=== PATIENT | female | born 1965 | race Caucasian/White ===

== ENCOUNTER 2019-01-29 18:19 | Inpatient (IN) | payer MEDICARE, MEDICAID ==
[~2019-01-29] VITALS: Ht 149.8 cm; Wt 82.6 kg
--- NOTE | ~2019-01-29 | PN ---
[place], [place] PROGRESS NOTE NAME: MARYLU RIVAS UNIT #: [id number] ROOM: 316 DOCTOR: HAYLEY CABRAL MD BIRTHDATE: [birth year] DATE: 02/04/19 ADDENDUM: Resident note reviewed. Agree with observations, recommendations, and overall treatment plan. HAYLEY CABRAL MD CM:PNTRANS [id number] HAYLEY CABRAL MD 02/24/19 1423 HOMER ALMARAZ MIS.LLR
--- NOTE | ~2019-01-29 | WRIGHTHP ---
[place], [place] PATIENT HISTORY AND PHYSICAL EXAM NAME: MARYLU RIVAS UNIT #: [id number] ROOM: 316 DOCTOR: HAYLEY CABRAL MD BIRTHDATE: [birth year] DOS: 01/30/2019 INITIAL PSYCHIATRIC EVALUATION CHIEF COMPLAINT: "I know people are coming to get me, I don't know what to do about it." HISTORY OF PRESENT ILLNESS: This is a 53-year-old white female who presented to the Emergency Room at [facility] acutely paranoid and delusional. The patient had reported that she fears that people have been following her and have been doing so for the last 20+ years. People come up to her house, look into her window. There are people plotting to hurt her. She has been followed at [facility], but has not responded to the medication and it was felt that an inpatient hospitalization was warranted at this time. Most recently, psychiatrically, the patient has been on Prozac, Lexapro, Geodon, Ativan, Depakote, clonidine and benztropine without benefit. PAST MEDICAL HISTORY: Remarkable for hypertension. SOCIAL HISTORY: The patient denies cigarette smoking, drinking alcohol, using illicit drugs. STRENGTHS: Ambulatory, good verbal skills. WEAKNESSES: Chronic severe mental health issues and poor coping skills. MENTAL STATUS: The patient is alert and oriented. Mood is depressed with anxious overtones and she is very paranoid and delusional. She does believe that people have attempted to come on to the unit in an effort to follow her and these people have been doing so for many, many years. She is fearful, but redirectable. Memory for the most part is intact. DIAGNOSIS: Schizoaffective disorder versus major depression, recurrent, with psychotic features. PLAN: Given the fact that she is so grossly psychotic, the current medication regimen is ineffective, I have gone ahead and discontinued Prozac, Lexapro, Geodon, Ativan, Depakote and Cogentin. Instead, I have replaced it with Invega 6 mg in the morning and Remeron 15 mg at night. We will monitor and support, engage in individual and stallworth milieu activity, returning to the least restrictive environment when psychiatrically stable. [place], [place] PATIENT HISTORY AND PHYSICAL EXAM NAME: MARYLU RIVAS UNIT #: [id number] ROOM: [facility] DOCTOR: HAYLEY CABRAL MD BIRTHDATE: [birth year] HAYLEY CABRAL MD CM:HISPHYS:PATIENT HISTORY AND PHYSICAL EXAMINATION 6 HAYLEY CABRAL MD 01/30/19 0926 interface
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
--- NOTE | ~2019-01-29 | PN ---
[place], [place] PROGRESS NOTE NAME: MARYLU RIVAS UNIT #: [id number] ROOM: 316 DOCTOR: HAYLEY CABRAL MD BIRTHDATE: [birth year] DATE: 02/02/19 ADDENDUM: Resident note reviewed. Agree with observations, recommendations, and overall treatment plan. HAYLEY CABRAL MD CM:PNTRANS [id number] HAYLEY CABRAL MD 02/24/19 1424 HOMER ALMARAZ MIS.LLR
--- NOTE | ~2019-01-29 | PR ---
[place], [place] PROGRESS NOTE NAME: MARYLU RIVAS UNIT #: [id number] ROOM: 316 DOCTOR: STACI MANN DO BIRTHDATE: [birth year] DOS: 02/02/2019 PSYCHIATRIC PROGRESS NOTE CHIEF COMPLAINT: "Hi, yesterday went well." SUMMARY OF PRESENT ILLNESS: The patient is interviewed with sitting on her bed. The patient states she is starting to feel better; however, she still thinks police is after her. She voiced that she knows that "police is coming for me, I'm wanted for shoplifting." We informed the patient that the police has not contacted us and we are not aware of any law enforcement coming for me. Per nursing staff, the patient slept throughout the night. The patient is still paranoid and mildly anxious. Yesterday, initially during the day, she kept stating that there are warrant out for her arrest for shoplifting and social security. She voiced "part of me feel like I'm have not allowed to live, got in trouble 25 years ago, they overlooked it somehow. She did state that prior to admission she thought her house, TV and phone were bugged and the TV was speaking to her. She also states she was afraid that she will get agitated every time she heard them; she thought they were talking about her. Throughout the day, though she started to become calmer. She did have an opportunity to speak with her on the phone and the conversation went well. Her even stated that she appears calmer. Later on the patient also informed nursing staff that she is no longer hearing the voices through the wall. MENTAL STATUS EXAMINATION: She is alert and oriented x 3. Mood is depressed with some anxious overtones. Mood is tending more to euthymia. There is no benjie or hypomania present. The patient is paranoid about the police. Memory for the most part is intact. PLAN: Continue current medication regimen. We will engage in individual and stallworth milieu activity, returning to the least restrictive environment when psychiatrically stable. Staci Mann DO [place], [place] PROGRESS NOTE NAME: MARYLU RIVAS UNIT #: [id number] ROOM: [facility] DOCTOR: STACI MANN DO BIRTHDATE: [birth year] HAYLEY CABRAL MD CM:CITLALY [id number] STACI MANN DO 02/02/19 1233 interface
--- NOTE | ~2019-01-29 | PN ---
[place], [place] PROGRESS NOTE NAME: MARYLU RIVAS UNIT #: [id number] ROOM: 316 DOCTOR: HAYLEY CABRAL MD BIRTHDATE: [birth year] DATE: 02/03/19 ADDENDUM: Resident note reviewed. Agree with observations, recommendations, and overall treatment plan. HAYLEY CABRAL MD CM:PNTRANS [id number] 1423 HAYLEY CABRAL MD 02/24/19 1423 HOMER ALMARAZ MIS.LLR
--- NOTE | ~2019-01-29 | PR ---
[place], [place] PROGRESS NOTE NAME: MARYLU RIVAS UNIT #: [id number] ROOM: 316 DOCTOR: HAYLEY CABRAL MD BIRTHDATE: [birth year] DOS: 02/05/2019 CHIEF COMPLAINT: "How could I do the things that people say I do when I have been housebound for the last 3 years." SUMMARY OF THE VISIT: The patient was interviewed once again in her room. She continues to be very paranoid and very obsessed over people laughing at her. Nurses do report that as the day progresses, she does seem to be less depressed and the meds do seem to be taking hold. She is able to question some of her thoughts at times. Outwardly, she is tolerating the medication regimen well without any sedation, somnolence, extrapyramidal symptoms or tardive dyskinesia. MENTAL STATUS: She is alert and oriented with minor time gaps, but overall intact. Mood does seem to be somewhat depressed and anxious, but redirectable. PLAN: At this point in time, I will maintain her current psychotropic regimen that includes Invega oral, Invega Sustenna. She is due for a secondary loading dose on Friday as well as the Geodon 80 mg twice daily. The patient is pushing for discharge and at this point in time, I did tell her that my plan would be to receive a secondary loading dose of Invega Sustenna on Friday and monitor then over the next 24 hours for both risks and benefits. If she is stable and exhibiting no significant issues, would look to discharge then. HAYLEY CABRAL MD CM:PNTRANS [phone] HAYLEY CABRAL MD 02/05/19 0933 interface
--- NOTE | ~2019-01-29 | PR ---
[place], [place] PROGRESS NOTE NAME: MARYLU RIVAS UNIT #: [id number] ROOM: 316 DOCTOR: HAYLEY CABRAL MD BIRTHDATE: [birth year] DOS: 02/01/2019 INTERVAL NOTE CHIEF COMPLAINT: "I know, they think I am a snitch. I know, everyone is talking about me. Nothing is going to get better. I have been this way for 25 years." SUMMARY OF THE VISIT: The patient was interviewed with one of the nurses present. She was very negative and paranoid, very nihilistic in her beliefs. I attempted to support and redirect and ultimately stated that we would agree to disagree that her illness is making it such that all she can think of is negative. Outwardly, she is tolerating the medicine well. She did require much p.r.n. intervention yesterday with minimal results, but tolerated everything well. MENTAL STATUS: She is alert and oriented. Mood does seem to be very depressed and she remains very delusional and nihilistic and paranoid. PLAN: I am going to go ahead and discontinue her straight Vistaril and utilize Ativan 1 mg t.i.d. and Geodon 80 mg b.i.d. augmented by the Invega 6 mg in the a.m. My hope is that through the use of 2 antipsychotics, we will breakthrough this horrible psychosis that has yet to budge with the current medication regimen. We will engage in individual and stallworth milieu activity, returning to the least restrictive environment when psychiatrically stable. HAYLEY CABRAL MD CM:PNTRANS [id number] HAYLEY CABRAL MD 02/01/19 2251 interface
--- NOTE | ~2019-01-29 | PR ---
[place], [place] PROGRESS NOTE NAME: MARYLU RIVAS UNIT #: [id number] ROOM: 316 DOCTOR: STACI MANN DO BIRTHDATE: [birth year] DOS: 02/03/2019 PSYCHIATRIC PROGRESS NOTE CHIEF COMPLAINT: "I know you are here to make fun of me and take me to shelter." SUMMARY OF VISIT: The patient is interviewed while sitting on her bed. She is constantly fidgeting and having her eyes dark everywhere while talking to us. The patient repeatedly states that everyone is laughing at her and we are liars. She voiced stop laughing at me, I can hear you in the hallway, you think I am an actress wearing wires. We attempted to redirect the patient that we are not laughing at her and the police are not here for her, but the patient remains fixated on these delusions. The patient mentioned that she wanted to speak to her grain thresher in [place] who she is known for 15 years and states that that grain thresher does not laugh at her. We mentioned Staci Soler to her who is a grain thresher who she saw in the ED and the patient is familiar with her name and states she is willing to speak to her. Per nursing staff, the patient continues to be anxious and paranoid. She refused breakfast and vitals, stating that all the staff are liars. She required redirection and continues to be unreceptive to presentation of reality. She thought that the maintenance men on the floor that were working were undercover police liaison officer spying on her. She also continues to pace the hallways and tell staff members that people are talking about her. The patient did sleep throughout most of the night; however, she woke up for about 1 hour approaching nurse's desk and stating that the police are coming to take her to shelter because the voices told her. When asked if she is having any auditory hallucinations, she denied hearing any voices. MENTAL STATUS EXAMINATION: She is alert and oriented. Mood is depressed and anxious. She was very paranoid and delusional. There is no benjie or hypomania. Memory for the most part is intact. PLAN: Invega Sustenna 234 mg IM today. We will engage in individual and stallworth milieu activity, returning to the least restrictive environment when psychiatrically stable. Staci Mann DO [place], [place] PROGRESS NOTE NAME: MARYLU RIVAS UNIT #: [id number] ROOM: [facility] DOCTOR: STACI MANN DO BIRTHDATE: [birth year] HAYLEY CABRAL MD CM:PNTRANS [phone] STACI MANN DO 03/10/19 0943 interface
--- NOTE | ~2019-01-29 | PR ---
[place], [place] PROGRESS NOTE NAME: MARYLU RIVAS UNIT #: [id number] ROOM: 316 DOCTOR: HAYLEY CABRAL MD BIRTHDATE: [birth year] DOS: 01/31/2019 INTERVAL NOTE CHIEF COMPLAINT: "I just know they are out to get me, I am not going to do anything bad, I hear them telling me I should do bad things." SUMMARY OF THE VISIT: The patient was interviewed as she was sitting on her bed once again rocking. She was sitting with one of the nurses who was redirecting her and supporting her. We discussed how she is doing and she reports she is still feeling paranoid and realizes at some level that these are irrational thoughts. She did report that she slept a little better. Her major other complaint was overriding anxiety throughout the day. She has used Ativan p.r.n. with good results without oversedation or somnolence. MENTAL STATUS: She is alert and oriented. Mood does seem to be depressed with anxious overtones and significant paranoia remains. Memory for the most part is intact. PLAN: Her blood pressure has been running low. I will discontinue her Catapres and have nursing monitor closely. I will add Vistaril 50 mg 3 times daily straight to decrease her anxiety. We will engage her in individual and stallworth milieu activity, returning to the least restrictive environment when psychiatrically stable. HAYLEY CABRAL MD CM:PNTRANS 15 HAYLEY CABRAL MD 01/31/192114 interface
--- NOTE | ~2019-01-29 | EKG ---
[place], [place] ELECTROCARDIOGRAM REPORT NAME: MARYLU RIVAS UNIT #: [id number] ROOM: 316 DOCTOR: ANNE-MARIE DRAFT REPORT BIRTHDATE: [birth year] [facility] Test Date: 2019-01-29 Test Time: 21:24:08 Pat Name: MARYLU RIVAS Department: Room: 316 Gender: F Instrumentation Designer: : 1965 Requested By: JS JUAREZ Order Number: [id number] Reading MD: Italia Rosario MD Measurements Intervals [place] Rate: 78 P: 53 SD: 127 QRS: 26 QRSD: 78 T: -13 QT: 412 QTc: 470 Interpretive Statements Sinus rhythm Electronically Signed On 02-01-2019 10:03:12 PDT by Italia Rosario MD CM:EKGRPT:ELECTROCARDIOGRAM REPORT 23 1003 JS JUAREZ EPIPHANY DRAFT REPORT JS JUAREZ
--- NOTE | 2019-01-29 19:05 | NUR ---
REPORT RECEIVED FROM RAJWINDER Taylor RN AT THIS TIME
[2019-01-29 20:10] LABS: BASO % 0.5 % (0.0-1.0); EOS % 0.7 % (1.0-4.0); HEMATOCRIT 40.5 % (37.0-47.0); HEMOGLOBIN 13.9 g/dl (12.0-16.0); LYMPH # 1.4 10*3/uL (1.3-4.4); MEAN CELL VOLUME 91.6 fl (81.0-99.0); MEAN CORPUSCULAR HGB 31.4 pg (27.0-31.0); MEAN CORPUSCULAR HGB CONC 34.3 g/dl (33.0-37.0); MONO # 0.7 10*3/uL (0.1-1.0); MONO % 11.6 % (3.0-9.0); NEUT # 3.7 10*3/uL (2.3-7.9); NEUT % 63.9 % (47.0-73.0); PLATELET COUNT AUTOMATED 194 10*3/uL (130-400); RED BLOOD COUNT 4.42 10*6/uL (4.10-5.10); RED CELL DISTRI WIDTH 14.7 % (0-14.5); WHITE BLOOD COUNT 5.9 10*3/uL (4.8-10.8)
[2019-01-29 20:25] LABS: ALBUMIN 3.5 gm/dl (3.1-4.5); ALKALINE PHOSPHATASE 63 U/L (45-117); BUN 20 mg/dl (7-24); CHLORIDE 106 mmol/L (98-107); CREATININE 1.09 mg/dL (0.55-1.02); POTASSIUM 3.3 mmol/L (3.5-5.1); SGOT/AST 16 IU/L (3-35); SGPT/ALT 26 U/L (12-78); SODIUM 139 mmol/L (136-145); TOTAL PROTEIN 7.4 gm/dL (6.4-8.2)
[2019-01-29 20:27] LABS: ACETAMINOPHEN (TYLENOL) < 5.0 ug/ml (10-30); ETHYL ALCOHOL < 3.0 mg/dl (<3)
--- NOTE | 2019-01-29 21:09 | NUR ---
PT TO DESK ASKING IF SHE HAS WARRANTS FOR HER ARREST STATES SHE KNOWS SHE HAS WARRANTS FOR SHOP LIFTING 25 YEARS AGO I EXPLAINED TO PT I DONT KNOW ANYTHING ABOUT THAT PT WANTS TO KNOW IF SHE IS BEING DISCHARGED BUT WE ARE WAITING ON MATTHEW MA TO COME AND SEE THE PT I EXPLAINED IT WAS NOT MY DECISION TO DISCHARGE HER AND SHE HAS TO WAIT AND TALK TO MATTHEW PT BACK TO ROOM FAMILY IN ROOM
--- NOTE | 2019-01-29 21:40 | NUR ---
Nurse to nurse report received from Masha GAMINO.
--- NOTE | 2019-01-29 22:00 | NUR ---
Patient reports that she is feeling paranoid, she believes the police are here to press charges against her. Patient continuing to get agitated.
--- NOTE | 2019-01-29 22:21 | NUR ---
Family member leaving at this time. Patient's remains at bedside.
[2019-01-29 22:24] LABS: BILIRUBIN NEGATIVE (NEGATIVE); BLOOD NEGATIVE (NEGATIVE); CLARITY CLEAR (CLEAR); COLOR YELLOW (YELLOW); GLUCOSE NEGATIVE (NEGATIVE); KETONE 1+ (NEGATIVE); LEUKO ESTERASE NEGATIVE (NEGATIVE); NITRITE NEGATIVE (NEGATIVE); PH >= 9.0 (5.0-9.0)
[2019-01-29 22:33] LABS: URINE AMPHETAMINES < 1000 (1000ng/ml); URINE BARBITURATES < 200 (200ng/ml); URINE BENZODIAZEPINES < 200 (200ng/ml); URINE CANNABINOIDS (THC) < 50 (50ng/ml); URINE COCAINE < 300 (300ng/ml); URINE METHADONE < 300 (300ng/ml); URINE OPIATES < 300 (300ng/ml)
[2019-01-29 22:34] LABS: URINE PHENCYCLIDINE < 25 (25ng/ml)
[2019-01-29] MEDS ORDERED: FLUOXETINE HCL40 MG PO (23:21)
[2019-01-29] MEDS ORDERED: GEODON80 MG PO (23:22)
[2019-01-29] MEDS ORDERED: LEXAPRO10 MG PO (23:22)
[2019-01-29] MEDS ORDERED: ATIVAN1 MG PO (23:23)
[2019-01-29] MEDS ORDERED: 'CLONIDINE0.1 MG PO (23:23)
[2019-01-29] MEDS ORDERED: DEPAKOTE ER500 MG PO (23:23)
[2019-01-29] MEDS ORDERED: BENZTROPINE MESY1 MG PO (23:24)
--- NOTE | 2019-01-29 23:40 | NUR ---
MATTHEW MA NOTIFIED WE ARE ADMITTING CLIENT
--- NOTE | 2019-01-30 00:45 | NUR ---
ROBMARYLU a 53 year old F admitted via wheel chair from the EMERGENCY ROOM as a emergency 72 hr. hold admission. Arrived on unit at 0045. ALLERGIES: NKA. Vital signs are: 98.2-72-18 120/78. The client REFUSED TO SIGN ANY ADMISSION PAPERS AT THIS TIME. Admitted under the services of Dr. MISHA BRYAN,[facility]. A search was conducted and hazardous articles were removed. Client was oriented to the unit. PT VERY FEARFUL. VOICES NUMEROUS PARANOID & PERSECUTORY DELUSIONS & IS UNRECEPTIVE TO PRESENTATION OF REALITY. VOICED IDEAS OF REFERENCE FROM THE TV & STATED THE PRESIDENT IS GIVING HER SIGNALS, ESPECIALLY WHEN THE MESSAGES COME ACROSS THE SCREEN. AFTER TAKING PTS VITAL SIGNS, SHE ASKED IF THAT MACHINE WAS "BRINGING UP HER FELONY CHARGES". PER AUTOMATIC SCREWMAKER, PT TOOK ALL OF HER HS MEDICATIONS WHILE IN ER FROM HOME & FAMILY TOOK MEDICATIONS WITH THEM. PT ALSO RECEIVED ATIVAN 1 MG IM AT 0021 IN ER. FINA QUEZADA
--- NOTE | 2019-01-30 01:09 | NUR ---
DR CHING NOTIFIED OF ADMISSION
[2019-01-30 01:19] VITALS: BP 120/78
--- NOTE | 2019-01-30 01:23 | NUR ---
CLIENT DENIES ANY ALLERGIES
--- NOTE | 2019-01-30 01:44 | NUR ---
DR HARRINGTON ON UNIT TO SEE PT FOR MEDICAL CONSULT.
[2019-01-30 01:52] VITALS: BP 120/78
--- NOTE | 2019-01-30 05:18 | NUR ---
PT WAS NOTED TO BE SLEEPING @ 0145 & SLEPT UNTIL 0515 WITH A BRIEF AWAKENING & CAME TO STAFF STATING THAT HER NEIGHBOR IS HERE & SHE IS FOLLOWING HER. REASSURANCE PROVIDED. PT HESITANT BUT RETURNED TO HER ROOM & WENT BACK TO SLEEP.
[2019-01-30 07:29] LABS: THYROID STIM HORMONE (HS) 2.98 uIU/ml (0.358-4.75)
[2019-01-30 08:00] VITALS: BP 112/80
[2019-01-30 08:17] LABS: VITAMIN D, 25-HYDROXY 15.6 ng/mL (30-100)
--- NOTE | 2019-01-30 08:30 | NUR ---
DR. DEL REAL NOTIFIED OF K DUR NOT AVAILABLE FROM [facility]; ONE TIME K DUR 40MEQ DUE.
--- NOTE | 2019-01-30 11:04 | NUR ---
DR. ABBASI ON UNIT TO ASSESS PATIENT.
--- NOTE | 2019-01-30 11:38 | NUR ---
AM GROUP/CRAFTS/MUSIC PT ATTENDED FIRST 10 MINUTES OF GROUP AND PARTICIPATED IN A SHORT CHAIR EXERCISE. PT THEN LEFT TO NOT RETURN TO GROUP. PT'S NURSE INFORMED THIS STAFF THAT PT IS HEARING VOICES AND REQUESTS MUSIC IN QUIET ROOM. PT REMAINED IN QUIET ROOM WITH MUSIC REMIANDER OF GROUP TIME. PT WILL CONTINUE TO BE ECNOURAGED TO ATTEND AND PARTICIPATE IN FUTURE GROUP SESSIONS.
--- NOTE | 2019-01-30 11:59 | NUR ---
P: INCREASED PARANOIA, EYE SCANNING, AUDITORY/VISUAL HALLUCINATION, FIXED DELUSION VOICING THOUGHTS THAT POLICE ARE AFTER HER. BUGS PLACED IN PLANTS. MOVIE ON IN THE DINING ROOM; PATIENT STATES SHE IS ON THE TV A WANTED PERSON. VOICES ARE TELLING THE POLICE WILL GET HER WHEN SHE GOES HOME. EDGAR HEARS THE SECURTIY WALKIE TALKIE ANG THINKING THE POLICE ARE LOOKING FOR HER. I: ONE ON ONE PROVIDED TO VOICE FEELING, VALIDATING PATIENT CONCERNS WITH HER VOICES AND PROVIDING ALOT OF REASSURANCE. R: ONE ON ONE EFFECTIVE BUT PATIENT STILL BELIEVES THE VOICES. PATIENT VOICING SHE IS NOT ABLE TO REST. REQUESTING SOMETHING TO HELP. P: PRN ATIVAN 1MG GIVEN PO FOR INCREASED ANXIETY. CONTINUE TO PROVIDE ONE ONE ONE SUPPORT AND REORIENT NEEDED.
--- NOTE | 2019-01-30 12:39 | NUR ---
psychosocial hx completed this date.
--- NOTE | 2019-01-30 13:00 | NUR ---
ASKED PATIENT IF MEDICATION WAS HELPING. PATIENT STATED YES. PRN ATIVAN EFFECTIVE. PATIENT RESTING IN BED AT THIS TIME.
--- NOTE | 2019-01-30 15:49 | NUR ---
PM GROUP/LEISURE SKILLS PT ATTENDED AND PARTICIPATED IN THE FIRST HALF OF GROUP ALTHOUGH PT STATED "I THINK IM JUST GOING TO STAY IN MY ROOM" WHEN THIS STAFF ENCOURAGED PT TO ATTEND GROUP, WITH NURSES ASSITED ENCOURAGEMENT PT ATTENDED. PT ISOLATIVE TO SELF. PT WILL CONTINUE TO BE ENCOURAGED TO ATTEND AND PARTICIPATE IN FUTURE GROUP SESSIONS.
[2019-01-30 20:25] VITALS: BP 134/76
--- NOTE | 2019-01-30 23:37 | NUR ---
P-PARANOID THOUGHTS, PATIENT APPROACHED STAFF STATING "THAT RADIO THAT IS GOING OFF, IS THAT FOR ME? ARE THE COMMERCIAL REAL ESTATE ASSOCIATE COMING FOR ME?". I- ASSESS ORIENTATION, MOOD, AND BEHAVIOR. PROVIDE 1:1 FOR PATIENT TO VOICE THOUGHTS AND FEARS. PROVIDE EMOTIONAL SUPPORT WITH ASSURENCE OF SAFETY. ENCOURAGE MEDICATION COMPLIANCE AND EDUCATE. R-PATIENT ALERT AND ORIENTED X4. MOOD ANXIOUS, DEPRESSED. PT CALM, COOPERATIVE, AND INTERACTIVE. DURING 1:1 PATIENT STATED "IM TRYING TO GET OUT OF THE ROOM MORE AND INTERACT WITH PEOPLE, I ALSO COLORED SOME TOO". PATIENT ALSO STATED "I HAVE BEEN DEALING WITH THIS PARANOIA FOR YEARS, BUT NOW IM STARTING TO LOSE REALITY ALSO AND HAVING TROUBLE REMEMBERING NUMBERS". PT PROVIDED WITH EMOTIONAL SUPPORT AND REASSURANCE OF SAFETY, PT RECEPTIVE TO INTERVENTIONS WITH POSITIVE EFFECT. DENIES SI/HI AND HALLUCINATIONS, NO NOTED RESPONDING TO INTERNAL STIMULI. MEDICATION COMPLIANT WITHOUT DIFFICULTY AFTER REVIEW. NO PHYSICAL COMPLAINTS VOICED. PATIENT CURRENTLY LAYING DOWN WITH EYES CLOSED. RESPIRATIONS EASY AND REGULAR, NO SIGNS OR SYMPTOMS OF DISTRESS NOTED. P-CONTINUE TO PROVIDE 1:1 FOR PATIENT TO VOICE THOUGHTS AND FEARS. PROVIDE REALITY ORIENTATION, REASSURANCE OF SAFETY AND EMOTIONAL SUPPORT NEEDED. ENCOURAGE MEDICATION COMPLIANCE. MAINTAIN Q 15 MIN CHECKS.
--- NOTE | 2019-01-31 00:27 | NUR ---
24 HOUR CHART CHECK COMPLETED.
--- NOTE | 2019-01-31 05:47 | NUR ---
PATIENT OBSERVED ON Q 15 MIN SAFETY CHECKS TO HAVE SLEPT APPROX 5 HOURS INTERRUPTED WITH MULTIPLE AWAKENINGS NOTED OF PATIENT VERBALIZING PARANOID THOUGHTS, "WHEN ARE THE SECTION HOUSEKEEPER COMING TO GET ME FOR WARRENTS I HAVE". 1:1, REALITY ORIENTATION, AND EMOTIONAL SUPPORT PROVIDED WITH SUCCESS. NO SIGNS OR SYMPTOMS OF DISTRESS NOTED.
[2019-01-31 06:55] LABS: BASO # 0.1 10*3/uL (0.0-0.1); BASO % 0.9 % (0.0-1.0); EOS # 0.1 10*3/uL (0.0-0.4); EOS % 2.2 % (1.0-4.0); HEMATOCRIT 44.7 % (37.0-47.0); HEMOGLOBIN 14.8 g/dl (12.0-16.0); LYMPH # 1.4 10*3/uL (1.3-4.4); LYMPH % 24.8 % (27.0-41.0); MEAN CELL VOLUME 94.5 fl (81.0-99.0); MEAN CORPUSCULAR HGB 31.3 pg (27.0-31.0); MEAN CORPUSCULAR HGB CONC 33.1 g/dl (33.0-37.0); MEAN PLATELET VOLUME 10.1 fl (9.6-12.3); MONO # 0.7 10*3/uL (0.1-1.0); MONO % 11.2 % (3.0-9.0); NEUT # 3.5 10*3/uL (2.3-7.9); NEUT % 60.7 % (47.0-73.0); PLATELET COUNT AUTOMATED 204 10*3/uL (130-400); RED BLOOD COUNT 4.73 10*6/uL (4.10-5.10); RED CELL DISTRI WIDTH 14.8 % (0-14.5); WHITE BLOOD COUNT 5.8 10*3/uL (4.8-10.8)
[2019-01-31 07:08] LABS: ALBUMIN 3.3 gm/dl (3.1-4.5); CREATININE 1.14 mg/dL (0.55-1.02); POTASSIUM 3.8 mmol/L (3.5-5.1); TOTAL PROTEIN 7.5 gm/dL (6.4-8.2)
[2019-01-31 07:51] VITALS: BP 115/59
--- NOTE | 2019-01-31 10:26 | NUR ---
ON UNIT TO ASSESS PT, UPDATE PROVIDED.
--- NOTE | 2019-01-31 10:51 | NUR ---
P: PARANOID/PERSECTORY DELUSION, AUDITORY HALLUCINATIONS. ACCUSSING STAFF OF SETTING HER UP, OTHERS ARE TALKING ABOUT HER, THINKS SHE IS ON TV WITH WARRART WHILE OTHER PATIENTS ARE WATCHING A Saranas MOVIE. ASKED THIS NURSE IF I WAS A MARKETING AND PROMOTIONS MANAGER AND HAD ANY WARRARTS ON HER TO CHECK AND SEE. PATIENT PREOCCUPIED ABOUT WANTING TO GO HOME. PACING UP AND DOWN HALLWAY FROM NURSES STATION AND HER ROOM. I: ONE ON ONE, ENCOURAGED TO SIT IN QUIET ROOM FOR LOW STIMULI AREA WITH MUSIC THERAPY. REDIRECTION/REORIENTATION, PRESENTING REALITY NEEDED. R: INEFFECTIVE P: PRN ATIVAN 1MG PO GIVEN AT THIS TIME PATIENT IS ALERT AND ORIENT TO PERSON, PLACE AND SITUATION. MOOD IS ANXIOUS/IRRITABLE. DENIES ANY HI/SI OR PAIN. INDEPENDENT WITH ACTIVITIES OF DAILY LIVING, CONTINENT OF BOWEL AND BLADDER. SET UP FOR MEALS, INTAKES VARY WITH ENCOURAGEMENT TO DRINK MORE LIQUIDS. Q 15 MINUTE SAFETY CHECKS. MEDICATION COMPLAINT WITH EDUCATION PROVIDED. AMBULATORY WITH STEADY GAIT. CONTINUE TO MONITOR FOR HALLUCINATIONS AND DELUSIONS; PROVIDE ONE ON ONE, REDIRECTION/ORIENTATION AND REALITY NEEDED.
--- NOTE | 2019-01-31 11:59 | NUR ---
PRN ATIVAN EFFECTIVE PER PATIENT.
--- NOTE | 2019-01-31 13:36 | NUR ---
PATIENT PACING, INCREASING COMING UP TO THE NURSES STATION WITH FIXED DELUSIONS OF THE POLICE COMING TO GET HER WITH A WARRANT. ONE ON ONE, REDIRECTION, ENCOURAGED PATIENT TO GO IN QUIET ROOM WITH LOW STIMULI, REALITY PRESENTED. PATIENT WILL NOT LISTEN TO NURSES AT THE NURSE STATION. INEFFECTIVE. PATIENT UP AT NURSES STATION EVERY 30 SECONDS, THEN WOULD CALL THE NURSES LIARS. DR. CABRAL NOTIIFED. OKAY TO GIVE PRN GEODON NOW. PATIENT RECEIVED GEODON 20MG IM TO RIGHT DELTOID AND TOLATED WELL. PATIENT ENCOURAGED TO LAY DOWN IN BED TO REST.
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
--- NOTE | 2019-01-31 16:11 | NUR ---
PATIENT UP AT NURSES STATION MULTIPLE TIMES WITH REDIRECTION/ORIENTATION TO PERSON, PLACE AND TIME. REASSURANCE THAT PATIENT IS SAFE IN HOSPITAL AND NO ONE IS SETTING HER UP. LIMIT SETTING PROVIDED. CONTINUING TO MONITOR EFFECTIVENESS OF ATIVAN.
--- NOTE | 2019-01-31 16:21 | NUR ---
PM GROUP/BINGO/LEISURE SKILLS PT NOT APPROPRIATE FOR GROUP DUE TO PT PARANOIA. PT TOOK THIS STAFF ASIDE BEFORE GROUP ASKING WHY SHE HAS A WARRANT FOR MURDER. THIS STAFF ATTEMPTED TO COMFORT PT BY EXPLAINING THAT PT IS SAFE HERE AND GROUP THERAPY MAY HELP IN DISTRACTING PT. PT DID NOT ATTEND AND KEPT ASKING THE NURSES THE SAME QUESTIONS OVER. PT THEN CAME INTO ACTIVITIES YELLING AT THIS STAFF "WHY WOULD YOU ACCUSE ME OF HURTING ANYONE, I WOULD NEVER DO THAT" THIS STAFF THEN EXPLAINS THAT NOBODY IS ACCUSING HER OF ANYTHING. PT THEN EXITED AND DID NOT RETURN BACK TO ACTIVITIES. PT WILL CONTINUE TO BE ENCOURAGED TO ATTEND AND PARTICIPATE IN FUTURE GROUP ACTIVITIES.
--- NOTE | 2019-01-31 16:30 | NUR ---
PATIENT UP AT NURSES STATION, DINNER READY. ENCOURAGED PATIENT TO SIT AT TIME TO EAT DINNER. PATIENT REFUSED DINNER. PATIENT RETURNED TO ROOM.
--- NOTE | 2019-01-31 16:50 | NUR ---
PATIENT RESTING IN BED, RESTING QUIETLY. PRN ATIVAN EFFECTIVE.
[2019-01-31 20:28] VITALS: BP 124/85
--- NOTE | 2019-02-01 01:32 | NUR ---
P-PARANOID/PERSECTORY, PT CONTINUES TO ACCUSE STAFF OF SETTING HER UP, TALKING ABOUT HER, AND FILING COURT PAPERS ON HER TO PRESS CHARGES. PT ALSO REMAINS PREOCCUPIED THAT FRONT OFFICE JAVA DEVELOPER ARE COMING FOR HER TO TAKE HER TO LONG-TERM. I- PROVIDE REALITY ORIENTATION WITH REDIRECTION. PROVIDE 1:1 FOR PATIENT TO VOICE THOUGHTS AND FEARS. PROVIDE EMOTIONAL SUPPORT WITH ASSURENCE OF SAFETY. ENCOURAGE MEDICATION COMPLIANCE AND EDUCATE. R-PT PRESENTED WITH REALITY ON MULTIPLE OCCASIONS WITH NO SUCCESS, PT CONTINUES TO BE FIXATED THAT POLICE ARE COMING FOR HER WITH WARRENTS, PT ALSO STATED TO THIS NURSE DURING 1:1 "I DONT KNOW WHAT YOU ALL ARE DOING AROUND HERE BUT I KNOW ITS SOMETHING, I DONT KNOW WHY EVERYONE IS LYING". PT ALSO NOTED TO BECOME INTRUSIVE AND DISRUPTIVE AT TIMES, APPROACHING STAFF AND THE NURSES STATION WITH VARIOUS ACCUSATIONS, REDIRECTED WITH MINIMAL AGITATION AND DIFFICULTY EACH TIME. PT PROVIDED WITH EMOTIONAL SUPPORT AND REASSURANCE OF SAFETY, PT RECEPTIVE TO INTERVENTIONS WITH POSITIVE EFFECT FOR SHORT PERIODS. ALERT AND ORIENTED X4. DENIES SI/HI AND HALLUCINATIONS, NO NOTED RESPONDING TO INTERNAL STIMULI. MEDICATION COMPLIANT WITHOUT DIFFICULTY AFTER REVIEW. RECEIVED PRN TYLENOL 650MG REQUESTED FOR C/O OF A HEADACHE WITH A RATING OF 8/10 AT 0124, NO OTHER PHYSICAL COMPLAINTS NOTED. PATIENT CURRENTLY LAYING DOWN WITH EYES CLOSED. RESPIRATIONS EASY AND REGULAR, NO SIGNS OR SYMPTOMS OF DISTRESS NOTED. P-CONTINUE TO PROVIDE 1:1 FOR PATIENT TO VOICE THOUGHTS AND FEARS. PROVIDE REALITY ORIENTATION, REASSURANCE OF SAFETY AND EMOTIONAL SUPPORT NEEDED. ENCOURAGE MEDICATION COMPLIANCE. MAINTAIN Q 15 MIN CHECKS.
--- NOTE | 2019-02-01 02:28 | NUR ---
24 HOUR CHART CHECK COMPLETED.
--- NOTE | 2019-02-01 05:22 | NUR ---
PATIENT OBSERVED ON Q 15 MIN CHECKS TO HAVE SLEPT APPROX 4 HOURS INTERRUPTED WITH MULTIPLE AWAKENINGS NOTED OF PATIENT APPROACHING STAFF DURING Q 15 MIN CHECKS STATING "WHAT ARE YOU SAYING ABOUT ME, I KNOW YOU SAID SOMETHING ABOUT ME", PT REORIENTED TO REALITY AND REDIRECTED BACK TO BED. NO SIGNS OR SYMPTOMS OF DISTRESS NOTED.
[2019-02-01 07:15] VITALS: BP 130/70
--- NOTE | 2019-02-01 08:15 | NUR ---
Treatment Plan meeting with Dr. Marti RN, AT and Care Clinician. Plan for discharge at the end of the week. Pt. to return home with Spouse.
--- NOTE | 2019-02-01 08:20 | NUR ---
DR. ABBASI ON UNIT TO ASSESS PATIENT.
--- NOTE | 2019-02-01 11:35 | NUR ---
AM GROUP/LEISURE PT ATTENDED AND PARTICIPATED SOME. PT HAD TROUBLE FOCUSING DUE TO THOUGHTS RACING, THIS STAFF ATTEMPTED TO GET PT TO FOCUS ON MUSIC. PT KEPT ASSOCIATING STAFF CONVERSATIONS TO BE ABOUT HER WHEN THEY WERE NOT. THIS STAFF KEPT REDIRECTING PT. PT TEARFUL AT TIMES STATING "I JUST CANT TRUST ANYBODY, HOW AM I SUPPOSED TO BELIEVE YOU?" THIS STAFF ATTEMPTED TO COMFORT PT. PT MORE RELAXED AT TIMES LISTENING TO PEER ALTHOUGH WOULD BECOME PARANOID WITHIN A FEW MINUTES AND IN NEED OF REDIRECTION AND REORIENTATION. PT WILL CONTINUE TO BE ENCOURAGED TO ATTEND AND PARTICIPATE IN FUTURE GROUP SESSIONS.
--- NOTE | 2019-02-01 15:51 | NUR ---
PM GROUP/ART/MUSIC PT ATTENDED AND PARTICIPATED. PT DID NOT SAY MUCH AND WORKED ON PAINTING BIRDHOUSE AND LISTENING TO MUSIC. A PEER INTERACTING WITH PT AND PT POLITE AND SMILING. PT DID QUESTION IF NURSES TALKING ABOUT HER BUT PT EASIER TO REDIRECT THIS GROUP. PT DID NOT EXPRESS ANY HALLUCINATIONS AT THIS TIME. PT WILL CONTINUE TO BE ENCOURAGED TO ATTEND AND PARTICIPATE IN FUTURE GROUP SESSIONS.
--- NOTE | 2019-02-01 17:02 | NUR ---
PATIENT IS ALERT AND ORIENTED TO PERSON, PLACE, SITUATION;ABLE TO VOICE NEEDS. MOOD IS IRRITABLE, ANXIOUS AND LABILE. PATIENT IS PREOCCUPIED AND PARANOID, HAVING AUDITORY HALLUCINATIONS AND FIXED DELUSIONS OF GOING TO GROUP HOME AFTER HOSPTIAL STAY. TALKS ABOUT DR. ROBLEDO BEING ANGRY AT HER FOR THE BOX OF MEDICATIONS SHE HAS. STATING THEY ARE IN THE OTHER ROOM. PATIENT PROVIDED WITH REORIENTATION, REDIRECTION, ONE ON ONE WITH GUIDED IMAGERY NEEDED TO HELP WITH ANXIOUS. MEDICATION COMPLAINT WITH EDUCATION PROVIDED. Q 1`5 MINUTE SAFETY CHECKS MAINTAINED. INDEPENDENT WITH ACTIVITIES OF DAILY LIVING, CONTINENT OF BOWEL AND BLADDER. SET UP FOR MEALS WITH ENCOURAGEMENT. AMBULATORY WITH STEADY GAIT. PATIENT INTERACTIVE WITH STAFF AND PARTICIPATED IN GROUP SESSION. CONTINUE TO MONITOR PARANOIA, PROIVIDE ONE ONE ONE TO EXPRESS FEELING, REDIRECTION/ORIENTATION WITH REALITY. MONITORING MEDICATION CHANGES.
[2019-02-01 20:00] VITALS: BP 125/65
--- NOTE | 2019-02-01 20:20 | NUR ---
24 HR chart check completed.
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
--- NOTE | 2019-02-02 05:02 | NUR ---
PT HAS SLEPT PAST 2200 WITH 2 BRIEF AWAKENINGS TO GO TO THE BATHROOM.
[2019-02-02 07:58] VITALS: BP 120/72
--- NOTE | 2019-02-02 08:15 | NUR ---
Treatment Plan meeting with Dr. Figueroa RN and Meat Blender. Plan for discharge at the end of the week.
--- NOTE | 2019-02-02 10:05 | NUR ---
DR. ABBASI ON FLOOR TO ASSESS PATIENT.
--- NOTE | 2019-02-02 10:34 | NUR ---
P: DELUSIONAL THOUGHT PROCESS, PARANOID AND ISOLATES SELF IN BEDROOM OR QUIET ROOM I: PRESENT REALITY OFTEN. 1:1 INTERACTION WITH EMOTIONAL SUPPORT PROVIDED. ENCOURAGE TO ATTEND GROUP ACTIVITIES FOR SOCIALIZATION AND EMOTIONAL SUPPORT. OFFER RELAXATION TECHNIQUES AND DIVERSIONAL ACTIVITIES. PROVIDE MEDICATIONS ON TIME WITH EDUCATION. INTRODUCE EACH STAFF AND THEIR ROLE ON THE UNIT. REASSURE THAT THERE IS NO ONE TALKING ABOUT HER. R: PT STATES THAT SHE BELIEVES THAT THERE ARE CHARGES AGAINST HER AND THAT SHE WILL BE GOING TO LONG TERM AFTER SHE GETS OUT OF HERE. PT CONTINUES TO ASK STAFF ABOUT HER CHARGES AND WHAT WILL BE DONE WHILE SHE IS STAYING HERE. PT STATES THAT HER FRIEND 'ERICK' HAD HELPED HER GET SUPPORT FROM THE GOVERNMENT THROUGH SOME KIND OF MEDICARE AND BECAUSE SHE ALREADY HAS SO MUCH MONEY THAT SHE IS NOW IN A LOT OF TROUBLE. PRESENTING REALITY TO PT IS INEFFECTIVE AND DOES NOT BELIEVE THAT SHE DOES NOT HAVE ANY CHARGES AGAINST HER. PT IS MEDICATION COMPLIANT WITH NO DIFFICULTIES. PT ISOLATING SELF INTO QUIET ROOM OR BEDROOM, PT WILL KEEP COMING OUT AND STATING THAT THERE WAS CHARGES AGAINST HER OR THERE WAS AN WORKSHOP MANAGER ON THE FLOOR. REASSURANCE INEFFECTIVE. PT ATTENDING GROUP WITH MUCH ENCOURAGMENT. PT DENIES HALLUCINATIONS, PT IS SHOWING S&S OF AUDITORY HALLUCINATIONS OF EYE DARTING AND TURNING HER HEAD REAL FAST TO LISTEN. P: CONTINUE TO REORIENT PATIENT TO REALITY AND REINTRODUCE STAFF ROLE ON THE UNIT. REASSURE THAT NO ONE IS TALKING ABOUT HER AND THERE ARE NO ONE TALKING ABOUT HER. PRESENT TO REALTIY ABOUT DELUSIONAL THOUGHT PROCESS OF CHARGES AGAINST HER. 1:1 INTERACTION WITH EMOTIONAL SUPPORT WHEN NECESSARY. PROVIDE MEDICATIONS ON TIME PRESCRIBED BY MARIVELYISICIAN. ENCOURAGE TO ATTEND GROUP ACTIVITIES AND INTERACTION WITH PEERS AND STAFF. Q15 MINUTE CHECKS MAINTAINED FOR SAFETY.
--- NOTE | 2019-02-02 13:16 | NUR ---
Shift chart check completed.
--- NOTE | 2019-02-02 15:56 | NUR ---
Call placed to community Payroll Representative at [employer] [facility] to inquire about services in the home.
--- NOTE | 2019-02-02 17:04 | NUR ---
PT CONTINUED ALL SHIFT GOING FROM THE QUIET ROOM, STANDING NEAR THE JAVA TECH LEAD, AND SITTING IN THE DINING ROOM; SHE WOULD COME OUT AND FIND A STAFF MEMBER AND SAY THAT SOMEONE WAS TALKING ABOUT HER IN A GROUP OF PEOPLE THAT WOULD BE CONVERSING. REDIRECTION AND PRESENT TO REALITY REMAINS INEFFECTIVE. PT THOUGHT THAT THE MAINTENCE MEN WORKING LOG SCALER LIGHTS WERE UNDERCOVER PORTAL ADMINISTRATOR SPYING ON HER. REINTRODUCED PATIENT TO STAFF MEMBERS AND THEIR ROLE, REMAINS INEFFECTIVE. PATIENT HAS BEEN NONREDIRECTABLE MOST OF THE DAY. WHEN PATIENT WAS REDIRECTABLE SHE STILL WAS NOT REDIRECTED BACK TO REALITY. PT REMAINS DELUSIONAL.
[2019-02-02 20:00] VITALS: BP 135/77
--- NOTE | 2019-02-02 22:01 | NUR ---
24 HR chart check completed.
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
--- NOTE | 2019-02-03 04:23 | NUR ---
PT SLEPT PAST 2200 WITH A 1 HOUR AWAKENING & RETURNED TO SLEEP.
--- NOTE | 2019-02-03 08:00 | NUR ---
PT REFUSED VITAL SIGNS ASSESSMENT AND BREAKFAST DESPITE MULTIPLE ATTEMPTS THIS AM, PT PARANOID AND SUSPICIOUS OF STAFF AT THIS TIME, STATES "I'M NOT TALKING TO YOU GUYS BECAUSE YOU ARE ACCUSING ME OF THINGS". UNABLE TO REDIRECT OR REORIENT AT THIS TIME, WILL REAPPROACH.
--- NOTE | 2019-02-03 08:15 | NUR ---
Treatment Plan meeting with Dr. Marti, RN, AT and Proj Engineer. Plan for discharge next week. Pt. is to return home with her .
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
[2019-02-03 08:55] VITALS: BP 126/74
--- NOTE | 2019-02-03 09:00 | NUR ---
RECIEVED CALL FROM PT'S , UPDATE PROVIDED.
--- NOTE | 2019-02-03 10:56 | NUR ---
SPOKE TO AT THIS TIME, UPDATED ON PT STATUS, STATES TO GIVE GEODON 20MG IM AND ATIVAN 2MG IM NOW.
--- NOTE | 2019-02-03 11:09 | NUR ---
VERIFIED WITH PRN MEDICATIONS TO BE GIVEN AT THIS TIME D/T INCREASED PARANOIA AND AGITATION. UNABLE TO REDIRECT OR CALM DESPITE MULTIPLE AND FREQUENT INTERVENTIONS BY STAFF. MADE AWARE PT HAD GEODON 80MG PO AND ATIVAN 1MG PO THIS AM WITH MORNING MEDS AT 0954. STATES OK TO PROCEED WITH PRN GEODON 2OMG IM AT THIS TIME, DECREASE PRN ATIVAN TO BE GIVEN AT THIS TIME TO 1MG IM. WITNESSED BY 2ND RN JOSE ANGEL
--- NOTE | 2019-02-03 11:43 | NUR ---
AM GROUP/REMINISCING AND PAINTING PT CHOSE NOT TO ATTEND MORNING GROUP THERAPY DESPITE MUCH ENCOURAGEMENT. PT WILL BE ENCOURAGED TO ATTEND THIS AFTERNOON.
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
--- NOTE | 2019-02-03 13:48 | NUR ---
PT VISIBLY UPSET AT THIS TIME. INCREASING AGITATION NOTED RELATED TO CAR RENTAL DELIVERER NOT CALLING BACK AFTER MULTIPLE MESSAGES LEFT BY STAFF FOR HER TO CALL UNIT. PT ESCORTED BACK TO ROOM TO DE-ESCALATE AND CALM. LIGHTS DIMMED. PT SITTING ON BED WITH RN IN CHAIR, LISTENING TO MEDITATION MUSIC. PT MOOD APPEARS LABILE, RANGING FROM PARANOID THAT THE PEOPLE ARE OUT TO GET HER AND THE POLICE ARE COMING TO TAKE HER AWAY, TO CRYING BECAUSE SHE MISSES HER . EMOTIONAL SUPPORT PROVIDED AND REALITY PRESENTED WITHOUT EFFECT. PT VOICING THAT SHE CAN HEAR PEOPLE AND HER CALLING FOR HER. WILL CONTINUE TO PROVIDE SUPPORT AND REDIRECT.
--- NOTE | 2019-02-03 15:08 | NUR ---
Second Voice Message left for Dental Hygienist Mobile Coordinator Keke at [facility] [phone] to discuss discharge Plans.
--- NOTE | 2019-02-03 15:20 | NUR ---
TELEPHONE CONFERENCE COMPLETED WITH FRAN (PTS FINANCIAL ADVOCATE) AND PT WITH PTS CONSENT. FRAN PROVIDED PT REASSURANCE AND REALITY PRESENTATION, DID THIS RN RELATED TO PARANOID AND PERSECUTORY DELUSIONS. PT FINALLY BEGAN TO ACCEPT THAT SHE IS SUFFERING FROM PARANOIA AND MENTAL HEALTH ISSUES END THE END OF THE CONVERSATION. PT AGREED TO WORK WITH STAFF IN HER RECOVERY WHILE ADMITTED. PT NOW LAYING IN BED WITH EYES CLOSED AFTER MUCH ENCOURAGEMENT FROM STAFF TO REST AND RELAX THIS AFTERNOON. RESPS EASY AND EVEN ON ROOM AIR.
--- NOTE | 2019-02-03 15:41 | NUR ---
PM GROUP/ART AND MUSIC PT WAS PACING CARBAJAL AND INVITED TO ATTEND AFTERNOON GROUP. PT BEGAN ASKING IF I KNEW CERTAIN PEOPLE AND QUESTIONS REGARDING THE LAW. PT WAS REDIRECTED AND AGAIN ENCOURAGED TO ATTEND BUT REFUSED.
--- NOTE | 2019-02-03 17:23 | NUR ---
SHIFT CHART CHECK COMPLETED.
--- NOTE | 2019-02-03 18:28 | NUR ---
PT SLEPT THROUGH DINNER, PT AWAKE AND ALERT SITTING ON BED AT THIS TIME. PT ALLOWED THIS NURSE TO ENTER ROOM AND SIT DOWN WITH HER. PT CONTINUES TO APPEAR PARANOID BUT IS MUCH MORE CALM AND IN CONTROL OF BEHAVIOR. OFFERED PT DINNER TRAY, PT DECLINED, STATES "I'M OKAY, I WOULD LIKE SOME WATER THOUGH". GLASS OF ICE WATER PROVIDED. DISCUSSED INVEGA SUSTENNA INJECTION WITH PT, PT STATES "YEAH, I'M OKAY WITH THAT. I'VE TAKEN IT BEFORE AND IT HAS HELPED". INVEGA SUSTENNA 234MG IM GIVEN TO LEFT DELTOID AT THIS TIME WITHOUT DIFFICULTY, ADMINISTRATION OF MEDICATION VERIFIED WITH PRIOR TO BEING GIVEN MED GIVEN LATE D/T ADMINISTRATION OF PRN MEDICATIONS THIS AFTERNOON. STATES TO PROCEED WITH GIVING INVEGA SUSTENNA AT THIS TIME, WITNESSED BY 2ND RN SADE. PT TOLERATED INJECTION WELL. PT TALKING WITH ON PHONE AT THIS TIME. Q15 MIN MONITORING CONTINUES.
[2019-02-03 20:00] VITALS: BP 122/66
--- NOTE | 2019-02-03 21:56 | NUR ---
Patient is alert and oriented x 4. Anxious at times. Anxious and paranoid at times. Patient is calm at this time and laying in bed. Provided 1:1 with patient for emotional support. Patient states " I don't need anything right now. I feel sleepy and tired. I am good for right now." Patient is compliant with medications without any difficulty. Plan to redirect/reorient when appropriate and needed. Plan to provide 1:1 for emotional support. Continue to encourage medication compliance. Q 15 minute safety checks continued and maintained. See [facility] flowsheet for further documentation.
--- NOTE | 2019-02-04 00:30 | NUR ---
24 HR chart check completed.
--- NOTE | 2019-02-04 05:39 | NUR ---
Patient slept approx. 9 hours throughout shift. Q 15 minute safety checks continued and maintained.
--- NOTE | 2019-02-04 07:34 | NUR ---
PT AWAKE, ALERT, AMBULATED TO QUIET ROOM FOR BREAKFAST. EATING BREAKFAST IN QUIET ROOM AT THIS TIME PER PT'S PREFERENCE.
[2019-02-04 08:05] VITALS: BP 119/62
--- NOTE | 2019-02-04 08:15 | NUR ---
Treatment Plan meeting with Dr. Marti, RN, AT and Color Checker. Plan for discharge next week with Pt. to return home with her . Follow ups to be arranged.
--- NOTE | 2019-02-04 08:30 | NUR ---
IN TO SEE PT THIS AM, UPDATE GIVEN.
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
--- NOTE | 2019-02-04 11:40 | NUR ---
AM GROUP/ART THERAPY PT CHOSE NOT TO ATTEND MORNING GROUP THERAPY BUT WAS ENCOURAGED BY NURSING STUDENTS AND DECIDED TO ATTEND. PT CAME INTO DAY ROOM AND SAID THAT SHE WOULD PAINT. PT SAT AT TABLE WITH PEERS AND PAPER AND PAINT WAS GIVEN TO PT TO BEGIN. PT ABRUPTLY GOT UP AND STATED TO A RN CLINICAL DOCUMENTATION, "THAT LADY THINKS THAT SHE KNOWS ME! I'M NOT STAYING FOR THIS!" PT EXITED THE ROOM AND DID NOT RETURN.
--- NOTE | 2019-02-04 12:15 | NUR ---
Spoke with Pt. and Her during visiting session to discuss discharge Plans. Pt. would like for her to be discharged Early next week so that he can have her Go with him to the [facility] appointments that he has Scheduled Next week. Advised that Nozzle Worker would inform nursing staff and speak with Dr. Marti in the A.M. to discuss discharge Planning.
--- NOTE | 2019-02-04 15:42 | NUR ---
PM GROUP/LEISURE INTERESTS PT WAS IN HER ROOM SITTING ON THE BED AND WAS ENCOURAGED TO ATTEND GROUP. PT STATED, "I CAN'T BECAUSE I GO IN THERE AND EVERY TIME I MAKE THOSE OLD LADIES CRY. I DON'T WANT TO DO THAT."
--- NOTE | 2019-02-04 17:22 | NUR ---
SHIFT CHART CHECK COMPLETED.
[2019-02-04 19:45] VITALS: BP 111/63
[2019-02-04 20:00] VITALS: BP 111/63
--- NOTE | 2019-02-04 22:07 | NUR ---
Patient is alert and oriented x 4. Anxious and paranoid at times. Paranoia seems to increase when announcements over PA system or other patients are talking. Patient states "they are talking about me. That announcement says the police are coming to arrest me." Patient also states " I know it is me being paranoid again." Provided 1:1 with patient for emotional support. Redirected and reoriented when appropriate. Patient is calm and cooperative at this time laying in her bed. Patient is compliant with medication without any difficulty. Plan to continue to provide 1:1 for emotional support and to redirect/reorient when appropriate/needed. Plan to encourage medication compliance. Q 15 minute safety checks contnued and maintained. See [facility] flowsheet for further documentation.
--- NOTE | 2019-02-05 00:05 | NUR ---
24 HR chart check completed.
--- NOTE | 2019-02-05 05:26 | NUR ---
Patient slept approx. 9 hours throughout shift. Q 15 minute safety checks continued and maintained.
[2019-02-05 07:30] VITALS: BP 156/82
--- NOTE | 2019-02-05 07:43 | NUR ---
PT AWAKE, ALERT AND VERBAL. EATING BREAKFAST IN DINING ROOM WITH PEERS AT THIS TIME.
--- NOTE | 2019-02-05 08:00 | NUR ---
Treatment Plan meeting with Dr. Marti, RN, AT and English Instructor. Plan for discharge Friday. Pt. to return home with .
--- NOTE | 2019-02-05 08:54 | NUR ---
ON UNIT TO SEE PT AT THIS TIME, UPDATE PROVIDED.
--- NOTE | 2019-02-05 10:03 | NUR ---
P- PARANOID DELUSIONS, DEPRESSED MOOD, ANXIETY, PERIODS OF TEARFULNESS. PREOCCUPIED WITH THE BELIEF THIS MORNING THAT HER NAME IS IN THE PAPER AND SHE IS ON THE NEWS AND IN TROUBLE WITH THE AUTHORITIES. I- ORIENTATION, MOOD AND BEHAVIOR ASSESSED. ASSESSED PT FOR SI/HI, INTENT OR PLAN. ASSESSED PT FOR S/S HALLUCINATIONS, PARANOIA AND/OR DELUSIONS. MEDICATIONS ADMINISTERED PER PHYSICIAN'S ORDERS. ENCOURAGED PT TO COMPLETE ADL CARE WITH MUCH INDEPENDENCE POSSIBLE. ENCOURAGED PT TO ATTEND AND PARTICIPATE IN [facility]PE [facility] GROUPS AND ACTIVITIES. R- PT IS ALERT AND ORIENTED X4. MEMORY APPEARS TO BE INTACT. RESPS EASY AND EVEN ON ROOM AIR. MOOD APPEARS DEPRESSED AND ANXIOUS, PT WITH EPISODES OF TEARFULNESS THIS MORNING, PT VISIBLY ANXIOUS, EXPRESSING VARIOUS PARANOID DELUSIONS REGARDING BEING ARRESTED BY THE AUTHORITIES AND HAVING 18 WARRANTS OUT FOR HER ARREST. PT PREOCCUPIED THIS MORNING WITH HER BELIEF THAT HER NAME IS IN THE NEWSPAPER TODAY AND THAT SHE WAS ON THE NEWS FOR THESE WARRANTS. PT ALSO STATES SHE IS HEARING A MAN OVER THE INTERCOM SYSTEM IN HER ROOM TELLING HER THAT SHE IS "TALKING TRASH" AND THAT THEY ARE "COMING TO GET HER SOON". THIS NURSE AND 2ND RN HAVE SPENT EXTENDED 1:1 SESSIONS WITH PT ATTEMPTING TO PRESENT REALITY AND HELP PT DISTINGUISH REALITY FROM PARANOIA. PT ABLE TO DO SO IN SOME INSTANCES BUT REMAINS UPSET AND ANXIOUS, EMOTIONAL SUPPORT PROVIDED. ENCOURAGED PT TO ENGAGE IN DEEP BREATHING TO PROMOTE RELAXATION. PT ENCOURAGED TO ATTEND MORNING RELAXATION GROUP. PT CURRENTLY ENGAGED IN WORD SEARCH PUZZLE IN GROUP WITH PEERS. SOFT MUSIC PROVIDED BY ACTIVITIES THERAPIST TO SECONDARY HISTORY TEACHER IN RELAXATION. P- PLAN TO CONTINUE CURRENT TREATMENT, CONTINUE TO MONITOR MOOD AND BEHAVIORS, PROVIDE APPROPRIATE REORIENTATION, REDIRECTION, 1:1 AND EMOTIONAL SUPPORT NEEDED. CONTINUE ASSISTING PT IN DEVELOPING APPROPRIATE COPING SKILLS. ENCOURAGE MEDICATION COMPLIANCE WELL GROUP ATTENDANCE AND PARTICIPATION. P- PLAN TO CONTINUE CURRENT TREATMENT, CONTINUE TO MONITOR MOOD AND BEHAVIORS, PROVIDE APPROPRIATE REORIENTATION, REDIRECTION AND 1:1 NEEDED. CONTINUE TO ENCOURAGE MEDICATION COMPLIANCE WELL GROUP ATTENDANCE AND PARTICIPATION.
--- NOTE | 2019-02-05 11:36 | NUR ---
AM GROUP/ART AND MUSIC PT ATTENDED AND PARTICIPATED IN GROUP BY WORKING A WORD SEARCH AND A PUZZLE WITH NURSE. PT WILL BE ENCOURAGED TO ATTEND FURTHER GROUPS AND TO PARTICIPATE.
--- NOTE | 2019-02-05 12:41 | NUR ---
AND OTHER MALE FRIEND IN FOR PLEASANT VISIT AT THIS TIME.
--- NOTE | 2019-02-05 13:47 | NUR ---
THROUGHOUT THE MORNING AND AFTERNOON PT CONTINUES TO AN INCREASE IN PARANOID SYMPTOMS, IN THE MIDDLE OF VISITATION TIME WITH PT'S AND MALE FRIEND PT BECAME INCREASINGLY ANXIOUS AND RESTLESS, GETTING UP AND LEAVING VISITATION SEVERAL TIMES, COMING TO STAFF ASKING WHETHER PEOPLE WERE WHISPERING ABOUT HER. PT STATES "I HEAR YOU GUYS WHISPERING. I KNOW YOU SAID YOU KNOW THE TRUE STORY NOW, DON'T LIE TO ME, TELL ME THE TRUTH ABOUT WHATEVER I DID WRONG AND TELL ME WHEN THEY'RE COMING TO GET ME". VERY DIFFICULT TO REDIRECT AT THIS TIME. PT CONTINUES WITH INCREASED PARANOIA AND ANXIETY, PT VISIBLY UPSET, SHAKING AND TEARFUL. PT BECOMING IRRITABLE UPON REDIRECTION. ATTEMPTED SEVERAL NONPHARMALOGICAL COPING TECHNIQUES WITHOUT ANY POSITIVE EFFECT. PARANOIA AND ANXIETY CONTINUES TO ESCALATE. PRN GEODON 20MG IM GIVEN AT THIS TIME TO LEFT DELTOID WITHOUT DIFFICULTY. PT TOLERATED WELL AND EXPRESSED UNDERSTANDING OF MEDICATION. PT THANKED NURSE FOR INTERVENTIONS PROVIDED, WILL MONITOR FOR EFFECTIVENESS OF MEDICATION.
--- NOTE | 2019-02-05 14:45 | NUR ---
AND ON UNIT TO SEE PT AT THIS TIME.
--- NOTE | 2019-02-05 14:53 | NUR ---
FREDDYDON APPEARS TO HAVE BEEN EFFECTIVE IN CALMING PT, PT SITTING QUIETLY IN QUIET ROOM AT THIS TIME LOOKING OUT THE WINDOW AT THE RIVER. Q15 MIN MONITORING CONTINUES. PT STATES SHE IS WAITING FOR HER L D RN TO CALL.
--- NOTE | 2019-02-05 15:38 | NUR ---
PM GROUP/ART AND SOCIALIZATION PT CHOSE NOT TO ATTEND AFTERNOON GROUP THERAPY. PT WILL BE ENCOURAGED TO ATTEND FUTURE GROUP THERAPY SESSIONS
--- NOTE | 2019-02-05 18:18 | NUR ---
SHIFT CHART CHECK COMPLETED.
[2019-02-05 19:55] VITALS: BP 107/81
--- NOTE | 2019-02-05 23:05 | NUR ---
P-PARANOIA, RESTLESSNESS. PATIENT ALERT WITH CONFUSION. PATIENT WITH SHORT TERM AND MCC MEMORY DEFICITS. PATIENT WITH NO SUICIDAL OR HOMICIDAL IDEATIONS. PATIENT WITH NO HALLUCINATIONS. PATIENT WITH PARANOID DELUSIONS INTERMITTENTLY THROUGHOUT SHIFT. PATIENT ASKING NURSING STAFF "ARE PEOPLE TALKING ABOUT ME" AND PATIENT COMING UP TO THIS NURSE STATING "ARE YOU THE POLICE. I THOUGHT YOU WERE HERE TO COME AND GET ME" I-REDIRECTION WITH 1:1 THERAPEUTIC INTERVENTIONS AND PRESENT REALITY. EDUCATE AND ENCOURAGE MEDICATION COMPLIANCE. DISCUSS EPISODES OF PARANOIA AND ASSIST PATIENT WITH IDENTIFYING TRIGGERS FOR PARANOIA R-PATIENT MEDICATION COMPLIANT. PATIENT REFUSED NOURISHMENT AT HS. PATIENT REQUESTING MAAOLOX FOR COMPLIANT OF GI DISTRESS. MAALOX WITH EFFECTIVE RESULTS AT THIS TIME. REDIRECTION INEFFECTIVE FROM PARANOID EPISODES DUE TO PATIENT COGNITION AND PARANOIA INCREASING AFTER EACH ATTEMPT TO REDIRECT FROM PARANOIA EPISODES. PATIENT PROVIDED FLUIDS AND TOILETING SELF THROUGHOUT SHIFT. P-CONTINUE TO ENCOURAGE MEDICATION COMPLIANCE, CONTINUE TO ENCOURAGE REALITY PRESENTATION, CONTINUE TO ENCOUAGE GROUP THERAPY WHILE AWAKE
--- NOTE | 2019-02-06 05:14 | NUR ---
PT SLEPT GREATER THAN 8 HOURS THIS SHIFT. Q15 MINUTE SAFETY CHECKS MAINTAINED.
--- NOTE | 2019-02-06 05:18 | NUR ---
24 HR chart check completed.
[2019-02-06 07:23] VITALS: BP 115/76
--- NOTE | 2019-02-06 11:35 | NUR ---
AM GROUP/ART/GAMES PT ATTENDED AND PARTICIPATED DURING GROUP BY FOCUSING ON AN EASTER WORDSEARCH. PT EVENTUALLY QUIT WORDSEARCH AND SAT AND LISTENED TO MUSIC. PT DID NOT ATTEMPT TO LEAVE GROUP ONCE AND APPEARED RELAXED. PT DID NOT EXPRESS ANY PARANOID DELUSIONS AT THIS TIME AND WILL CONTINUE TO ATTEND AND PARTICIPATE IN FUTURE GROUP SESSIONS.
--- NOTE | 2019-02-06 13:33 | NUR ---
P: INCREASED PARANOIA, ISOLATIVE TO ROOM, PACING IN ROOM INTO BATHROOM WITH LIGHTS OFF. PATIENT STATED THAT SHE IS LISTENING TO THE AIR VENTS TO DROWN OUT THE VOICES. VOICED STATEMENT OF THOUGTHS OF THINKING SHE IS GOING TO [facility] AFTER DISCHARGE, THINKING OTHERS ARE TALKING ABOUT HER, FABULATING OTHERS CONVERSATIONS, TAKES BITS OF INFO AND TURNS IT INTO PERCUTORY DELUSIONS AGAINST HER, THAT SHE IS IN TROUBLE ABOUT SOMETHING THAT DID NOT HAPPEN. ANXIOUS AT TIMES THROUGHOUT THE DAY. PATIENT PREOCCUPIED AND NERVOUS ABOUT GOING HOME. I: ONE ON ONE ON REALITY AND REDIRECTION; ENCOURAGEMENT PATIENT TO ATTEND GROUP SESSIONS. EMOTIONAL SUPPORT PROVIDED NEEDED R: PATIENT IS ALERT AND ORIENT TO PERSON, PLACE AND SITUATION; ABLE TO VOICE NEEDS. MEDICATION COMPLIANT WITH EDUCATION PROVIDED. Q 15 MINUTE SAFETY CHECKS MAINTAINED. MOOD IS ANXIOUS AND PARANOID. PATIENT DENIES ANY HI/SI OR PAIN. HAVING AUDITORY HALLUCINATIONS AND PERCUTORY DELUSIONS. INDEPENDENT WITH ACTIVITIES OF DAILY LIVING, CONTINENT OF BOWEL AND BLADDER. SET UP FOR MEALS, INTAKES VARY WITH MUCH ENCOURAGEMENT TO EAT AND DRINK. PATIENT INTERACTIVE WITH NURSING STAFF ONLY AND ATTENDS/PARTICIPATES IN GROUP SESSION. PATIENT VISITED WITH SPOUSE AND FRIEND TODAY; IMPROVED MOOD NOTED. P: CONTINUE TO MONITOR MOOOD, HALLUCINATIONS/DELUSIONS, MEDICATION COMPLIANCE. PROIVDE ONE ON ONE, REALITY REORIENTATAION/REDIRECTION, ENCOURAGE GROUP PARTICIPATION. ENCOURAGE PATIENT TO COME OUT OF ROOM AND SOCAILIZE WITH STAFF AND OTHER PATIENTS.
--- NOTE | 2019-02-06 15:24 | NUR ---
PM GROUP/GAMES PT ATTENDED FIRST PART OF GROUP AND PARTICIPATED, UNTIL PT ABRUPTLY GOT UP AND LEFT ACTIVITY'S TO NOT RETURN. PT DID NOT EXPRESS ANY PARANOID DELUSIONS PRIOR TO LEAVING GROUP. PT WILL CONTINUE TO BE ENCOURAGED TO ATTEND AND PARTICIPATE IN FUTURE GROUP SESSIONS.
--- NOTE | 2019-02-06 16:06 | NUR ---
Shift chart check completed.
--- NOTE | 2019-02-06 19:42 | NUR ---
P--PARANOIA DUE TO OVERHEARING SECURITY TELL US WHO WOULD BE ON DUTY TONIGHT AND WHO WAS LEAVING. CLIENT THOUGHT THEY COMING TO TAKE HER TO PRISON TONIGHT I--EMOTIONAL SUPPORT PROVIDED. DISCUSSED REALITY OF CONVERSATION SHE HEARD. ENCOURAGED HER TO STOP INTERNALIZING THINGS SHE HEARS WITHOUT COMING TO STAFF FOR CLARIFICATION. REINFORCED HER SAFETY HERE AND WHEN SHE GOES HOME. AGAIN REMINDED HER WE HAVE NO KNOWLEDGE OF ANY POLICE OR FBI WAITING FOR HER R--I JUST HEARD HIM SAY THT THEY WILL BE GONE TONIGHT AND I WAS SURE HE MEANT ME AND THE POLICE WERE COMING P--CONTINUE TO PRESENT REALITY, PROVIDE EMOTIONAL SUPPORT AND MONITOR Q 15 MINUTES FOR SAFETY
[2019-02-06 19:59] VITALS: BP 104/63
--- NOTE | 2019-02-06 20:20 | NUR ---
24 HR chart check completed.
--- NOTE | 2019-02-07 05:21 | NUR ---
PT HAS SLEPT PAST 2200 WITH 1 BRIEF AWAKENING TO GO TO THE BATHROOM.
[2019-02-07 06:52] LABS: CREATININE 1.25 mg/dL (0.55-1.02); POTASSIUM 3.9 mmol/L (3.5-5.1)
[2019-02-07 07:21] VITALS: BP 117/59
--- NOTE | 2019-02-07 08:53 | NUR ---
PATIENT RECEIVED INVEGA SUSTENNA 156MG IM IN RIGHT DELTOID AND TOLERATED WELL.
--- NOTE | 2019-02-07 10:16 | NUR ---
P: INCREASED PARANIOA, AUDITORY HALLUCINATIONS, PERSECUTORY DELUSIONS. FEARFUL THAT ON DISCHARGE SHE WILL BE TAKEN TO CARE HOME. PATIENT OVER HEARS CONVSERSATIONS, SOUNDS AND TV, FABULATES THAT OTHERS DON'T LIKE HER AND ARE TALKING ABOUT HER. MOOD IS ANXIOUS, TEARFUL, LABILE AND IRRITABLE. ISOLATIVE TO ROOM, UNLESS TALKING WITH NURSE TO PRESENT REALITY. PREOCCUPIED OF DISCHARGE COMING SOON AND FEELS SHE WILL NOT TO DISCHARGED. I: ONE ON ONE, REDIRECTION/REORIENTATION TO REALITY, IN QUIET ROOM, ASSISTING PATIENT IN IDENTIFYING TRIGGER AND ATTEMPTING HELP DEVELOPE COPING SKILLS WITH FEELING ANXIOUS OR HAVING NEGATIVE THOUGHTS. R: PATIENT IS ALERT AND ORIENT TO PERSON, PLACE, TIME AND SITUATION; ABLE TO VOICE NEEDS. DENIES ANY HI/SI OR PAIN. CONTINUES TO HAVE HALLUCINATIONS AND FIXED DELUSIONS. MEDICATION COMPLIANT WITH EDUCATION PROVIDED. Q 15 MINUTE SAFETY CHECKS MAINTAINED. INDEPENDENT WITH ACTIVITIES OF DAILY LIVING, CONTINENT OF BOWEL AND BLADDER. SET UP FOR MEALS, ENCOURAGED FLUID INTAKES. AMBULATORY WITH STEADY GAIT. P: CONTINUE TO PROVIDE ONE ON ONE SUPPORT, PRESENTING REALITY AND REDIRECTION NEEDED. ASSIST PATIENT WITH COPING SKILLS.
--- NOTE | 2019-02-07 11:05 | NUR ---
JUAN SANTOS ON UNIT TO ASSESS PT, UPDATE PROVIDED.
--- NOTE | 2019-02-07 13:41 | NUR ---
RECEIVED REPORT ON PT AT THIS TIME, IVANE INTRODUCTION SPOKE WITH HER IN REFERENCE TO HER THOUGHT PROCESS. REENFORCING THAT THE SECURITY IS NOT HERE TO INVESTIGATER HER, THAT THE "LADY WITH THE WHITE COAT LAST NIGHT" (NURSING NON DESTRUCTIVE TESTER) WAS NOT AN RESIDENTIAL COORDINATOR TO SPY ON HER. PT TRIES TO KEEP THE DOOR SHUT BECAUSE SHE FEELS THAT IT HELP BLOCKS THE VOICES SHE HEARS. DURING THIS INTERACTION A NOISE HAPPENED OUT SIDE THE DOOR, AND SHE DISPLAYED PARANOIA ABOUT WHAT CAUSED IT AND WHAT THE NOISE MAY HAVE BEEN. I THEN TOLD HER THAT IS WHY THE DOOR MUST STAY OPEN SO THAT SHE CAN LOOK OUT. TO REENFORCE THIS I ASKED HER WHAT SHE BELIEVED THE NOISE WAS "SOMEONE IS LISTENING TO OUR CONVERSATION, THEY WANT TO GET ME FOR SHOPLIFTING" I OPENED DOOR AND REQUESTED HOUSE KEEPER COME BACK UP THE HALLWAY TO PROVE THAT IT WAS NOT WHAT SHE BELIEVED. ENCOURAGED PT TO VOICE TO HER SELF OUT LOUD " NOONE IS LISTENING TO ME, I AM NOT IN TROUBLE WITH THE LAW" TO HELP HER BREAK THROUGH THE VOICES, PT DID PARTICIPATE. REFUSED TO COME TO QUIET ROOM AT THIS TIME WHEN OFFERED ACTIVITIES FOR HER TO DO TO DISTRACT HER. WILL CONTINUE WITH 15 MIN CHECKS AND THERAPEUTIC 1:1
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
[2019-02-07 20:00] VITALS: BP 110/72
--- NOTE | 2019-02-07 20:35 | NUR ---
24 HR chart check completed.
--- NOTE | 2019-02-07 21:02 | NUR ---
P-PARANOID/PERSECUTORY DELUSIONS, AUDITORY HALLUCINATIONS, ISOLATIVE TO ROOM I-PROVIDE 1:1 FOR VENTILATION OF FEELINGS & EMOTIONAL SUPPORT. ASSESS ORIENTATION. PRESENT REALITY. ADMINISTER MEDICATIONS. MONITOR SLEEP R-PT IS ALERT & ORIENTED X 4. MILDLY ANXIOUS & REQUIRES EDIRECTION & REASSURANCE. CONTINUES TO VOICE PARANOID & PERSECUTORY DELUSIONS & IS UNRECEPTIVE TO PRESENTATION OF REALITY. REMAINS ISOLATIVE TO HER ROOM. ADMITS TO AUDITORY HALLUCINATIONS & STATED SHE IS STAYING IN HER ROOM "BECAUSE PEOPLE ARE AFRAID OF ME & TALKING ABOUT ME". COMPLIANT TAKING HS MEDICATIONS. ATE HS SNACK. P-CONTINUE TO MONITOR & PROVIDE ASSISTANCE & EMOTIONAL SUPPORT NEEDED.
--- NOTE | 2019-02-08 05:39 | NUR ---
PT HAS SLEPT QUIETLY PAST 2029 WITH A BRIEF AWAKENING TO GO TO THE BATHROOM
[2019-02-08 07:41] VITALS: BP 108/65
--- NOTE | 2019-02-08 08:33 | NUR ---
SUJATA SANTOS ON UNIT TO ASSESS PT, UPDATE PROVIDED. VERBAL ORDERS RECEIVED TO HAVE SUPERVISED PHONE CALLS AND VISITS.
--- NOTE | 2019-02-08 10:51 | NUR ---
PT PRESENTED WRITTEN REQUEST FOR DISCHARGE, UPDATED TIM DANIELLE ESQUEDA ON PT. NO FURTHER ORDERS AT THIS TIME.
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
--- NOTE | 2019-02-08 11:37 | NUR ---
AM GROUP PT WAS ENCOURAGED TO ATTEND MORNING GROUP THERAPY AND LISTENED TO MUSIC WITH EARBUDS FOR A FEW MINUTES BUT ABRUPTLY GOT UP AND LEFT THE ROOM. PT DID NOT RETURN
--- NOTE | 2019-02-08 12:06 | NUR ---
PRN ATIVAN EFFECTIVE. PATEINT RESTING IN BED WITH EYES CLOSED, NO DISTRESS OBSERVED. PATIENT STATING "FEELING BETTER".
--- NOTE | 2019-02-08 15:25 | NUR ---
Met with patient in her room. Patient voiced concern about her legal history and if she has any active warrants for her arrest. Reassured patient that there are no pending warrants for her and that there are no pending legal issues. Discussed DPOA-HC and guardianship. Educated patient about each. Explored with patient possible options for a power of real estate attorney. Patient is going to discuss this with her close friend. Advised patient that a DPOA-HC can be completed prior to her discharge.
--- NOTE | 2019-02-08 15:59 | NUR ---
Shift chart check completed.
--- NOTE | 2019-02-08 16:05 | NUR ---
Treatment Plan meeting with Melinda PANEL INSTRUMENT REPAIRER, RN, AT, SW and Federal Appellate Clerk. Plan for discharge . Pt. to return home with Spouse.
[2019-02-08 20:00] VITALS: BP 107/70
--- NOTE | 2019-02-08 20:44 | NUR ---
24 HR chart check completed.
--- NOTE | 2019-02-08 23:05 | NUR ---
P-PARANOID/PERSECUTORY DELUSIONS, ISOLATIVE TO ROOM I-PROVIDE 1:1 FOR VENTILATION OF FEELINGS & EMOTIONAL SUPPORT. ASSESS ORIENTATION. PRESENT REALITY. ADMINISTER MEDICATIONS. MONITOR SLEEP R-PT IS ALERT & ORIENTED X 4. MILDLY ANXIOUS & REQUIRESR EDIRECTION & REASSURANCE. CONTINUES TO VOICE PARANOID & PERSECUTORY DELUSIONS & IS UNRECEPTIVE TO PRESENTATION OF REALITY. REMAINS ISOLATIVE TO HER ROOM. DENIES AUDITORY HALLUCINATIONS & STATED THAT SHE IS JUST REALLY TIRED THIS EVENING. COMPLIANT TAKING HS MEDICATIONS. ATE HS SNACK. P-CONTINUE TO MONITOR & PROVIDE ASSISTANCE & EMOTIONAL SUPPORT NEEDED.
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
--- NOTE | 2019-02-09 05:31 | NUR ---
PT HAS SLEPT SINCE 2044 WITH 2 BRIEF AWAKENINGS. MAALOX EFFECTIVE PT HAS HAD NO FURTHER COMPLAINTS.
[2019-02-09 07:16] VITALS: BP 112/61
--- NOTE | 2019-02-09 08:52 | NUR ---
SPOKE WITH PT REGARDING DISACHARGE PLAN FOR THURS. PT STATED "YOU WILL DISCHARGE ME HOME ON THURS THEN AND NOT TO THE POLICE?" ADVISED PT THAT SHE WILL BE DISCHARGED TO HOME ON THURS.
--- NOTE | 2019-02-09 08:56 | NUR ---
Treatment Plan meeting with Rosa TRINIDAD, RN, SW and Nozzle Worker. Plan for discharge . Pt. to return home with her with Follow Up Appointments arranged.
--- NOTE | 2019-02-09 10:57 | NUR ---
ON UNIT TO ASSESS PT, UPDATE PROVIDED.
--- NOTE | 2019-02-09 13:59 | NUR ---
P: AUDITORY HALLUCINATIONS- PATIENT BELIEVES OTHERS ARE TALKING ABOUT HER AND STAFF ARE MAKING PHONE CALLS TO THE POLICE AND FUGITIVE DETECTIVE FOR WHEN SHE GETS DISCHARGED. ISOLATIVE TO ROOM. I: ONE ON ONE, REORIENTATION TO REALITY, MUSIC THERAPY. R: PATIENT IS ALERT TO PERSON, PLACE, TIME AND SIUTAITON WITH DELUSIONS. MOOD IS ANXIOUS AT TIMES, MUCH IMPROVEMENT NOTED TODAY. PATIENT CONTINUES TO BE PARANIOD WITH PERCUTORY DELUSIONS. MEDICATION COMPLAINT WITH EDUCATION PROVIDED. Q 15 MINUTE SAFETY CHECKS MAINTAINED. INDEPENDENT WITH ACTIVITIES OF DAILY LIVING, CONTINENT OF BOWEL AND BLADDEER. SET UP FOR MEALS, INTAKES ARE GOOD WITH ADEQUATE FLUIDS. P: CONTINUE TO MONITOR HALLUCINATIONS, DELUSIONS, MEDICATION COMPLIANCE; PROVIDE ONE ON ONE, REDIRECTION/ORIENTATION TO REALITY NEEDED.
--- NOTE | 2019-02-09 14:50 | NUR ---
Spoke with patient concerning discharge Plans. Pt. will discharge . [facility] has been set up by family with cherry picker operator time 10:40 a.m. Will arrange with staff and Physicians for discharge.
--- NOTE | 2019-02-09 15:27 | NUR ---
Met with patient individually today. Patient stated that she believes she is ready to return home. However, she admitted to feeling fearful that she will believe the police are coming for her once she is in her own home. Discussed this further. Explored ideas that could possibly reassure patient that she was not in any trouble with the police/legal system. After discussion, provided patient with a printout from the [facility] Courts, which shows that there are no pending charges or court hearings under patient's name. Patient shared further about her fears. Discussed how debilitating fear can be in one's life. Continued to explore ideas with patient that could possibly lessen patient's fears. Patient voiced appreciation. Patient kept the printout so that she could refer to it when/if the fear of being wanted by the police returned.
--- NOTE | 2019-02-09 19:50 | NUR ---
24 HR chart check completed.
[2019-02-09 20:00] VITALS: BP 111/54
--- NOTE | 2019-02-09 22:10 | NUR ---
P-PARANOID/PERSECUTORY DELUSIONS, ISOLATIVE TO ROOM I-PROVIDE 1:1 FOR VENTILATION OF FEELINGS & EMOTIONAL SUPPORT. ASSESS ORIENTATION. PRESENT REALITY. ADMINISTER MEDICATIONS. MONITOR SLEEP R-PT IS ALERT & ORIENTED X 4. MILDLY ANXIOUS & REQUIRES REDIRECTION & REASSURANCE. CONTINUES TO VOICE PARANOID & PERSECUTORY DELUSIONS WITH A NOTED DECREASE. DID COME TO THE DINING ROOM & ATE HER SNACK, OTHERWISE REMAINED ISOLATIVE TO HER ROOM. CONTINUES TO C/O AUDITORY HALLUCINATIONS STATING PEOPLE ARE TALKING ABOUT HER. COMPLIANT TAKING HS MEDICATIONS. P-CONTINUE TO MONITOR & PROVIDE ASSISTANCE & EMOTIONAL SUPPORT NEEDED.
--- NOTE | 2019-02-10 05:39 | NUR ---
PT HAS SLEPT PAST 2129 WITH A BRIEF AWAKENING TO GO TO THE BATHROOM INDEPENDENTLY .
[2019-02-10 07:16] VITALS: BP 118/86
--- NOTE | 2019-02-10 08:15 | NUR ---
Treatment Plan meeting with Rosa TRINIDAD, RN, SW and Cutting Machine Tender Decorative. Plan for discharge . Pt. to return home with her . Follow Ups have been arranged.
--- NOTE | 2019-02-10 10:40 | NUR ---
DR. HARRIS ON FLOOR TO ASSESS PT. MADE AWARE OF PT BEING DISCHARGED HOME TOMORROW MORNING.
--- NOTE | 2019-02-10 12:16 | NUR ---
P: PARANOID THOUGHT PROCESS. BELIEVES THAT THE POLICE AND REFUGE MANAGER WERE OUT TO GET HER. ISOLATES SELF TO ROOM. I: 1:1 INTERACTION WITH EMOTIONAL SUPPORT PROVIDE. THOUGHT STOPPING TEACHING COMPLETED, PT TAUGHT TO TELL HERSELF THAT THESE THOUGHTS ARE NOT TRUE AND THE POLICE ARE NOT AFTER HER. RETURN DEMONSTRATION DONE. ENCOURAGE TO PARTICIPATE IN GROUP ACTIVITIES FOR SOCIALIZATION AND EMOTIONAL SUPPORT. R: PATIENT WAS EASILY REDIRECTED AND USED THE THOUGHT STOPPING TECHNIQUES GIVEN TO HER. PT COMES OUT WHEN ENCOURAGED TO INTERACT AND PARTICIPATE IN GROUP ACTIVITIES. IS INTERACTING AND PARTICIPATING. PT STATES THAT SHE KNOWS THAT THAT THEY ARE JUST PARANOID THINKING. REDIRECTED TO REALITY EASILY. MEDICATION COMPLIANT WITH EDUCATION PROVIDED. EATING AND DRINKING ADEQUATELY. P: CONTINUE TO REDIRECT AND PRESENT WITH REALITY. ENCOURAGE TO USE THOUGHT STOPPING TEACHING WHEN PARANOID THOUGHTS ARE PRESENT. ENCOURAGE TO ATTEND GROUP ACTIVITIES. ENCOURAGE TO COME OUT OF ROOM OFTEN AND INTERACT WITH STAFF AND PEERS. PROVIDE MEDICATIONS ON TIME WITH EDUCATION PRESCRIBED BY PHYSCIAN. Q15 MINUTE CHECKS MAINTAINED FOR SAFETY.
--- NOTE | 2019-02-10 12:45 | NUR ---
Shift chart check completed.
--- NOTE | 2019-02-10 13:21 | NUR ---
Met with patient this AM. Patiet was smiling and stated that she is getting discharged tomorrow. Patient voiced optimism about returning home. She did not voice any paranoia about being in trouble with the law or police.
[2019-02-10 20:00] VITALS: BP 123/63
--- NOTE | 2019-02-10 22:01 | NUR ---
BRENNA STATES SHE IS READY FOR DISCHARGE TOMORROW. STATES SHE IS EXCITED AND NERVOUS BUT NOT SURE WHAT SHE IS NERVOUS ABOUT. REMAINS PARANOID THAT PEOPLE ARE TALKING ABOUT HER. REASSURANCE PROVIDED. OFFERED 1:1 ANYTIME SHE FEELS SHE NEEDS TO TALK. VERBALIZED UNDERSTANDING.
--- NOTE | 2019-02-11 01:35 | NUR ---
CAME TO NURSING STATION TO SEE IF SHE WAS IN TROUBLE. HEARD STAFF MOVING A PATIENT TO ANOTHER ROOM AND SHE THOUGHT SHE WAS IN TROUBLE. EMOTIONAL SUPPORT AND REASSURANCE PROVIDED.
--- NOTE | 2019-02-11 02:30 | NUR ---
24 HR chart check completed.
--- NOTE | 2019-02-11 04:52 | NUR ---
CLIENT CAME TO DESK FOR THE 3RD TIME THINKING SOMEONE HERE TO GET HER. THIS TIME SHE THOUGHT SHE HEARD THEM SAY SHE IS BEING CHARGED WITH RAPE. TOOK CLIENT INTO QUIET ROOM AND HAD LONG DISCUSSION ABOUT HER THOUGHT. TOLD HER I DIDN'T THINK SHE WAS READY TO BE DISCHARGED, THAT SHE IS STILL TOO PARANOID. CLIENT DEFINED PARANOIA BEING AFRAID AND HAVING OTHERS BE MAD AT YOU FOR IT. GAVE CLIENT THE DEFININTION OF PARANOIA. REINFORCED THAT THE POLICE, FBI NO ONE WAS OUT TO ARREST HER. STATES SHE IS A LITTLE AFRAID TO GO HOME BUT HER IS ILL AND HE NEEDS HER. STATES SHE WILL TAKE THE CART BUS TO HER APPOINTMENTS. ASKED HER PRO OF GOING HOME AND SHE REPLIED QUIETER THAN HER, AND CON MAY HAVE TO COME BACK. INFORMED HER THAT SHE DOESN'T HAVE TO MAKE UP THINGS IF SHE IS SCARED. JUST TO TELL US THAT SHE IS SCARED AND DON'TKNOW WHY. WILL CONTINUE TO BE AVAILABLE TO TALK AND SUPPORT
--- NOTE | 2019-02-11 05:31 | NUR ---
BROKEN SLEEP PAST 2200PM
--- NOTE | 2019-02-11 06:30 | NUR ---
IN SHOWER AT THIS TIME.
[2019-02-11] MEDS ORDERED: PALIPERIDONE ER6 MG PO (07:02)
[2019-02-11] MEDS ORDERED: LORAZEPAM1 MG PO (07:02)
[2019-02-11] MEDS ORDERED: INVEGA SUSTENN156 MG IM (07:02)
[2019-02-11] MEDS ORDERED: ZIPRASIDONE HCL80 M1 PO (07:02)
[2019-02-11] MEDS ORDERED: VITAMIN D5000 UNI1 PO (07:02)
[2019-02-11] MEDS ORDERED: FLUVOXAMINE50 MG PO ×3 (07:02→07:27)
[2019-02-11 08:00] VITALS: BP 122/74
[2019-02-11 08:01] VITALS: BP 122/74
--- NOTE | 2019-02-11 08:15 | NUR ---
Treatment Plan meeting with Rosa TRINIDAD, RN, SW and Certified Tower Climber. Plan for discharge today. Pt. to return home with her . Follow Up appointments have been scheduled. [facility] transportation to transport with picker box operator time 10:40 a.m.
--- NOTE | 2019-02-11 08:49 | NUR ---
CALL PLACED TO HOSPITALIST CELL NUMBER 2 FOR , SPOKE TO , MADE AWARE OF DISHCARGE FOR TODAY AT 10:30.
--- NOTE | 2019-02-11 09:08 | NUR ---
Call Placed to Keke Patel Colorer with [facility] to notify of discharge today. Left Voice Message and return number.
--- NOTE | 2019-02-11 10:35 | NUR ---
DR HARRIS ON UNIT TO SEE PATIENT
--- NOTE | 2019-02-11 10:41 | NUR ---
PATIENT DISCHARGED FROM UNIT. PATIENT VITAL SIGNS STABLE AT TIME OF DISCHARGE. DISCHARGE INSTRUCTIONS PROVIDED. PATIENT BELONGING RETURNED. PATIENT TRANSFERRED OFF UNIT IN WHEELCHAIR AND WITH ASSISTANCE OF ONE NURSING STAFF AND ONE REFINERY OPERATOR COKING PRESENT. ADDITIONAL MEDICATIONS RETURNED TO PHARMACY
--- NOTE | 2019-02-11 12:12 | NUR ---
PATIENT DISCHARGED FROM UNIT. PATIENT LEFT UNIT WITH BELONGINGS. PATIENT STABLE AT TIME OF DISCHARGE. PATIENT MEDICATIONS RETURNED TO PHARMACY AT DISCHARGE
--- NOTE | 2019-02-11 13:45 | NUR ---
Prior to Pt's discharge, met with Pt individually. Pt did voice paranoia about being arrested when she was discharged. Reassured Pt that this was not the truth. Discussed in detail Pt's concerns. Pt is able to recognize and voice that she has dealt with fear and paranoia of police for over 20 years. Asked Pt if she felt she was ready to discharge. Pt confirmed that she wanted to return home and that she felt she would feel more secure there with her . [facility]. Pt's caser shoe parts, Keke, from [facility] was also notified of pt's discharge.
[2019-03-01] MEDS ORDERED: DOXYCYCLINE MO100 M1 PO (09:46)
[2019-03-01] MEDS ORDERED: LORAZEPAM1 MG PO (09:46)
== END 2019-02-11 12:12 | disposition home or self-care (01) | DRG 885 ==
LOC: ED 18:19 → 3N 01-30 00:10
PROVIDERS: Internal Medicine; Nurse Practitioner; ADMIT Psychiatry & Neurology Psychiatry
DX: F33.3 Major depressive disorder, recurrent, severe with psychotic symptoms (principal); E87.6 Hypokalemia; I10 Essential (primary) hypertension; E55.9 Vitamin D deficiency, unspecified; Z79.899 Other long term (current) drug therapy

== ENCOUNTER 2019-02-14 18:46 | Inpatient (IN) | payer MEDICARE, MEDICAID ==
[~2019-02-14] VITALS: Ht 149.8 cm; Wt 85.7 kg
--- NOTE | ~2019-02-14 | PR ---
[place], [place] PROGRESS NOTE NAME: MARYLU RIVAS UNIT #: [id number] ROOM: 314 DOCTOR: STACI MANN DO BIRTHDATE: [birth year] DOS: 02/16/2019 PSYCHIATRIC PROGRESS NOTE CHIEF COMPLAINT: "Not any better, talk to the nurses. Nurses ganged up on me." SUMMARY OF VISIT: The patient interviewed while sitting in the dining chen. Patient voiced "don't want people yelling at me, three nurses ganged up on me." "Did they say I was argumentative last night." We informed the patient that nursing did not voice any of that information. The patient then said "why don't you call people who know me." Again, we re-informed the patient that we have been in contact with them and that there is no police or FBI after her. The patient responded "not just that they want me, but because I hear things, I feel like a 1-year-old here because I didn't feel well this morning, but they won't let me lie down in my room." We informed the patient that she needs to encourage to be participating in activities and that her anxiety does appear to be getting worse during the day. The patient does agree with this; however, she said the nursing staff "won't let her have the medications to help her." The patient was informed that we will limit as much of the p.r.n. medications as possible because we need to determine whether other medications are causing her any side effects. Per nursing staff, the patient continues to be paranoid about the police and FBI after her in regards of something she stole 20 years ago. The patient was tearful and restless throughout the day. She was unable to be redirected after multiple attempts by multiple staff members. The patient also had paranoid thinking that staff and patients were talking about her. The patient was reinforced not to be allowed to isolate herself in her room and she became irritated about that. Per staff, the patient went to their desk multiple times requesting Ativan for sleep and kept going down the halls, peering into other residents' rooms. Patient was not given any doses of Ativan yesterday. Per staff, the patient this morning, went to the desk again and asked why they are so mean and do they plan to do something to her at 8:00 a.m. Stated if the nursing was nice, she could call her and could go back to bed. The patient again was reinforced about the hours in which she could make phone calls and that she cannot continue to try and isolate herself due to her paranoia increasing. Patient continued to think that staff were mean. Patient's did communicate with the nursing staff the other day that patient after she was discharged last time, she appeared to be searching for oral medications and benzos at her home. He also said that she got paranoid with regards to the police beginning in June of last [place] Nursing staff noted that when the patient was talking to her on the phone, he was somewhat encouraging the patient's paranoia in regards to the police. MENTAL STATUS EXAMINATION: She is alert and oriented. Mood does seem to be very distraught and paranoid. She does appear with some anxious overtones and is grossly delusional; however, she does exhibit some affect that is a little bit flat. Memory is for the most part intact. PLAN: Increase Clozaril to 25 mg t.i.d. and 50 mg at bedtime. We will have [place], [place] PROGRESS NOTE NAME: MARYLU RIVAS UNIT #: [id number] ROOM: [facility] DOCTOR: STACI MANN DO BIRTHDATE: [birth year] orthostatic blood pressure checks every shift. Discontinue clonidine; blood pressures have been within reasonable range. Discontinue the Ativan p.r.n. doses. We will start Vistaril 50 mg p.o. at bedtime p.r.n. We will have the patient limited for about 5 calls a day that will be monitored by the nursing staff. We will continue to engage in individual and stallworth milieu activity with plan to return to the least restrictive environment once psychiatrically stable. Staci Mann DO HAYLEY CABRAL MD CM:PNTRANS [id number] STACI MANN DO 02/17/19 0044 interface
--- NOTE | ~2019-02-14 | PR ---
[place], [place] PROGRESS NOTE NAME: MARYLU RIVAS UNIT #: [id number] ROOM: 314 DOCTOR: MALCOLM COOLEY CNP BIRTHDATE: [birth year] DOS: 02/20/2019 CHIEF COMPLAINT: "I am very shaky." SUMMARY OF VISIT: The patient was interviewed as she sat in the dining room, participating in activities. The patient engaged readily in conversation with me; however, she seems to be very anxious and distracted. She complains that she feels shaky inside and that her hands are shaking and that her feet are shaking. Staff reports that the patient seems to be very antsy at times and it seems to start to increase in the afternoon. The patient with increased paranoia perseverating on the fact that she thinks other people are talking about her. MENTAL STATUS EXAMINATION: The patient was alert and oriented to person, place and time. She was pleasant, but unable to focus on our conversation. No overt benjie or hypomania. No auditory or visual hallucinations noted. No delusions noted. Paranoia is exhibited. Her mood appears to be somewhat anxious and her affect is congruent with mood. PLAN: I will start benztropine 0.5 mg twice a day for EPS symptoms. Clozaril was just increased to 100 mg twice a day and 200 at bedtime, so we will continue to monitor for effectiveness of this. We will continue to administer p.r.n. Vistaril as needed for anxiety, agitation. Continue to encourage the patient to engage in stallworth and milieu activity. Continue to encourage the patient to work on coping skills. Continue fall and safety precautions. Plan is to return the patient to the least restrictive environment when she is considered psychiatrically stable. Malcolm Cooley CNP CM:PNTRANS [phone] [id number] MALCOLM COOLEY CNP 02/20/191807 interface
--- NOTE | ~2019-02-14 | PN ---
[place], [place] PROGRESS NOTE NAME: MARYLU RIVAS UNIT #: [id number] ROOM: 314 DOCTOR: HAYLEY CABRAL MD BIRTHDATE: [birth year] DATE: 02/17/19 ADDENDUM: Resident note reviewed. Agree with observations, recommendations, and overall treatment plan. HAYLEY CABRAL MD CM:PNTRANS [id number] HAYLEY CABRAL MD 03/22/19 1045 HOMER ALMARAZ MIS.LLR
--- NOTE | ~2019-02-14 | PR ---
[place], [place] PROGRESS NOTE NAME: MARYLU RIVAS UNIT #: [id number] ROOM: 314 DOCTOR: HAYLEY CABRAL MD BIRTHDATE: [birth year] DOS: 02/18/2019 INTERVAL NOTE CHIEF COMPLAINT: "Oh, my stomach is upset. I do have GERD, though." SUMMARY OF THE VISIT: The patient was interviewed in her room. She was mainly fixated on her acid reflux and at no point in time during my conversation with her that she complained of having any paranoia, however, later this morning as I was dictating notes, she approached the nurses' station repeatedly, complaining that people are talking about her and feeling very uncomfortable. She became easily agitated with staff, but did eventually redirect. MENTAL STATUS EXAMINATION: When I evaluated her, she was bright and pleasant, somewhat anxious, but overall trending toward improvement. What I did see and witness when she interacted with staff; however, was extreme paranoia, extreme delusions and anxiety. PLAN: At this point will be to increase the Clozaril from 50 mg q.i.d., which is a total dose of 200 mg a day to 100 mg 3 times a day, increasing her to 300 mg a day. The patient did report to me that she was taking Prilosec at home. I will go ahead and start a small dose of that and defer then to the hospitalist for any further management. HAYLEY CABRAL MD CM:PNTRANS [id number] HAYLEY CABRAL MD 02/18/19 1556 interface
--- NOTE | ~2019-02-14 | WRIGHTHP ---
[place], [place] PATIENT HISTORY AND PHYSICAL EXAM NAME: MARYLU RIVAS UNIT #: [id number] ROOM: 314 DOCTOR: HAYLEY CABRAL MD BIRTHDATE: [birth year] DOS: 02/15/2019 INITIAL PSYCHIATRIC EVALUATION CHIEF COMPLAINT: "I think I rushed myself out of the hospital". HISTORY OF PRESENT ILLNESS: This is a 53-year-old white female readmitted to the [facility] after being discharged on . She represented to the Emergency Room stating that she was feeling very much paranoid and feeling that there are messages coming through the TV telling her that the police are outside of her home ready to arrest her. She is very paranoid, in general, which has been the common theme through her symptoms. The patient reports she is not sleeping or eating well nor has she been attending to her ADLs because she is so distraught that she has done something wrong and the police or FBI are out to get her. She is readmitted now to restabilize on medication to engage in individual and stallworth milieu activity and to determine the least restrictive environment to which she could return. PAST MEDICAL HISTORY: Remarkable for hypertension, vitamin D deficiency, and schizoaffective disorder. Psychiatrically, the patient has had multiple psychiatric admissions, especially worse in the last year. SOCIAL HISTORY: She does not smoke cigarettes. She does not drink alcohol nor does she use illicit drugs. STRENGTHS: Good verbal skills, ambulatory, and supportive family. WEAKNESSES: Chronic severe mental health issues and poor coping skills. MENTAL STATUS: She is alert and oriented. Mood does seem to be rather distraught and she is very perseverative over this paranoia. She is very anxious and is grossly delusional. Memory for the most part is intact. DIAGNOSIS: Schizoaffective disorder. PLAN: Given the fact that the current psychotropic regimen has been ineffective at curbing the psychosis, I will make the following changes: I will discontinue her Geodon in lieu of Clozaril 25 mg in the morning and 50 mg at bedtime to continue to be augmented by Invega Sustenna. I will increase her Luvox from 100 mg at bedtime to 50 mg in the morning and 150 mg at nighttime to see if this will also decrease her obsessional anxiety regarding being sought after by police and FBI. We will engage her in individual and stallworth milieu activity, returning then to the least restrictive environment when psychiatrically stable. [place], [place] PATIENT HISTORY AND PHYSICAL EXAM NAME: MARYLU RIVAS UNIT #: [id number] ROOM: [facility] DOCTOR: HAYLEY CABRAL MD BIRTHDATE: [birth year] HAYLEY CABRAL MD CM:HISPHYS:PATIENT HISTORY AND PHYSICAL EXAMINATION HAYLEY CABRAL MD 02/15/19 0948 interface
--- NOTE | ~2019-02-14 | PN ---
[place], [place] PROGRESS NOTE NAME: MARYLU RIVAS UNIT #: [id number] ROOM: 314 DOCTOR: HAYLEY CABRAL MD BIRTHDATE: [birth year] DATE: 02/16/19 ADDENDUM: Resident note reviewed. Agree with observations, recommendations, and overall treatment plan. HAYLEY CABRAL MD CM:PNTRANS [id number] HAYLEY CABRAL MD 03/22/19 1045 HOMER ALMARAZ MIS.LLR
--- NOTE | ~2019-02-14 | EKG ---
[place], [place] ELECTROCARDIOGRAM REPORT NAME: MARYLU RIVAS UNIT #: [id number] ROOM: 314 DOCTOR: ANNE-MARIE DRAFT REPORT BIRTHDATE: [birth year] [facility] Test Date: 2019-02-23 Test Time: 10:55:28 Pat Name: MARYLU RIVAS Department: Room: [facility] 2 Gender: F Principal Consulting Engineer: Jodie Vinson : 1965 Requested By: MARIUM ZHAO Order Number: [id number] Reading MD: Madi Brewer Measurements Intervals [place] Rate: 113 P: 54 [place]: 65 QRS: 42 QRSD: 74 T: 259 QT: 459 QTc: 630 Interpretive Statements Sinus tachycardia Anterolateral ST/T changes Prolonged QT interval Compared to ECG 02/14/2019 17:12:25 Prolonged QT interval now present Sinus rhythm no longer present Possible ischemia still present Electronically Signed On 02-23-2019 9:54:23 PDT by Madi Brewer CM:EKGRPT:ELECTROCARDIOGRAM REPORT [id number] MARIUM XIE DRAFT REPORT MARIUM ZHAO
--- NOTE | ~2019-02-14 | EKG ---
[place], [place] ELECTROCARDIOGRAM REPORT NAME: MARYLU RIVAS UNIT #: [id number] ROOM: 314 DOCTOR: ANNE-MARIE DRAFT REPORT BIRTHDATE: [birth year] [facility] Test Date: 2019-02-24 Test Time: 08:17:37 Pat Name: MARYLU RIVAS Department: Room: [facility] 2 Gender: F Life Skills Educator: : 1965 Requested By: MARIUM ZHAO Order Number: [id number] Reading MD: Measurements Intervals [place] Rate: 120 P: 41 [place]: 114 QRS: 30 QRSD: 67 T: QT: 372 QTc: 526 Interpretive Statements Sinus tachycardia Ventricular premature complex Aberrant conduction of SV complex(es) Abnormal R-wave progression, early transition Borderline T abnormalities, anterior leads Prolonged QT interval Compared to ECG 02/23/2019 10:55:28 Ventricular premature complex(es) now present Aberrant conduction of supraventricular beat(s) now present T-wave abnormality now present CM:EKGRPT:ELECTROCARDIOGRAM REPORT 6 8 MARIUM XIE DRAFT REPORT MARIUM ZHAO
--- NOTE | ~2019-02-14 | PR ---
[place], [place] PROGRESS NOTE NAME: MARYLU RIVAS UNIT #: [id number] ROOM: 314 DOCTOR: MALCOLM COOLEY CNP BIRTHDATE: [birth year] DOS: 02/21/2019 CHIEF COMPLAINT: "The police are out in the hallway." SUMMARY OF VISIT: The patient was interviewed as she sat in the quiet room. She engaged readily in conversation with me. The patient is very anxious and perseverating on going to snf, paranoid that the police are in the hallway and they are going to take her away. Staff reports that the patient has exhibited word salad at times. This morning, the patient was able to participate in group and her behaviors were appropriate and as lunchtime approached, this is when the patient's behaviors seemed to increase. Staff reports that this happened yesterday as well. MENTAL STATUS EXAMINATION: The patient is alert and oriented to person, place and time. She was pleasant with me. The patient is paranoid and delusional. No overt auditory or visual hallucinations noted. Her speech is rapid and pressured. Her mood is anxious. Affect is congruent with mood. PLAN: We will increase the patient's Clozaril to 150 mg twice a day and 200 mg at bedtime, increase her Luvox to 100 mg in the morning and continue 150 mg at bedtime. We will check a CBC on Friday. Plan to encourage the patient to continue participating in individual and stallworth milieu activity. Continue fall and safety precautions. Plan is to return the patient to the least restrictive environment when she is considered psychiatrically stable. Malcolm Cooley CNP CM:PNTRANS [id number] MALCOLM COOLEY CNP 02/22/19 0104 interface
--- NOTE | ~2019-02-14 | PR ---
[place], [place] PROGRESS NOTE NAME: MARYLU RIVAS UNIT #: [id number] ROOM: 314 DOCTOR: HAYLEY CABRAL MD BIRTHDATE: [birth year] DOS: 02/23/2019 INTERVAL NOTE CHIEF COMPLAINT: "You are not going to have them take me away Dr. Cabral, I am not going to shelter, am I." SUMMARY OF THE VISIT: The patient was interviewed with the nurse present. She was outwardly shaking. It is unclear if this was an anxiety issue where she is having extrapyramidal symptoms from her psychotropics. I did order 50 mg of Benadryl IM and this did seem to calm her and she was resting as I approached her later and she was resting on the couch. She was still tremoring in her sleep. MENTAL STATUS: She is alert and oriented this morning. Mood does seem to be very anxious and fretful and she is still preoccupied and paranoid. Memory is intact. PLAN: I will go ahead and lower some of her psychotropics, bringing the Clozaril down to 100 b.i.d. and 200 mg at bedtime and lowering the Luvox to 50 mg in the morning and 150 mg at night. I will add Klonopin 1 mg in the morning and 2 mg at night both to decrease anxiety, stabilize mood, but also it has an anti-OCD property. I will discontinue Rozerem as the Klonopin should aid her sleep and this will at least simplify her medication regimen. We will monitor for risks, benefits, engage in individual and stallworth milieu activity, returning to the least restrictive environment when psychiatrically stable. HAYLEY CABRAL MD CM:PNTRANS [id number] HAYLEY CABRAL MD 02/24/19 0449 interface
--- NOTE | ~2019-02-14 | DS ---
[place], [place] DISCHARGE SUMMARY NAME: MARYLU RIVAS UNIT #: [id number] ROOM: 314 DOCTOR: HAYLEY CABRAL MD BIRTHDATE: [birth year] DOS: 02/24/2019 CHIEF COMPLAINT: "I think I rushed myself out of the hospital." HISTORY OF PRESENT ILLNESS: This is a 53-year-old white female who was readmitted to the Behavioral Health Care Unit at [facility] after being discharged just several days prior. The patient presented to the Emergency Room stating that she was feeling very much paranoid and feeling that there are messages coming through the TV telling her that the police are outside her home ready to arrest her. She continued to be very paranoid and believing that something was going to happen to her because she has done something wrong and the police and the FBI are out to get her. Following discharge, she had not attended to her ADLs well and she had decompensated very quickly. She was readmitted to restabilize on medication and to engage in individual and stallworth milieu activity. SUMMARY OF HOSPITAL COURSE: The patient was admitted to the unit where because of her relapse despite just being discharged, her previous medications were discontinued. Her Geodon was stopped in lieu of Clozaril 25 mg in the morning and 50 mg at bedtime. She was continued to be augmented with the Invega Sustenna given the severity of her severe mental health issues. Her Luvox was increased from 100 mg at bedtime to 50 mg in the morning and 150 mg at bedtime to decrease depression and also some of the ruminative obsessive ideas that she had. Over the course of her stay, her Clozaril was gradually increased in an effort to block the psychotic symptoms. At the end of her stay, the Clozaril was lowered to 100 mg twice a day and 200 mg at bedtime due to some excessive sedation. Klonopin 1 mg in the morning and 2 mg at night was used to decrease her anxiety and stabilize her mood. Luvox was also lowered to 50 mg in the morning and 150 mg at night. She maintained on the Invega Sustenna. However, on the day of discharge, the patient became unresponsive and a code was called and the patient was subsequently discharged from the U and admitted to ICU for further monitoring. MENTAL STATUS AT DISCHARGE: The patient psychiatrically prior to that had a lessening of her psychosis. There was less of a ruminative quality about her. She was able to change topics more readily. She still had the belief that something bad was going to happen because she is done something bad, but you could at least redirect her. She was tolerating the medication regimen well with just some mild somnolence. There was no benjie or hypomania at the time of discharge. Memory was for the most part intact. FINAL DIAGNOSIS UPON DISCHARGE: Schizoaffective disorder. DISPOSITION: Due to her medical decompensation, the patient was discharged from the U and admitted to ICU for further treatment and monitoring. [place], [place] DISCHARGE SUMMARY NAME: MARYLU RIVAS UNIT #: [id number] ROOM: [facility] DOCTOR: HAYLEY CABRAL MD BIRTHDATE: [birth year] HAYLEY CABRAL MD CM:JASON [phone] HAYLEY CABRAL MD 03/27/19 1622 interface
--- NOTE | ~2019-02-14 | PR ---
[place], [place] PROGRESS NOTE [id number] UN[facility] #: [id number] ROOM: 314 DOCTOR: STACI MANN DO BIRTHDATE: [birth year] DOS: 02/17/2019 PSYCHIATRIC PROGRESS NOTE CHIEF COMPLAINT: "How come you ask the patient about me? You said to her do you know Carol. Are you afraid of Carol?" SUMMARY OF VISIT: The patient initially was found talking to a nurse in the hallway, but was able to be directed to the quiet room to be interviewed. The patient immediately asked Dr. Cabral why he was asking about her to another patient. The patient was then reassured that her name was not brought up while speaking to other patients. Again reassured her that there is no police here. The patient then asked him no one is going to be behind bars by Friday, patient again reassured that this is not the case. The patient mentioned again regarding why her name was brought up to another patient. The patient was able to be redirected regarding us providing her music to listen to. The patient stated "I like the idea about music; I listen to music at home." Again, we reassured the patient that everyone here is to help her and get her better. The patient then voiced "except for that christy in the [facility] outfit, I recognize him." We mentioned to the patient that we will also be readjusting her medications to help her and the patient then replied "okay, they said you are a good doctor." It is noted that while interviewing the patient, it appears that when we change subjects or topics to help redirect her, she is able to control some of her paranoid thinking. Per nursing staff, the patient had extreme paranoia and anxiety throughout most of the day and evening yesterday. She voiced that the [facility] staff were against her and they do not want her here and are talking to the police. The patient was reassured that this is not the case multiple times by multiple nurses. She also stated that she did not want anyone to spend time with her including Dr. Cabral. The patient was then informed that this cannot be done if she wants to get better and she must interact with Dr. Cabral and staff. The patient then at that time voiced understanding. The patient continued throughout the day to go up to different staff members demanding to know why staff is out to get her and why they are calling internet site designer to arrest her. Multiple attempts by multiple different staff and nurses to redirect her were ineffective. Several staff members have attempted to reassure that she does not have legal trouble and that she is here for mental health treatment. She seems to be unreceptive to reality. Staff has attempted to encourage the patient to utilize multiple nonpharmacological coping skills such as deep breathing, one-on-one emotional support, soft music, guided imagery; however, the patient continues to have high anxiety and paranoia, stating "I can't do it, it won't help me, I'm in trouble and none of you will help me. I know that you all think I am defraud of the government and that they are all going to testify against me, so I can go to shelter, but I haven't done anything wrong." Again, the patient is unable to comprehend with reality with labile mood from crying to angry as well as yelling out at peers and staff that they are talking and laughing at her. At this time, Dr. Cabral was contacted around 2029 and patient was given Geodon 20 mg IM. Initially, the patient was sleeping intermittently, walking up and down the halls, whenever she heard any type of noise or other residents talking to the nurses, she kept insisting the nurses are internet site designer dressed up to get her. The patient then finally went to sleep at 0100 [place], [place] PROGRESS NOTE NAME: CAROL RIVAS UNIT #: [id number] ROOM: [facility] DOCTOR: STACI MANN DO BIRTHDATE: [birth year] and slept until 0741. Upon awakening this morning, she was immediately at the desk voicing that you said I was safe here, but there were people in the middle of the night. Again, the patient is reassured and redirected by staff and the patient ended up coming back to her room. MENTAL STATUS EXAMINATION: She is alert and oriented. Mood is very distraught and paranoid. She has very anxious overtones and is grossly delusional, but is able to be redirectable. Nursing staff reports, however, the patient is difficult to redirect during the day. Memory is for the most part intact. PLAN: Increase Clozaril to 50 mg q.i.d. We will engage her in individual and stallworth milieu activity with a plan to return to the least restrictive environment when psychiatrically stable. Staci Mann, DO HAYLEY CABRAL MD CM:CITLALY [phone] STACI MANN DO 02/18/19 0122 interface
--- NOTE | ~2019-02-14 | PR ---
[place], [place] PROGRESS NOTE NAME: MARYLU RIVAS UNIT #: [id number] ROOM: 314 DOCTOR: HAYLEY CABRAL MD BIRTHDATE: [birth year] DOS: 02/22/2019 INTERVAL NOTE CHIEF COMPLAINT: "That medicine for tremor has helped. It's still there. I am feeling a little better Dr. Cabral." SUMMARY OF THE VISIT: The patient was interviewed as she was resting quietly in bed. She reported that she had a better weekend and she did not at any point in time report any delusion with me, but was rather fixated more on her tremor, which seems to be better since Mala Cooley NP started her on the Cogentin. Nurses report that she is more and more able to challenge her delusional thinking and identified as such. MENTAL STATUS: She is alert and oriented. Mood does seem to be trending towards euthymia finally and affect is more appropriate. There is no benjie or hypomania. There is no gross psychosis present at least at superficial glance. Short term, intermediate and long-term memory are intact. PLAN: I will increase her Cogentin from 0.5 mg 3 times a day to 1 mg twice daily to further try to eradicate the tremor. We will engage in individual and stallworth milieu activity, returning to the least restrictive environment when psychiatrically stable. HAYLEY CABRAL MD CM:PNTRANS [phone] HAYLEY CABRAL MD 02/23/19 0022 interface
--- NOTE | ~2019-02-14 | PR ---
[place], [place] PROGRESS NOTE NAME: MARYLU RIVAS UNIT #: [id number] ROOM: 314 DOCTOR: HAYLEY CABRAL MD BIRTHDATE: [birth year] DOS: 02/19/2019 CHIEF COMPLAINT: "Why are you plotting against me Dr. Cabral, why are you with them?" SUMMARY OF THE VISIT: The patient was interviewed as she was sitting in the dining area with many peers. She initially came across very paranoid; however, after I changed the subject and asked her if she was sleeping and eating better, she told me that she actually was feeling better and that she feels that the medicines are working. She very quickly changed subjects off of that paranoia on to a more realistic conversation. She does note that the Geodon IM is very effective for her and I told her I would like to find something similar that would work just as well. MENTAL STATUS: She is alert and oriented to self, place, very approximate to time. Mood is still very fretful and anxious and grossly delusional and paranoid. Memory is relatively intact. PLAN: I will discontinue her p.o. Invega in an attempt now to simplify her regimen. I will increase the Clozaril from 300 mg a day to 400 mg a day given in a dose of 100 b.i.d. and 200 at bedtime and add Rozerem 8 mg at bedtime. With this increased amount of meds at night, hoping to get her sleeping soundly through the night, so that she is more refreshed and able to focus during the day. HAYLEY CABRAL MD CM:PNTRANS [phone] HAYLEY CABRAL MD 02/19/192044 interface
[~2019-02-14 18:46] MED LIST: 'CLONIDINE0.1 MG PO; ATIVAN1 MG PO; BENZTROPINE MESY1 MG PO; DEPAKOTE ER500 MG PO; FLUOXETINE HCL40 MG PO; FLUVOXAMINE50 MG PO; GEODON80 MG PO; INVEGA SUSTENN156 MG IM; LEXAPRO10 MG PO; LORAZEPAM1 MG PO; PALIPERIDONE ER6 MG PO; VITAMIN D5000 UNI1 PO; ZIPRASIDONE HCL80 M1 PO
[2019-02-14 19:00] VITALS: BP 116/60
--- NOTE | 2019-02-14 19:00 | NUR ---
MARYLU RIVAS Erika a 53 year old F admitted via wheel chair from the ADMITTING as a emergency 72 hr. hold admission. Arrived on unit at 1900. ALLERGIES: NKA. Vital signs are: 97.7-70-16 116/60. The client signed the following forms with stated understanding: Authorization For The Release of Medical Information, Clothing List, Consent to Voluntary Admission and Hospitalization, Consent and Release Forms/Receipt of Rights, Acknowledgement of Advance Directive Information, Behavioral Health Consent Form, and Informed Consent of Medications. [facility] A search was conducted and hazardous articles were removed. Client was oriented to the unit. MATTHEW SORENSON
--- NOTE | 2019-02-14 19:45 | NUR ---
DR. ALONSO NOTIFIED OF NEW ADMISSION; MEDICATIONS AND DIAGNOSIS UPDATED FOR REVIEW. PATIENT WILL BE UNDER THE CARE OF DR. ABBASI.
[2019-02-14 20:00] VITALS: BP 116/60
[2019-02-14 23:02] VITALS: BP 110/62
--- NOTE | 2019-02-14 23:23 | NUR ---
VOICE MAIL LEFT FOR MATTHEW MA, COMMUNITY OUTREACH ADVOCATE REGARDING PTS ADMISSION.
--- NOTE | 2019-02-15 01:03 | NUR ---
P-PARANOID, ACCUSITORY I-ASSESS ORIENTATION, MOOD, AND BEHAVIOR. REDIRECT AND PRESENT REALITY NEEDED. PROVIDE 1:1 FOR PATIENT TO VOICE FEELINGS WITH EMOTIONAL SUPPORT AND REASSURANCE OF SAFETY. ENCOURAGE MEDICATION COMPLIANCE. MONITOR SLEEP. R-PATIENT ALERT AND ORIENTED X4. MOOD ANXIOUS, HOPELESS/HELPLESS, AFFECT SUSPICIOUS. DURING ADMISSION PROCESS PT EXPRESSED MULTIPLE PARANOID STATEMENTS REGUARDING [place] AND THE POLICE COMING TO ARREST HER. PT ALSO NOTED TO BE ACCUSITORY TOWARD STAFF STATING "I KNOW THEY TALK ABOUT ME, THEY ARE CALLING ME A DRAMA LOZANO AND THAT THEY CANT STAND ME, ALSO THEY ARE TELLING EVERYONE I HAVE A HISTORY OF SHOP LIFTING". ATTEMPTS TO PRESENT REALITY WITH THERAPEUTIC INTERVENTIONS INEFFECTIVE, PT STATED "YOU COULD TELL ME ALL YOU WANT UNTIL YOU ARE BLUE IN THE FACE, I STILL WONT BELIEVE WHAT YOU OR ANYONE SAYS". PT ALSO STATES THAT SHE DOES HAVE AUDITORY HALLUCINATIONS OF PEOPLE TALKING TO HER THROUGH THE TV AND HAS VISUAL HALLUCINATIONS OF MEN STATING "IM ALONE A LOT SO I CREATE MY OWN WORLD TO HAVE PEOPLE TO TALK TO". SKIN ASSESSMENT COMPLETED, NO WOUNDS NOTED. INDEPENDENT WITH ADL'S, AMBULATORY THROUGHOUT UNIT, GAIT STEADY. MEDICATION COMPLIANT WITHOUT DIFFICULTY AFTER REVIEW. NO PHYSICAL COMPLAINTS VOICED. PT CURRENTLY LAYING DOWN WITH EYES CLOSED, RESPIRATIONS EASY AND REGULAR, NO SIGNS OR SYMPTOMS OF DISTRESS NOTED. P-PRESENT REALITY AND REDIRECT NEEDED. ENCOURAGE MEDICATION COMPLIANCE. PROVIDE 1:1 FOR PATIENT TO VOICE FEELINGS. MAINTAIN Q 15 MIN CHECKS.
--- NOTE | 2019-02-15 06:02 | NUR ---
PATIENT OBSERVED ON Q 15 MIN SAFETY CHECKS TO HAVE SLEPT APPROX 5 HOURS WITH NO AWAKENINGS OR SIGNS AND SYMPTOMS OF DISTRESS NOTED.
[2019-02-15 06:38] LABS: THYROID STIM HORMONE (HS) 4.48 uIU/ml (0.358-4.75)
[2019-02-15 07:34] VITALS: BP 116/59
[2019-02-15 07:51] LABS: VITAMIN D, 25-HYDROXY 27.2 ng/mL (30-100)
--- NOTE | 2019-02-15 08:15 | NUR ---
Treatment Plan meeting with Dr. Marti, RN, AT, [employer] [facility] [employer]. Plan for discharge at the end of the week. Pt. to return home with .
--- NOTE | 2019-02-15 08:25 | NUR ---
PT AWAKE, ALERT AND VERBAL. REMAINS PARANOID. AMBULATORY WITH STEADY GAIT. ON UNIT TO SEE PT AT THIS TIME, UPDATE PROVIDED.
--- NOTE | 2019-02-15 09:26 | NUR ---
RECIEVED PHONE CALL FROM PT'S ,UPDATE GIVEN.
--- NOTE | 2019-02-15 10:15 | NUR ---
ON UNIT TO SEE PT AT THIS TIME. MADE AWARE BP 116/59 HR 59 THIS AM. MADE AWARE PT ORDERED CLONIDINE 0.1MG PO BID PER HOME MED LIST. MADE AWARE PT DID NOT RECIEVE THIS HOME MEDICATION LAST ADMISSION AND HS DOSE WAS HELD LAST NIGHT WELL D/T BP. STATES TO HOLD THIS MORNING'S DOSE AND HE WILL REVIEW.
--- NOTE | 2019-02-15 12:03 | NUR ---
AM GROUP/PARACHUTE/REMINISCE PT ATTEND AND PARTICIPATED DURING GROUP, ALTHOUGH PT DID EXPRESS PARANOID DELUSIONS SUCH "I AM JUST AFRAID I AM GOING TO BE SPLIT UP FROM MY , I AM SO AFRAID THEY ARE GOING TO COME AND GET HIM" THIS STAFF REDIRECTED PT MULTIPLE TIMES, AND GAVE PT A WORDSEARCH AND STRESS BALL TO FOCUS ON. PT LEFT ACTIVITYS A COUPLE TIMES TO EXPRESS CONCERNS TO NURSES. THIS STAFF REMINDING PT THAT SHE WILL JUST HAVE TO COME BACK TO ACTIVITYS PT DECIDED TO REMAIN IN ACTIVTIYS REMAINDER OF TIME, BUT IMMEDIATLEY WENT TO NURSES DESK SOON ACTIVITY COMPLETED. PT WILL CONTINUE TO BE ENCOURAGED TO ATTEND AND PARTICIPATE IN FUTURE GROUP SESSIONS.
--- NOTE | 2019-02-15 12:05 | NUR ---
Pt is a less than 30 day readmit. Refer to previous psychosocial assessment.
--- NOTE | 2019-02-15 14:45 | NUR ---
Family meeting held with pt's Ricardo via the telephone as it is difficult for Ricardo to come to [facility] due to health and transportation issues. Ricardo stated that although pt has been dealing with paranoia for a number of years, pt has been fixated on the police/law since 07/07. Ricardo also found that pt has been trying to find old prescriptions in the home, primarily benzodiazepines, to take since her previous discharge. Discharge plan is for pt to return home with and follow-up with [facility] in [place].
--- NOTE | 2019-02-15 14:51 | NUR ---
Met with pt who is expressing paranoia about the police. Pt stated that the police came to her home after her discharge from [facility] a few days ago. Pt's verified that this was not true. Informed pt of this. Pt questioned how she can discern the truth from delusion. Empathized with pt and discussed this further. Discussed pt following up with counselor upon discharge. Pt is agreeable to this.
--- NOTE | 2019-02-15 15:41 | NUR ---
PM GROUP/POPCORN AND MOVIE PT ATTENDED AND PARTICIPATED DURING GROUP. PT KEPT ASKING THIS STAFF ABOUT WARRANTS AND THIS STAFF WAS ABLE TO REDIRECT PT TO TASK AT HAND AND ENCOURAGED PT TO COME TO THIS STAFF FOR ANY CONCERNS OR QUESTIONS TO ASSIST IN CALMING PT'S PARANOIA. PT WAS PLEASANT AND RECEPTIVE. PT WILL CONTINUE TO BE ENCOURAGED TO ATTEND AND PARTICIPATE IN FUTURE GROUP SESSIONS.
--- NOTE | 2019-02-15 16:08 | NUR ---
P- PT CONTINUES TO EXHIBIT PARANOID DELUSIONS, DEPRESSED MOOD, HOPELESS/HELPLESS WITH ANXIETY NOTED. I- ORIENTATION, MOOD AND BEHAVIOR ASSESSED. ASSESSED PT FOR SI/HI, INTENT OR PLAN. ASSESSED PT FOR S/S HALLUCINATIONS, PARANOIA AND/OR DELUSIONS. REORIENTATION, REDIRECTION, 1:1 AND EMOTIONAL SUPPORT PROVIDED T/O DAY NEEDED. MEDICATIONS ADMINISTERED PER PHYSICIAN'S ORDERS. ENCOURAGED PT TO ATTEND AND PARTICIPATE IN [facility] GROUPS AND ACTIVITIES. R- PT IS ALERT AND ORIENTED X4. MEMORY APPEARS TO BE INTACT. RESPS EASY AND EVEN ON ROOM AIR. MOOD IS DEPRESSED, HOPELESS/HELPLESS AT TIMES WITH ANXIETY NOTED T/O DAY. AFFECT IS SAD, TEARFUL AT TIMES. PT CONTINUES TO VOICE VARIOUS PARANOID DELUSIONS ABOUT THE POLICE COMING TO GET HER AND PEOPLE TALKING AND/OR LAUGHING ABOUT HER REQUIRING FREQUENT EPISODES OF 1:1 WITH REALITY PRESENTATION THROUGHOUT THE DAY. PT INTRUSIVE INTO THE CARE OF OTHERS AT TIMES, PT CAME UP TO THIS NURSE WHILE ADMINISTERING MEDICATION TO ANOTHER PATIENT THIS MORNING, TAPPED THIS RN ON THE SHOULDER AND STATED "WHY WOULD YOU GUYS SEND ME HERE AND GIVE ME A SHOWER JUST TO SET ME UP FOR THE POLICE TO COME GET ME?" PT HAS COME TO NURSE'S STATION A FEW TIMES THIS SHIFT ASKING STAFF IF WE'VE SEEN HER NAME IN THE PAPER FOR COMMITTING ANY CRIMES. ON ANOTHER OCCASION PT GESTURED DOWN THE CARBAJAL TOWARD STAFF MEMBERS CARING FOR ANOTHER PT AND STATES "THEY'RE TALKING AND LAUGHING ABOUT ME. I KNOW IT. IT'S BECAUSE MY AND I ARE GOING TO BE ARRESTED AND SENT TO GROUP HOME". FREQUENT REDIRECTION, REALITY TESTING, 1:1 AND EMOTIONAL SUPPORT PROVIDED BY STAFF THROUGHOUT THE DAY. EFFECTIVE FOR SHORT PERIODS. PT IS MEDICATION COMPLIANT WITHOUT DIFFICULTY. PT REQUIRES MUCH ENCOURAGEMENT TO PARTICIPATE IN GROUPS AND ACTIVITIES. PT DENIES SI/HI, INTENT OR PLAN. P- PLAN TO CONTINUE CURRENT TREATMENT. CONTINUE TO MONITOR MOOD AND BEHAVIORS, PROVIDE APPROPRIATE REORIENTATION, REDIRECTION AND 1:1 NEEDED. CONTINUE TO ENCOURAGE MEDICATION COMPLIANCE WELL GROUP ATTENDANCE AND PARTICIPATION. CONTINUE TO ATTEMPT TO HELP PT DISTINGUISH PARANOIA FROM REALITY.
--- NOTE | 2019-02-15 17:12 | NUR ---
SHIFT CHART CHECK COMPLETED.
--- NOTE | 2019-02-15 19:55 | NUR ---
P--PARANOIA AND ISOLATIVE. APPEARS TO BE RESPONDING TO INTERNAL STIMULI. DIFFICULTY TO HAVE 1:1 WITH HER. MINIMAL RESPONSE TO ANY QUESTIONS CONCERNING HER THOUGHTS AND NEEDS. I--TRIED 1:1 WITH EMOTIONAL SUPPORT. EXPLAINED THAT POLICE/FBI NOT AFTER HER FOR SOMETHING DONE 20 YRS AGO. EXPLAINED THAT STAFF IS ONLY HERE TO HELP, SUPPORT AND TEACH NEW COPING SKILLS TO HER. REINFORCED STAYING OUT OF ROOM AND NOT ISOLATING SELF FROM OTHERS TO DECREASED DESTRUCTIVE THOUGHTS. MEDICATE PER DOCTORS ORDERS AND PRNS. MONITOR Q 15 MINUTES FOR SAFETY.ENCOURAGED HER TO PARTICIPATE IN HER CARE TO HELP US KNOW WHAT SHE NEEDS. R--TEARY WITH MINIMAL RESPONCE. THINKS STAFF AND PATIENTS ARE TALKING ABOUT HER AND THE POLICE ARE COMING. RESPONCES TO QUESTIONS ARE SLOW AND ONLY 1 OR 2 WORDS. IRRITATED THAT SHE CAN'T ISOLATE SELF TO ROOM. P--CONTINUE TO PROVIDE EMOTIONAL SUPPORT. MONITOR FOR CHANGES IN MOOD AND BEHAVIOR. BE AVAILABLE TO TALK AT ANY TIME
[2019-02-15 20:00] VITALS: BP 113/75
--- NOTE | 2019-02-15 21:53 | NUR ---
HAS BEEN TO DESK 3 TIMES SINCE BEING MEDICATED FOR SLEEP. SHE IS REQUESTING ATIVAN TO SLEEP. INFORMED HER WE DO NOT GIVE ATIVAN FOR SLEEP. SHE THEN WENT BACK TO ROOM AND RETURNED IMMEDIATLY SAYING "I HEARD YOU SAY THE TREATMENT MANAGER ARE GOING TO COME AND GET ME IN 5 MINUTES". EXTREMELY DIFFICULT TO REDIRECT. WILL CONTINUE TO MONITOR BEHAVIOR AND MOOD
--- NOTE | 2019-02-15 22:35 | NUR ---
CONTINUEING TO ASK FOR ATIVAN FOR SLEEP. REFUSES TO LISTEN TO STAFF ABOUT PEERING IN OTHERS ROOMS. ACCUSING STAFF OF CALLING THE POLICE TO ARREST HER WHEN SECURITY ON UNIT. DIFFICULTY TO REDIRECT
--- NOTE | 2019-02-16 00:07 | NUR ---
CONTINUES TO WANDER HALLS
--- NOTE | 2019-02-16 02:04 | NUR ---
24 HR chart check completed.
--- NOTE | 2019-02-16 05:53 | NUR ---
WANDERING IN HALLWAY BETWEEN DININGROOM AND BEDROOM. DRESSED FOR THE DAY
--- NOTE | 2019-02-16 06:26 | NUR ---
TEARY AND RESTLESS. THINKS WE ARE SENDING HER AWAY TODAY AND WANTS TO TELL . UNABLE TO REDIRECT THAT SHE ISN'T GOING ANYWHERE. WILL CONTINUE TO MONITOR
--- NOTE | 2019-02-16 06:48 | NUR ---
CAME TO DESK AND ASKED WHY I AM SO MEAN AND WHY DO I PLAN ON DOING SOMETHING TO HER AT 8AM. EXPLAINED NOTHING IS GOING TO HAPPEN TO HER AT 8AM AND THAT SHE NEEDS TO SIT IN DININGROOM TO BE AROUND PEERS AND WELL LIT ROOM. SHE SAYS THAT IF I WAS NICE I WOULD LET HER CALL HER AND GO BACK TO BED. REINFORCED NO PHONE CALLS TILL 9AM AND THAT SHE CAN'T ISOLATE HERSELF BECAUSE THIS INCREASES HER PARANOIA. SHE REPLIED THAT WE ARE JUST MEAN. WILL CONTINUE TO MONITOR BEHAVIOR AND MOOD
--- NOTE | 2019-02-16 07:36 | NUR ---
PT AWAKE, ALERT AND VERBAL. CONTINUES WITH FREQUENT PARANOID STATEMENTS. DIFFICULT TO REDIRECT. EATING BREAKFAST IN DINING ROOM WITH PEERS.
[2019-02-16 07:48] VITALS: BP 108/62
--- NOTE | 2019-02-16 08:15 | NUR ---
Treatment Plan meeting with Dr. Marti, RN, SW and Framing Manager. Plan for discharge next week. Pt. will return home. Dr. Marti making Medication adjustments.
--- NOTE | 2019-02-16 08:16 | NUR ---
ON UNIT TO SEE PT AT THIS TIME, UPDATE GIVEN.
--- NOTE | 2019-02-16 08:50 | NUR ---
CBC ORDERED FOR FRIDAY PER .
--- NOTE | 2019-02-16 09:03 | NUR ---
ATIVAN D/C PER . NEW ORDER ENTERED FOR VISTARIL 50MG PO Q4H PRN PER .
--- NOTE | 2019-02-16 09:08 | NUR ---
Met with pt. this AM. Pt voiced paranoia about the [facility] staff believing that the staff are against her, do not want her here, and are talking to the police about her. Reassured pt. that this is not the case. Spoke to pt. about staff wanting to help her and wanting to see her get better. Pt. stated that she wanted this advertising copywriter to talk to pt's to verify that the police are not after her. Reassured pt. that this advertising copywriter spoke with pt's. who verified that the police were not at their trailer and never were. Carol exhibited high anxiety and requested that no one spend time with her today, including Dr Marti. Informed pt. that this would not be the case and that if pt. wants to feel better, she must interact with Dr Marti and staff. Pt voiced understanding and requested that this advertising copywriter speak to Dr Marti to let him know her concerns. Reassured pt. that this advertising copywriter would do that.
--- NOTE | 2019-02-16 11:40 | NUR ---
PT HAS CONTINUED TO EXHIBIT HIGH LEVELS OF ANXIETY AND PARANOIA THROUGHOUT THE MORNING SINCE BREAKFAST. PT FREQUENTLY COMING UP TO DIFFERENT STAFF MEMBERS THROUGHOUT THE SHIFT DEMANDING TO KNOW WHY STAFF IS OUT TO GET HER AND CALLING THE FUEL HOUSE ATTENDANT TO COME AND ARREST HER. ALL ATTEMPTS BY THIS RN, 2ND RN AND OTHER STAFF TO REDIRECT AND CALM PT HAVE BEEN INEFFECTIVE. STAFF HAS ENCOURAGED PT TO PARTICIPATE IN GROUPS AND DIVERSIONAL ACTIVITIES TO ENGAGE HER MIND AND DIRECT HER THOUGHT PROCESSES ELSEWHERE. PT STATES "THAT WON'T HELP ME. WHY WON'T YOU HELP ME". THIS RN ASKED PT WHAT COULD BE DONE AT THIS TIME TO HELP HER. PT STATES "TELL ME I'M OKAY, TELL ME I'M NOT IN ANY TROUBLE". THIS NURSE AND SEVERAL OTHER STAFF INCLUDING EMERGENCY DEPARTMENT DIRECTOR AND HAVE ATTEMPTED TO REASSURE PT THAT SHE IS NOT IN ANY LEGAL TROUBLE AND TO PRESENT THE REALITY THAT SHE IS HERE FOR MENTAL HEALTH TREATMENT. PT UNRECEPTIVE TO REALITY PRESENTATION AT THIS TIME. PT CONTINUES WITH HIGH ANXIETY AND PARANOIA. STAFF HAS ATTEMPTED TO ENCOURAGE PT TO UTILIZE MULTIPLE NONPHARMALOGICAL COPING SKILLS, DEEP BREATHING, 1:1, EMOTIONAL SUPPORT, SOFT MUSIC AND GUIDED IMAGERY. PT STATES "I CAN'T DO IT. IT WON'T HELP ME. I'M IN TROUBLE AND NONE OF YOU WILL HELP ME. I KNOW THAT YOU ALL THINK I DEFRAUDED THE GOVERMENT AND THAT THEY'RE ALL GOING TO TESTIFY AGAINST ME SO I CAN GO TO [facility], BUT I HAVEN'T DONE ANYTHING WRONG". PT REPORTS HEARING VOICES TALKING ABOUT WARRANTS AND THE DEPARTMENT OF HUMAN SERVICES. ATTEMPTED TO PRESENT REALITY TO PT AND GUIDE HER THOUGHTS TO FOCUS ON REALITY RATHER THAN THE PARANOIA. THIS APPROACH HAS PROVEN INEFFECTIVE WELL. PRN VISTARIL 50MG PO GIVEN AT 1138 FOR INCREASED ANXIETY, WILL MONITOR FOR MEDICATION EFFECTIVENESS.
--- NOTE | 2019-02-16 13:00 | NUR ---
Nirmala GAMINO informed this flex o writer operator that pt's paranoia and anxiety has worsened. Nirmala GAMINO and this flex o writer operator met with pt. Pt voiced paranoia about being in trouble with Medicaid, the police, being banned from her trailer park, and that the staff at [facility] were against her and laughing at her. Pt was visibly anxious. Both Nirmala GAMINO and this flex o writer operator empathized with pt. Reassurance was provided to pt. Discussed pt's illness and the ability of the illness to cause pt to doubt and not trust others. Pt continued to share her paranoid beliefs and auditory hallucinations. Continued to reassure and educate pt. Offered to pt that when she hears voices or believes that the police/others are after her, to tell herself that she has done nothing wrong and that she is a good person. Pt calmed during this intervention. Nirmala GAMINO walked with pt to her room so that pt could rest.
--- NOTE | 2019-02-16 13:56 | NUR ---
Occupational Therapy referral received and screen completed. Patient is independent in ADLs and functional mobility per nursing. Patient is extremely paranoid at this time. Discharge OT referral. Thank you. Elba Cox OTR/Kaya
--- NOTE | 2019-02-16 13:58 | NUR ---
PHYSICAL THERAPY Nursing staff reports patient is (I) with all mobility and has no PT needs. Will d/c PT orders at this time. Thank you for this referral. Allye Alvarado,PT
--- NOTE | 2019-02-16 17:04 | NUR ---
P- PARANOID DELUSIONAL THOUGHT PROCESSES, ANXIETY, DEPRESSED MOOD, HOPELESS/HELPLESS FEELINGS, PERIODS OF TEARFULNESS, PRESSURED SPEECH WITH FLIGHT OF IDEAS NOTED. I- ORIENTATION, MOOD AND BEHAVIOR ASSESSED. ASSESSED PT FOR SI/HI, INTENT OR PLAN. ASSESSED PT FOR S/S HALLUCINATIONS, PARANOIA AND/OR DELUSIONS. MEDICATIONS ADMINISTERED PER PHYSICIAN'S ORDERS. ENCOURAGED PT TO ATTEND AND PARTICIPATE IN GROUPS AND ACTIVITIES TO ASSIST IN ENGAGING PT'S MIND IN DIVERSIONAL ACTIVITIES. SIGNIFICANT PERIODS OF TIME SPENT 1:1 WITH PT BY THIS RN AND SW THROUGHOUT THE DAY IN ATTEMPTS TO CALM AND PROVIDE THERAPEUTIC COMMUNICATION WITH PT. R- PT IS ALERT AND ORIENTED X4. MEMORY APPEARS TO BE INTACT. RESPS EASY AND EVEN ON ROOM AIR. MOOD CONTINUES TO BE DEPRESSED, HOPELESS/HELPLESS AT TIMES WITH FLUCTUATING LEVELS OF ANXIETY NOTED THROUGHOUT THE DAY. PT DENIES SI/HI, INTENT OR PLAN. PT CONTINUES TO EXPERIENCE HIGH LEVELS OF SIGNIFICANT PARANOIA. PT REMAINS FIXATED ON VARIOUS PARANOID DELUSIONS REGARDING THE POLICE AND FBI COMING TO ARREST HER FOR VARIOUS CRIMES. SHE ALSO BELIEVES ALL HOSPITAL STAFF INCLUDING HOUSEKEEPERS AND MAINTENCE WORKERS ARE OUT TO GET HER, LAUGHING AT HER AND TALKING ABOUT ARRESTING HER AND HER AND RAIDING THEIR HOME. THIS RN ALONG WITH SW HAVE SPENT SIGNIFICANT PERIODS OF TIME 1:1 WITH PT ATTEMPTING THERAPEUTIC INTERVENTION. ENCOURAGED PT FOCUS ON RELAXATION TECHNIQUES, DEEP BREATHING AND REPEATING SELF AFFIRMATIONS TO HELP COPE WITH INCREASED PARANOIA AND ANXIETY. PT ABLE TO DO THIS FOR SHORT PERIODS OF TIME WITH MUCH ENCOURAGEMENT AND GUIDANCE. P- PLAN TO CONTINUE CURRENT TREATMENT, CONTINUE TO MONITOR MOOD AND BEHAVIORS, PROVIDE APPROPRIATE THERAPEUTIC INTERVENTIONS, ENCOURAGE MEDICATION COMPLIANCE WELL GROUP ATTENDANCE AND PARTICIPATION. ALSO ENCOURAGE PT TO CONTINUE TO ATTEMPT UTILIZATION OF COPING SKILLS AND STRATEGIES TO DEAL WITH PARANOIA AND ANXIETY.
--- NOTE | 2019-02-16 17:37 | NUR ---
OFFERED PT SHOWER MULTIPLE TIMES T/O SHIFT, PT DECLINED, STATES "NO, NOT NOW".
--- NOTE | 2019-02-16 19:50 | NUR ---
P--PARANOIA, DELUSIONAL, HILARY. CLIENT UNABLE TO COMPREHEND REALITY. LABILE MOOD FROM TEARY TO ANGRY. YELLING AT PEERS THAT THEY ARE TALKING AND LAUGHING ABOUT HER P--HAD 1:1 TO DISCUSS HER FEARS. REINFORCED THAT THE POLICE AND FBI ARE NOT LOOKING FOR HER AND HAVE NOT BEEN ON THE UNIT FOR ANY REASON. DISCUSSED PEERS ARE TALKING AMONG THEMSELVES AND LAUGHING AT THEIR CONVERSATIONS NOT HER. DISCUSSED COPING TECHNIQUES WITH HER INCLUDING READING , LISTENING TO MUSIC OR TV. REINFORCED SHE IS SAFE HERE AND NOONE CAN GET HER IN HER R--YOU ALL KEEP CALLING THE VOCATIONAL TRAINING TEACHER, THEY CAME TO THE UNIT AND ARE TAKING PEOPLE OFF THE UNIT TO TALK TO THEM ABOUT ME. YOU ALL HATE ME AND WANT ME IN CORRECTION. I NEED TO GO HOME P--EMOTIONAL SUPPORT, UPDATE DOCTOR AND DIRECTOR. REINFORCE REALITY. MEDICATE PER ORDERS
[2019-02-16 20:00] VITALS: BP 122/58
--- NOTE | 2019-02-16 20:30 | NUR ---
UPDATED DIRECTOR ON SITUATION. SPOKE WITH DR CABRAL AND UPDATED HIM. ORDERS FOR GEODON 20MG IM X1 NOW RECIEVED
--- NOTE | 2019-02-16 21:00 | NUR ---
ANASTASIA GIVEN RIGHT DELTOID WITHOUT INCIDENT. SPOKE WITH AND FULL UPDATE PROVIDED AND ALL QUESTIONS ANSWERED. IN AGREEMENT WITH PLAN OF CARE.
--- NOTE | 2019-02-16 21:30 | NUR ---
SITTING OUTSIDE CLIENTS DOOR SHE SAYS SHE IS DIZZY BUT KEEPS GETTING UP AND WALKING IN HALLWAY UNSTABLE. EVERYTIME SOMEONE TALKS SHE STARTS CRYING AND SAYING THE POLICE ARE HERE TO GET HER. UNABLE TO REDIRECT TO REALITY. WILL MONITOR FOR SAFETY
--- NOTE | 2019-02-16 21:59 | NUR ---
SLOWING DOWN BUT REMAINS VERY PARANOID WITH ANY SOUNDS OR OTHERS TALKING. REPEATS THAT THE POLICE ARE ON THE FLOOR TO ARREST HER BECAUSE WE CALLED THEM. REFUSES TO BE REDIRECTED TO REALITY. SPEECH RAMBLING AND PRESSURED
--- NOTE | 2019-02-16 23:05 | NUR ---
REFUSED ORTHOSTATIC VITALS
--- NOTE | 2019-02-16 23:17 | NUR ---
REMAINS AWAKE. JUMPS AND RUNS TO DOOR AT EVERY SOUND YELLING THE HOSPICE ADMINISTRATOR ARE HERE
--- NOTE | 2019-02-17 00:35 | NUR ---
SLEEPING INTERMITTENTLY. AWOKE AND CAME RUNNING DOWN [place] WHEN SHE HEARD THE RESIDENTS TALKING TO THE NURSES. SHE INSISTS THEY ARE DISCHARGE PLANNER DRESSED UP TO GET HER
--- NOTE | 2019-02-17 02:52 | NUR ---
24 HR chart check completed.
--- NOTE | 2019-02-17 06:05 | NUR ---
CLIENT FELL INTO FULL SLEEP AROUND 0115AM. STILL SLEEPING AT 0600AM
--- NOTE | 2019-02-17 07:41 | NUR ---
PT AWAKE, ALERT, IN DINING ROOM WITH PEERS.
--- NOTE | 2019-02-17 07:43 | NUR ---
PT UP AT DESK AT THIS TIME VOICING PARANOID DELUSIONS. STATING "YOU SAID I WAS SAFE HERE, BUT THERE WERE PEOPLE HERE IN THE MIDDLE OF THE NIGHT" PT PROVIDED WITH SOFT, CALM REDIRECTION. ACKNOWLEDGED PT FEELINGS AND CONCERNS AND REASSURED OF SAFETY. PT WALKED BACK INTO DINING ROOM, SITTING DOWN BY HERSELF. WILL CONTINUE TO REDIRECT AND REASSURE PT OF SAFETY AT THIS TIME. WILL PROVIDED 1:1 OF EMOTIONAL SUPPORT APPROPRIATE.
[2019-02-17 07:45] VITALS: BP 140/73
--- NOTE | 2019-02-17 07:58 | NUR ---
PT IN ROOM, GIVEN AM MEDICATIONS. STATED SHE HEARD PEOPLE IN THE MIDDLE OF THE NIGHT, ART DIRECTOR WITH WALKIE TALKIES. PT REASSURED OF SAFETY, EXPLAINED TO PT THAT IN THE HOSPITAL, PEOPLE ARE ROUNDING AROUND THE CLOCK, BUT THAT SHE IS SAFE. PT MADE AWARE THAT SHE SHOULD EXPRESS DELUSIONS TO THIS NURSE THEY OCCUR SO THAT SHE CAN BE REDIRECTED, REASSURED, AND PRESENTED WITH REALITY. PT STATED "OK", WISHED TO STAY IN ROOM AT THIS TIME FOR REDUCED STIMULATION.
--- NOTE | 2019-02-17 08:24 | NUR ---
VERBAL ORDER RECIEVED FROM TO D/C CURRENT CLOZARIL ORDERS. INCREASE CLOZARIL TO 50MG FOUR TIMES A DAY. GIVE AN EXTRA 25MG CLOZARIL X1 NOW FOR MORNING DOSE TO = 50MG. ORDERS READ BACK AND VERIFIED. REQUESTS THIS NURSE ENTER ORDERS INTO SYSTEM.
--- NOTE | 2019-02-17 09:59 | NUR ---
Treatment Plan meeting with Dr. Marti, RN, SW and Black Jack Dealer. Plan for discharge next week. Pt. to return home with her .
--- NOTE | 2019-02-17 10:56 | NUR ---
The patient has no complaints and is resting comfortably. JANNET WILLIAMSON
--- NOTE | 2019-02-17 11:26 | NUR ---
PT BECOMING INCREASINGLY AGITATED AND ANXIOUS. BEGAN PACING HALLS, PARANOID OF MEDICAL TEAM ON UNIT TO ASSESS AT THIS TIME. PT GIVEN 1:1, APPEARS EFFECTIVE AT THIS TIME. PT THEN ASSISTED BACK TO ROOM PER HER REQUEST TO DEESCALATE. PT THEN QUICKLY APPROACHED THIS NURSE AND MENTAL HEALTH WORKER STATING "WHY ARE YOU DOING THIS, YOU ARE LYING AND YOU ARE CALLING ME A LIAR." ATTEMPTED TO REDIRECT AND REASSURE, PT ABRUPTLY WALKED BACK TO ROOM. LEFT TO CALM AT THIS TIME.
--- NOTE | 2019-02-17 12:51 | NUR ---
This AM at aprroximately 07:40, pt came to nurse's station and said to this mortgage or loan underwriter, "You told me I was safe here. I'm not safe here." [facility] Pt continued that last night there were people in the unit holding a white curtain or cloth. Pt again stated that she was not safe because she heard the people talking about her and that pt was going to be take away. Reassured pt that this was not correct and that no one was taking her away. It did not appear that pt believed that. Pt was visibly upset and anxious. Pt then asked if this mortgage or loan underwriter had spoken to pt's friend Tiana. Informed pt that this mortgage or loan underwriter had not. Pt walked away toward her room.
--- NOTE | 2019-02-17 14:14 | NUR ---
The patient has no complaints and is resting comfortably. JANNET WILLIAMSON
--- NOTE | 2019-02-17 14:16 | NUR ---
Shift chart check completed.
--- NOTE | 2019-02-17 15:25 | NUR ---
Spoke with Pharmacist at [facility] where patient gets her medications filled. Advised that patient would require Blister packs for medications at discharge to assist patient in being compliant with her medications. Pharmacist entered information into the Computer for Medications to be dispensed with Blister packs.
--- NOTE | 2019-02-17 15:45 | NUR ---
Met with pt this afternoon in her room. Pt continues to voice paranoid delusions and continues to experience auditory hallucinations. Pt [facility]. She stated again that this senior mortgage underwriter told pt that she was safe in the [facility] and that is not true because the staff is out to get her. While sitting in her room, pt stopped talking and listened. There was complete silence, but pt stated that she just heard the animal hospital office supervisor tell the nurse that the police would be at [facility] soon to pick-up the pt. Reassured pt that this is not happening. Attempted to educate pt about her illness. Reminded pt of discussion yesterday and that pt would try to tell herself that she is not in trouble and that she is a good person when pt believed that the police/law were after her. Pt voiced understanding but then stated, "But that's not going to help because the police are truly after me." Empathized with pt and reassured her again that this is not correct. Attempted to redirect pt. Pt spoke of her and then voiced concern because she had not yet talked to him today. Pt questioned that maybe pt's has been taken to correction and that is why pt has not heard from him today. A few minutes after this, pt was informed that her was calling to speak with her. This RADIO INSTALLER-S waited to meet with pt after pt's conversation with her . Pt admitted that it helped to speak with her . Pt then immediately began to speak of paranoid delusion toward to [facility] staff. Pt stated that she was frustrated. She stated that she was going to attempt to rest in her room because she can't go to the activity room because the staff will talk about her. Left pt to rest in her room.
--- NOTE | 2019-02-17 17:13 | NUR ---
PT STATING ANXIETY IS INCREASED. PT STATES SHE IS "GETTING WORSE" AND THAT SHE "DOES NOT KNOW HOW I AM GOING TO MAKE IT THROUGH THE NIGHT. I AM SO SCARED SOMETHING IS GOING TO HAPPEN TO ME". PT ALSO C/O HEADACHE. PT REDIRECTED, ENCOURAGE TO MOVE TO AREA OF LOW STIMULATION, ENCOURAGED TO COMPLETE DIVERSIONAL ACTIVITY SUCH WORD SEARCH OR WATCH MOVIE WITH PEERS. PT STATES SHE JUST CANNOT "SHAKE THE FEELING". NONPHARMACOLOGICAL INTERVENTIONS INEFFECTIVE, VISTARIL 50MG GIVEN AT THIS TIME PER PRN ORDER. TYLENOL 650MG ALSO ADMINISTERED AT THIS TIME FOR HEADACHE RATED "7" OUT OF 10
[2019-02-17 20:10] VITALS: BP 135/70
--- NOTE | 2019-02-18 01:00 | NUR ---
P-PARANOID I-ASSESS ORIENTATION, MOOD, AND BEHAVIOR. REDIRECT AND PRESENT REALITY NEEDED. PROVIDE 1:1 FOR PATIENT TO VOICE FEELINGS WITH EMOTIONAL SUPPORT AND REASSURANCE OF SAFETY. ENCOURAGE MEDICATION COMPLIANCE. MONITOR SLEEP. R-PATIENT ALERT AND ORIENTED X4. MOOD ANXIOUS, HOPELESS/HELPESS. PT ISOLATIVE TO ROOM AND BED SINCE BEGINNING OF SHIFT, REFUSED HS SNACK. PATIENT REMAINS PARANOID,STATED TO STAFF "YOU ARE GOING TO SET OFF ALARMS" DURING MEDICATION PASS, PT NONRECEPTIVE TO THERAPEUTIC INTERVENTIONS WHEN PRESENTED. MEDICATION COMPLIANT WITHOUT DIFFICULTY AFTER REVIEW. DENIES SI/HI AND HALLUCINATIONS, NO NOTED RESPONDING TO INTERNAL STIMULI. NO PHYSICAL COMPLAINTS VOICED. PATIENT CURRENTLY LAYING DOWN WITH EYES CLOSED. RESPIRATIONS EASY AND REGULAR, NO SIGNS OR SYMPTOMS OF DISTRESS NOTED. P-PRESENT REALITY AND REDIRECT NEEDED. ENCOURAGE MEDICATION COMPLIANCE. PROVIDE 1:1 FOR PATIENT TO VOICE FEELINGS. MAINTAIN Q 15 MIN CHECKS.
--- NOTE | 2019-02-18 02:41 | NUR ---
24 HOUR CHART CHECK COMPLETED.
--- NOTE | 2019-02-18 05:49 | NUR ---
PATIENT OBSERVED ON Q 15 MIN CHECKS TO HAVE SLEPT APPROX 7 HOURS WITH NO AWAKENINGS OR SIGNS AND SYMPTOMS OF DISTRESS NOTED.
[2019-02-18 07:18] LABS: BASO % 0.4 % (0.0-1.0); EOS # 0.1 10*3/uL (0.0-0.4); EOS % 1.5 % (1.0-4.0); HEMATOCRIT 41.5 % (37.0-47.0); HEMOGLOBIN 13.6 g/dl (12.0-16.0); LYMPH % 10.6 % (27.0-41.0); MEAN CELL VOLUME 96.1 fl (81.0-99.0); MEAN CORPUSCULAR HGB 31.5 pg (27.0-31.0); MEAN CORPUSCULAR HGB CONC 32.8 g/dl (33.0-37.0); MEAN PLATELET VOLUME 10.9 fl (9.6-12.3); MONO # 0.6 10*3/uL (0.1-1.0); MONO % 5.7 % (3.0-9.0); NEUT # 7.8 10*3/uL (2.3-7.9); NEUT % 81.6 % (47.0-73.0); PLATELET COUNT AUTOMATED 199 10*3/uL (130-400); RED BLOOD COUNT 4.32 10*6/uL (4.10-5.10); WHITE BLOOD COUNT 9.6 10*3/uL (4.8-10.8)
[2019-02-18 07:46] VITALS: BP 104/59
--- NOTE | 2019-02-18 08:15 | NUR ---
Treatment Plan meeting with Dr. Marti, RN, SW and Health And Safety Coordinator. Plan for Discharge Next week. Pt. came from home and plan is for her to go home when Stable.
--- NOTE | 2019-02-18 10:18 | NUR ---
P: PT INCREASINGLY ANXIOUS AND AGITATED, DELUSIONAL STATING "I KNOW YOU CALLED THE FBI TO COME AND GET ME" I: ATTEMPTED TO PRESENT REALITY AND RE-ORIENT, PROVIDED 1:1 FOR PT TO VOICE FEELINGS, PROVIDED LOW STIMUALATION ENVIRONMENT FOR PT TO CALM, ENCOURAGED PT TO PRACTICE DEEP BREATHING EXERCISES R:PT CONTINUES TO BE ANXIOUS, AGITATED AND DELUSIONAL P: PT MEDICATED WITH GEODON [address] PRN PER DR NICOLE NOW ORDERS, ENCOURAGED PT TO CONTINUE TO PRACTICE DEEP BREATHING EXERCISES, PROVIDE LOW SIMUTALTIONS ENVIRONMENT FOR PT TO CALM
--- NOTE | 2019-02-18 11:30 | NUR ---
DR. HARRIS ON UNIT TO ASSESS PATIENT.
--- NOTE | 2019-02-18 11:35 | NUR ---
ANASTASIA WALLS, SPOKE WITH DR. CABRAL, ORDERS RECEIVED FOR ATIVAN 2MG IM NOW.
--- NOTE | 2019-02-18 11:50 | NUR ---
ATIVAN 2MG IM GIVEN TO LEFT DELTOID, PATIENT TOLERATED WELL. MEDICAL LIAISON CONTINUES TO PROVIDE ONE ON ONE WITH PATIENT.
--- NOTE | 2019-02-18 12:30 | NUR ---
PATIENT CONTINUE TO BE ANXIOUS WITH REPEATIVE CONCERNS. ONE ON ONE WITH PATIENT TO EXPRESS FEELING AND PROVIDE REORIENTATION. ENCOURAGED PATIENT TO SIT DOWN TO EAT AND REDIRECTED TO HELP PATIENT TO BE FOCUSED ON ONE THIS AT A TIME. PATIENT CONTINUED TO VOICE DELUSIONAL THOUGHTS OF HAVING A WARRENT AND BEING ARREST. CONTINUE TO MONITOR THE EFFECTIVENESS OF MEDICATIONS.
--- NOTE | 2019-02-18 12:38 | NUR ---
Extensive time spent with pt today. Pt is voicing paranoid delusions, having auditory hallucinations, and is extremely anxious. Pt also displayed flight of ideas. Examples of pt's paranoid delusions included: belief that the police are after her, her home was going to be taken from her, she is losing her , Dr Marti is against her and is making fun of her, the [facility] staff are against her and are making fun of her, this staff writer is supposed to be her advocate but is working as a spy, and her friend Tiana is plotting against her. Pt would hear others outside of the room and would tell this staff writer exact comments that she believed they were saying against her. When it was silent, pt would stop talking and listen, then would tell this staff writer what the voices were saying. She heard specifically the voice of her friend Tiana. Pt was primarily fixated on being wanted by the police and that [facility] staff were working to get pt to the police. Attempted to calm pt with calming techniques, validation, education about pt's illness, empathy, and redirection. No intervention was effective. Spoke with nursing and requested that another PRN med be administered as pt was not calming. Her delusions and hallucinations were escalating. PRN Ativan IM was ordered by Dr Marti. Encouraged pt to eat some lunch. Pt continued to voice paranoid delusions and was at times nonsensical. Pt stated that she knows Keely TRINIDAD at [facility] wants nothing to do with pt. Pt asked that this staff writer phone [facility] to verify pt is able to return there. Left pt alone and again encouraged her to eat.
--- NOTE | 2019-02-18 13:30 | NUR ---
PRN ATIVAN EFFECTIVE, PATIETN ASSISTED WITH SHOWER. REDIRECTED AND ONE ON ONE PROVIDED. PATIENT PACING LESS. STILL VOICED FIXED DELUSION BUT NOT MUCH. PATIENT IS ALERT AND ORIENT TO PERSON, PLACE, TIME AND SITUATION. DENIES ANY HI/SI OR PAIN. RESPONDING TO INTERNAL STIMULI. INDEPENDENT WITH ACTIVITIES OF DAILY LIVING, CONTINENT OF BOWEL AND BLADDER. SET UP FOR MEALS. INTAKES VARIES WITH ENCOURAGEMENT OF FLUIDS. Q 15 MINUTE SAFETY CHECKS. MEDICATION COMPLAINT WITH EDUCATION PROVIDED. CONTINUE TO MONITOR VOICED HALLUCINATIONS AND DELUSIONS. PROVIDE ONE ON ONE; REDIRECTIONS/ORIENTATION NEEDED.
--- NOTE | 2019-02-18 17:00 | NUR ---
PATIENT PACING, UP AT NURSES STATION MULTIPLE TIMES ASKING ABOUT THE POLICE, STATING SHE IS AFRAID TO GO TO SLEEP BECAUSE SHE IS GOING TO BE ARREST. REALITY ORIENTATION PROVIDED AND INEFFECTIVE. PATIENT HANDS SHAKING. ASKED PATIENT IF SHE WANTED SOMETHING FOR HER ANXIETY. PATIENT STATED YES. PRN VISTARIL 50MG PO GIVEN AT THIS TIME.
--- NOTE | 2019-02-18 18:00 | NUR ---
PRN VISTARIL EFFECTIVE. PATIENT RESTING IN BED.
[2019-02-18 20:00] VITALS: BP 100/52; BP 100/72
--- NOTE | 2019-02-18 20:10 | NUR ---
URINE SPECIMEN COLLECTED. URINE CLOUDY YELLOW. URINE OUTPUT OF 100ML. PATIENT WITH NO COMPLAINTS OF DYSURIA.
[2019-02-18 21:11] LABS: BILIRUBIN NEGATIVE (NEGATIVE); BLOOD NEGATIVE (NEGATIVE); CLARITY CLEAR (CLEAR); COLOR YELLOW (YELLOW); GLUCOSE NEGATIVE (NEGATIVE); KETONE NEGATIVE (NEGATIVE); LEUKO ESTERASE 1+ (NEGATIVE); NITRITE NEGATIVE (NEGATIVE); SPECIFIC GRAVITY <= 1.005 (1.005-1.030); UROBILINOGEN 0.2 E.U./dl (0.2-1.0)
[2019-02-18 21:18] LABS: BACTERIA 1+
--- NOTE | 2019-02-18 21:50 | NUR ---
DR SIERRA UPDATED WITH URINAYSIS RESULTS. NO NEW ORDERS AT THIS TIME. WAITING FOR PENDING CULTURE RESULTS
--- NOTE | 2019-02-18 22:15 | NUR ---
P-PARANOIA, HALLUCIANTIONS. PATIENT ALERT WITH PERIODS OF CONFUSION. SHORT TERM AND SNF MEMORY DEFICITS NOTED. PATIENT WITH NO RESPIRATIONS DISTRESS. PATIENT WITH NO SUICIDAL OR HOMICIDAL IDEATIONS. PATIENT WITH AUDITORY AND VISUAL HALLUCINATIONS. PATIENT WITH PARANOID DELUSIONS. PATIENT STATING "I SEE AND HEAR THE POLICE. THEY ARE COMING TO GET ME". I-REDIRECTION WITH 1:1 THERAPEUTIC INTERVENTIONS AND PRESENT REALITY. EDUCATED AND ENCOURAGE MEDICATION COMPLIANCE. DISCUSS TRIGGERS FOR PARANOIA AND HELP TO IDENTIFY COPING MECHANISMS FOR EPISODES OF PARNOIA R- PATIENT MEDICATION COMPLIANT AND SWALLOWING MEDICATIONS WITHOUT DIFFICULTY. REDIRECTION WITH 1:1 THERAPEUTIC INTERVENTIONS EFFECTIVE AT THIS TIME. PATIENT STATING TO THIS NURSE "THEY GAVE ME A SHOT EARLIER. IT SEEMED TO HELP CALM ME DOWN AND TO SLEEP". THIS NURSE AND PATIENT DISCUSSED NONPHARMACOLOGICAL INTERVENTIONS TO HELP WITH EPISODES OF PARANOID. PATIENT WITH COMPLAINT OF GI DISTRESS. PATIENT MEDICATED WITH MAALOX WITH EFFECTIVE RESULTS AT THIS TIME. P-CONTINUE TO ENCOURAGE MEDICATION COMPLIANCE, CONTINUE TO PRESENT REALITY, ENCOURAGE GROUP THERAPY WHILE AWAKE
--- NOTE | 2019-02-19 01:31 | NUR ---
24 HR chart check completed.
--- NOTE | 2019-02-19 06:15 | NUR ---
PATIENT SLEPT >7 HOURS OF UNINTERRUPTED SLEEP THROUGHOUT SHIFT. Q 15 MINUTE CHECKS MAINTAINED
[2019-02-19 08:12] VITALS: BP 108/59
--- NOTE | 2019-02-19 11:00 | NUR ---
Treatment Plan meeting with Dr. Marti, RN, SW and Custom Shop Worker. Plan for discharge next week. Pt. lives at home with her and will return home at discharge.
--- NOTE | 2019-02-19 13:22 | NUR ---
Pt appeared to be avoiding this data analyst report writer this AM. Pt would not make eye contact and did not acknowledge this data analyst report writer when this data analyst report writer said good morning to her. At lunchtime, when this data analyst report writer was sitting with two other patients, pt approached this data analyst report writer and said that this renal social worker had lied. Pt continued that this data analyst report writer was to be pt's advocate but instead is working with the police to have pt taken away. Reassured pt that this was not correct. Pt then sat down to finish eating but would no longer speak to this data analyst report writer.
--- NOTE | 2019-02-19 15:58 | NUR ---
P: INCREASED PARANOID DELUSIONS, VOICING THOUGHTS OF BEING TAKEN TO THE POLICE, GOING TO [facility]. THINKING OTHERS ARE TALKING ABOUT HER. LISTENS TO EVERYONE'S CONVERSATIONS THEN CONFABULATES PERSECUTORY DELUSIONS THAT SHE IS IN TROUBLE. PATIENT BELIEVES SHE IS IN THE PAPER FOR WARRANTS AND THE HOSPITAL IS BUGGED. I: ONE ON ONE, REDIRECTION, PRESENT REALITY ORIENTATION, CONSTANT REASSURANCE THAT PATIENT IS SAFE AND NOT GOING TO [facility]. R: PATIENT IS ALERT TO PERSON, PLACE AND SITUATION; ABLE TO VOICE NEEDS. MOOD IS IRRITABLE, ANXIOUS. PREOCCUPIED WITH FIXED DELUSIONS AND GOING HOME P: CONTINUE TO MONITOR FOR HALLUCINATIONS, DELUSIONS, PARANOID THOUGHTS; PROVIDE ONE ON ONE TO EXPRESS NEEDS, ORIENTATION TO REALITY AND REDIRECTION NEEDED.
[2019-02-19 20:00] VITALS: BP 117/65
--- NOTE | 2019-02-19 22:50 | NUR ---
P-PARANOIA. PATIENT ALERT WITH PERIODS OF CONFUSION. SHORT TERM AND PENITENTIARY MEMORY DEFICITS NOTED. PATIENT WITH NO RESPIRATIONS DISTRESS. PATIENT WITH NO SUICIDAL OR HOMICIDAL IDEATIONS. PATIENT WITH NO HALLUCINATIONS AT THIS TIME. PATIENT WITH PARANOID DELUSIONS. PATIENT STATING "I KNOW I'M GOING TO BE ARRESTED. I DON'T KNOW WHEN THE POLICE ARE COMING FOR ME". I-REDIRECTION WITH 1:1 THERAPEUTIC INTERVENTIONS AND PRESENT REALITY. EDUCATED AND ENCOURAGE MEDICATION COMPLIANCE. DISCUSS TRIGGERS FOR PARANOIA AND HELP TO IDENTIFY COPING MECHANISMS FOR EPISODES OF PARNOIA R- PATIENT MEDICATION COMPLIANT AND SWALLOWING MEDICATIONS WITHOUT DIFFICULTY. ORAL CAVITY EXAMINED FOR POCKETING MEDICATIONS. REDIRECTION WITH 1:1 THERAPEUTIC INTERVENTIONS EFFECTIVE AT THIS TIME. PATIENT STATING TO THIS NURSE "I'M JUST GOING TO TRY AND GO TO BED. I FEEL NERVOUS SOMETIMES". P-CONTINUE TO ENCOURAGE MEDICATION COMPLIANCE, CONTINUE TO PRESENT REALITY, ENCOURAGE GROUP THERAPY WHILE AWAKE
--- NOTE | 2019-02-20 00:02 | NUR ---
24 HR chart check completed.
--- NOTE | 2019-02-20 05:05 | NUR ---
PATIENT SLEPT >5 HOURS OF INTERRUPTED SLEEP THROUGHOUT SHIFT. Q 15 MINUTE CHECKS MAINTAINED
[2019-02-20 07:49] VITALS: BP 132/82
--- NOTE | 2019-02-20 09:00 | NUR ---
DR. PLATT ON UNIT TO SEE PT NO COMPLAINTS AT THAT TIME
--- NOTE | 2019-02-20 10:36 | NUR ---
P: PARANOID THOUGHTS IN REFERENCE TO SURROUNDINGS, PEERS AND DELUSIONS, ANXIETY RELATED TO POOR COPING SKILLS I: TODAY SPOKE WITH PATIENT ABOUT GOALS FOR HER WITH COPING SKILLS, AT THIS TIME PT IS TO DISPLAY COPING SKILLS SUCH BREATHING, SELF REDIRECTIONS, ANALYZING HER SITUATION TO HELP HER RECOGNIZE IF SHE IS HAVING REALITY OR PARANOID THOUGHTS. DETAILS GIVEN FOR PATIENT THAT OUR GOAL FOR THE DAY TO IS FOR HER TO BE ABLE TO COME TO THE STAFF WITH SOLUTIONS OR COPING SKILLS BEING USED AND IF NEEDED WE WILL HELP TO GUIDE HER TO THE ANSWERS. R: PT RESPONSIVE TO PLAN, APPROACHING NURSE WITH BREATHING TECHNIQUES, ALSO ASKING QUESTIONS IN BROKEN DOWN STATEMENTS ANAZLYZING REALITY OR PARANOIA. P: CONTINUE TO ASSIST PATIENT IN USING COPING SKILLS WITHOUT BEING DEPENDANT ON STAFF FOR DIRECTION
--- NOTE | 2019-02-20 11:57 | NUR ---
AM GROUP/EXERCISES/GAMES PT ATTENDED AND PARTICIPATED DURING GROUP. PT PLEASANT BUT DID BECOME OFF TASK A COUPLE OF TIMES DUE TO PARANOID THOUGHTS. PT EASILY REDIRECTED AND REMINDED OF PLAN BY NURSE (DEEP BREATHING AND RECOGNITION OF PARANOID THOUGHT VS. REALITY). PT DID SNEAK OUT OF ROOM TO NURSES DESK A TIME OR TWO WITHOUT ALLOWING THIS STAFF TO ASSIST WITH THOUGHT. PT RENTER ROOM AND BACK ON TASK. PT WILL CONTINUE TO ATTEND AND PARTICIPATE IN FUTURE GROUP SESSIONS.
--- NOTE | 2019-02-20 12:25 | NUR ---
PT HAS STOPPED DOING THERAPEUTIC BREATHING, INCREASED PACING AND HAS STARTED WITH FAST SPEECH AND INCREASED PARANOID THOUGHTS, AT THIS TIME VISTERAL GIVEN WHEN DESTIMULATION, LOW STIM, REDIRECTION, DISTRACTION AND 1:1 INEFFECTIVE AT THIS TIME. PT IS CURRENTLY IN HER ROOM
--- NOTE | 2019-02-20 15:07 | NUR ---
PT CONTINUED WITH RAPID SPEECH, INCREASED AGITATION THROUGHOUT THE AFTERNOON, GUIDLINES GIVEN FOR HER TO CONTINUE TO BREATH, STRETCH, AND ACKNOWLEDGE IF SHE IS HAVING PARANOID THOUGHTS OR IF IT IS REALITY. PT HAS BEEN IDENTIFYING PIECES OF HER THOUGHT PROCESS, SHE BECAME AGITATED WITH STAFF WHEN SHE ATTEMPTED TO MAKE PHONE CALL TO AND HE DID NOT ANSWER AT 1300, YELLING OUT AT NURSES. AT THIS TIME PT CONTINUES TO PACE FROM ROOM TO NURSES STATION, AT TIMES APPROACHES WITH RAPID PACE AND SPEECH UNDERLYING TONES OF AGITATION. 1:1 WITH PATIENT WITH THIS NURSE CONTINUES, SHE STATED SHE IS FRUSTRATED THAT SHE IS ALWAYS FEELING LIKE SHE IS OR WILL BE IN TROUBLE, SHE DID VOICE SHE IS AWARE THESE ARE PARANOID THOUGHTS IN WHICH I ENCROURAGED HER ENEIDA ONTINUE TO EXPRESS. PT STATED SHE CONTINUES WITH NERVOUS FEELINGS AND AGITATION, REQUESTED SOMETHING FOR ANXIETY" I HATE FEELING LIKE THIS AND I DON'T WANT TO EXPLODE, I AM REALLY TRYING TODAY BUT I NEED HELP" GEODON GIVEN IM TO RIGHT DELTOID CONTINUE TO MONITOR 15 MIN CHECKS AND REDIRECT NEEDED
--- NOTE | 2019-02-20 16:48 | NUR ---
PM GROUP/TELLY PHILIP/LEISURE SKILLS PT CHOSE NOT TO ATTEND OR PARTICIPATE IN AFTERNOON GROUP. NURSE INFORMED THIS STAFF THAT PT PARANAOID THOUGHTS ESCALATED THEREFORE PT GIVEN PRN. PT REMAINED IN ROOM ENTIRE GROUP AND WILL CONTINUE TO BE ENCOURAGED TO ATTEND AND PARTICIPATE IN FUTURE GROUP SESSIONS.
--- NOTE | 2019-02-20 18:42 | NUR ---
PT HAS BEEN USING COPING SKILLS, SHE TOLERATED GEODON WELL, VOICED ACKNOWLEDGEMENT OF COPING SKILLS AND THAT SHE FEELS THAT IT HAS BEEN WHAT SHE FEELS IS A BETTER DAY, WITH LESS ANXIETY. SPOKE WITH HER AND REMAINED CALM, DEEP BREATHING USED, REFOCUSED NUMEROUS TIMES TO MAINTAIN MOOD AND ANXIETY
[2019-02-20 19:57] VITALS: BP 107/52
--- NOTE | 2019-02-20 21:39 | NUR ---
P--PARANOIA, ANXIETY, POOR REALITY COGNITION I--GAVE VERBAL PROMPS OF HOW GOOD SHE IS GOING. POSITIVE REINFORCEMENTS PROVIDED. HAD 1:1 ABOUT HER IMPROVEMENT. DISCUSSED PARANOIA VS REALITY. R--OH THANK YOU FOR NOTICING. I DID REALLY GOOD TODAY AND SLEEP ALMOST ALL NIGHT LAST NIGHT. I FEEL BETTER AND HAD A GOOD DAY. TOMORROW IS GOING TO BE EVEN BETTER AND I AM GOING TO SLEEP ALL NIGHT TONIGHT. P--CONTINUE POSITIVE REINFORCMENT AND PRAISE. WILL MONITOR Q 15 MINUTES AND PRN. MONITOR FOR CHANGES IN BEHAVIOR AND MOOD
--- NOTE | 2019-02-21 02:33 | NUR ---
24 HR chart check completed.
--- NOTE | 2019-02-21 02:56 | NUR ---
UP 3 TIMES ASKING QUESTIONS...SANJUANA TALKIE UNDER BED..MOVING HER OUT OF ROOM. WAS ABLE TO ANSWER OWN QUESTIONS OF PARANOIA VS REALITY. CONGRADUATED HER ON THIS AND EMOTIONAL SUPPORT PROVIDED
--- NOTE | 2019-02-21 05:59 | NUR ---
POOR SLEEP PAST 0. ONLY SLEPT APPROX 2 HOURS LAST NIGHT. SPEND MOST OF NIGHT IN ROOM BUT DID COME OUT A FEW TIMES FOR REASSURANCES
--- NOTE | 2019-02-21 06:47 | NUR ---
DISCUSSED IMPORTANCE OF SLEEP. ENCOURAGED HER TO TRUST STAFF THAT WE WILL COME AND GET HER IF THERE IS A PROBLEM. EXPLAINED THAT SHE IS GOING TO HEAR THINGS ALL NIGHT, AMBULANCE, HELICOPTERS, PEOPLE TALKING, POSSIABLY CRYING, MALE SECURITY VOICES. CLIENT VERBALIZED UNDERSTANDING AND STATES SHE WILL TRY HARDER TONIGHT
[2019-02-21 07:34] VITALS: BP 118/67
--- NOTE | 2019-02-21 09:26 | NUR ---
P: ANXIETY, PARANOIA, REPEATATIVE BEHAVIORS, POOR SELF MOTIVATION I: GIVE GUIDLINES FOR HER THROUGH OUT THE DAY TO ENCOURAGE COPING SKILL UTILIZATION, PT ENCOURAGED TO DO BREATHING EXCERCISES, EDUCATION PAPERWORK GIVEN, STRUCTURED INTERACTION AND CLEAR REQUIREMENTS FOR THE DAY GIVEN AT THIS TIME. WHEN PT APPROACHES STAFF IN CONCERN WITH HER THOUGHTS OR THAT SHE IS HEARING PEOPLE CONSPIRING AGAINST HER, STAFF TO ENCOURAGE HER TO EVALUATE EACH ASPECT OF WHAT SHE IS HEARING AND DECIDE WHAT PARTS ARE REAL AND WHAT THOUGHTS ARE PARANOID ASPECTS. R:PT VERY RESCEPTIVE TO APPROACH STATES SHE FEELS LIKE SHE IS GAINING CONTROL OF SITUATIONS AND THAT IT IS HELPING HER TO FIGURE OUT WHAT IS GOING ON AROUND HER. P: CONTINUE WITH EDUCATION TO BROADEN HER COPING SKILLS WITH A VARIETY OF DISTRACTION TECHNIQUES SUCH COLORING OR HANDS ON ACTIVITIES
--- NOTE | 2019-02-21 11:38 | NUR ---
PT PARTICIPATED IN GROUP THERAPY, WITH DEEP BREATHING AND ABILITY TO REDIRECT HERSELF, AFTER THE GROUP MEETING PT ESCALATED WITH PARANOID THOUGHTS AND DIFFICULT TO REDIRECT OR REORIENT, PT HAD RAMBLED GARBLED SPEECH AT TIME DUE TO RAPID NATURE OF THOUGHT PROCESS. BELIEVES SHE TALKED TO HER FRIEND ANA WHO TOLD HER THAT THEY NEEDED TO TURN THEMSELVES INTO THE POLICE, PT REORIENTED THAT SHE HAS NOT SPOKEN TO ANYONE EXCEPT HER STAFF AND TODAY. DISTRACTION NOT EFFECTIVE, PT WENT TO HER ROOM FOR 15 MIN TO REDIRECT AND DESTIMULATE AND IS CURRENTLY EATING LUNCH.
[2019-02-21 20:00] VITALS: BP 122/68
--- NOTE | 2019-02-21 22:22 | NUR ---
P--ANXIETY AND PARANOIA I--REMINDED HER OF CONVERSATION WE HAD THIS MORNING. EMOTIONAL SUPPORT PROVIDED. MEDICATED PER ORDERS. MONITOR FOR CHANGES IN BEHAVIOR OR MOOD R--I REMEMBER OUR CONVERSATION. I AM GOING TO HEAR ALOT OF NOISES, DIFFERENT SOUNDS BUT IF I CONCERNS ME YOU WILL COME AND TELL ME. P--CONTINUE EMOTIONAL SUPPORT AND COPING TECHNIQUES
--- NOTE | 2019-02-22 04:56 | NUR ---
24 HR chart check completed.
--- NOTE | 2019-02-22 04:58 | NUR ---
HAS DONE WONDERFUL THIS SHIFT. ONLY OUT ONCE TO CHECK TIME. SLEPT MOST OF SHIFT.
--- NOTE | 2019-02-22 08:15 | NUR ---
Treatment Plan meeting with Dr. Marti, RN, AT, SW and Mcat Tutor. Plan for discharge at the end of the week. Pt. to return home with her .
[2019-02-22 08:16] VITALS: BP 121/65
--- NOTE | 2019-02-22 10:11 | NUR ---
DR. HARRIS ON UNIT TO ASSESS PT, UPDATE PROVIDED.
--- NOTE | 2019-02-22 12:09 | NUR ---
AM GROUP/REMINISCING AND SOCIALIZING PT DID NOT ATTEND MORNING GROUP THERAPY. PT WAS IN BED RESTING. PT WILL BE ENCOURAGED TO ATTEND AFTERNOON GROUP.
--- NOTE | 2019-02-22 14:36 | NUR ---
P: PT INCREASINGLY ANXIOUS, AGITATED, IRRITABLE. PT RESTLESS. PT EXPERIENCING PARANOID DELUSIONS STATING "WHY ARE YOU HAVING ME ARRESTED? WHAT DID I DO TO YOU?" I: PROVIDED EMOTIONAL SUPPORT AND 1:1 FOR PT TO CALM, PROVIDED LOW STIMULATION ENVIRONMENT FOR PT TO CALM, ENCOURAGED PT TO UTILIZE POSITIVE COPING SKILLS R: PT CONTINUES TO VOICE PARANOID DELUSIONS, UNABLE TO PRESENT REALITY OR CALM WITH NON-PHARMCOLOGIC INTERVENTIONS P: CONTINUE TO MONITOR PT BEHAVIORS ON Q15 MIN SAFETY CHECKS, CONTINUE TO PROVIDE 1:1, PT MEDICATED WITH PO PRN VISTARIL PER ORDERS
--- NOTE | 2019-02-22 15:15 | NUR ---
Pt verbalizing paranoid delusions this afternoon. Pt stated that a discharge is being planned for her today and that the [facility] are [facility]. Staci GAMINO and this rfp writer reassured pt that this is not true. Staci reminded pt that this was pt's illness that was telling pt this. Pt became tearful stating that she needs help because she believes these thoughts. Education provided to pt by Staci and this rfp writer. Pt continued to voice delusion and was anxious.
--- NOTE | 2019-02-22 15:30 | NUR ---
MAURIZIO INEFFECTIVE, STAFF PROVIDING EMOTIONAL SUPPORT AND 1:1 FOR PT TO VOICE FEELINGS.
--- NOTE | 2019-02-22 15:43 | NUR ---
PM GROUP/LEISURE INTERESTS PT DID REFUSED TO ATTEND AFTERNOON GROUP THERAPY STATING, "THEY ALL HATE ME IN THERE"
--- NOTE | 2019-02-22 16:15 | NUR ---
SPOKE WITH DR. CABRAL RE: PT BEHAVIORS AFTER VISIT WITH PT . PER DR. CABRAL, PT IS TO HAVE NO PHONE CALLS OR VISITS UNTIL HE EVALUATS THE SITUATION TOMORROW.
[2019-02-22 20:00] VITALS: BP 121/65; BP 134/84
--- NOTE | 2019-02-22 21:06 | NUR ---
EVEBNING/CRAFTS/MUSIC PT CHOSE NOT TO ATTEND OR PARTICIPATE IN GROUP WITH MUCH ENCOURAGEMENT FROM THIS STAFF. PT TALKING WITH THIS STAFF 1:1 PRIOR TO GROUP EXPRESSING MANY PARANOID DELUSIONS. THIS STAFF GIVING PT CHOICES BETWEEN WORRYING OR UTILIZING GROUP TIME A DISTRACTION. PT CHOSE TO REMAIN IN ROOM AND NOT PARTICPPATE OR ATTEND GROUP. PT WILL CONTINUE TO BE ENCOURAGED TO ATTEND AND PARTICPATE IN FUTURE GROUP SESSIONS.
--- NOTE | 2019-02-22 22:43 | NUR ---
P-SEVERE PARANOIA AND THOUGH INSERTION NOTED. PT OVERHEARS OTHERS CONVERSATIONS AND BELIEVE THEY ARE RELATED TO HER. RESTLESS WITH PERIODS OF OVERWHELMING ANXIETY AT TIMES. PT OFTENS SEEN QUICKLY WALKING UP TO STAFF AND ACCUSING THEM OR TALKING ABOUT HER WHICH REQUIRES MUCH AND FREQUENT AND MUCH REDIRECTION. I-EMOTIONAL SUPPORT PROVIDED WITH 1:1. FREQUENT REDIRECTION. FIRM BOUNDRIES AND LIMIT SETTING. REVIEWED AND ENCOURAGED PT TO UTILIZE COPING SKILLS. REALITY PRESENTED. MEDICATION EDUCATION PROVIDED. REFUSED ORTHOS. R-PT MOOD/BEHAVIOR REMAINS UNCHANGED. ALL INTERVENTIONS EXHAUSTED HAVE BEEN FUTILE. MEDICATION COMPLIANT WITHOUT DIFFICULTY. SPEECH IS PRESSURED AND TANGENTIAL WITH FOI PRESENT. REMAINS PREOCCUPIED AND FIXATED ON PARANOID IDEATIONS. P-ENCOURAGE GROUPS, PROVIDE PSYCHIATRIST AN UPDATE IN AM, ADMINISTER MEDICATIONS PER ORDERS
--- NOTE | 2019-02-22 23:57 | NUR ---
PT REFUSED HS SNACK.
--- NOTE | 2019-02-23 04:07 | NUR ---
24 HR chart check completed.
--- NOTE | 2019-02-23 04:07 | NUR ---
PT RESTING QUIETLY IN BED.
--- NOTE | 2019-02-23 05:42 | NUR ---
PT SLEPT PAST 2300, REMAINS IN BED AT THIS TIME.
[2019-02-23 06:45] LABS: BASO % 0.4 % (0.0-1.0); EOS # 0.1 10*3/uL (0.0-0.4); EOS % 0.6 % (1.0-4.0); HEMATOCRIT 37.3 % (37.0-47.0); HEMOGLOBIN 12.1 g/dl (12.0-16.0); LYMPH % 12.2 % (27.0-41.0); MEAN CELL VOLUME 97.4 fl (81.0-99.0); MEAN CORPUSCULAR HGB 31.6 pg (27.0-31.0); MEAN CORPUSCULAR HGB CONC 32.4 g/dl (33.0-37.0); MEAN PLATELET VOLUME 11.1 fl (9.6-12.3); MONO # 0.5 10*3/uL (0.1-1.0); MONO % 5.6 % (3.0-9.0); NEUT # 6.5 10*3/uL (2.3-7.9); NEUT % 80.9 % (47.0-73.0); PLATELET COUNT AUTOMATED 224 10*3/uL (130-400); RED BLOOD COUNT 3.83 10*6/uL (4.10-5.10)
[2019-02-23 07:48] VITALS: BP 107/87
--- NOTE | 2019-02-23 08:00 | NUR ---
Treatment Plan meeting with Dr. Marti, RN, AT, SW and Profiling Machine Operator. Plan for discharge at the end of the week, beginning of next week. Pt. will return home with her .
--- NOTE | 2019-02-23 08:00 | NUR ---
PT SITTING IN QUIET ROOM, VISIBLY SHAKING. PT STATES SHE WOKE UP LIKE THIS, VOICING PARANOID DELUSIONS ABOUT POLICE COMING TO TAKE HER OFF THE FLOOR AND OUT OF HER HOME. PT BECOMING MORE UPSET CONVERSATION PROGRESSES. ATTEMPTS TO CALM PT INEFFECTIVE, PT CLOSED OFF TO REDIRECTION AND PRESENTATION OF REALITY. VS STABLE.
--- NOTE | 2019-02-23 08:06 | NUR ---
DR. ZHAO ON UNIT TO ASSESS PT AT THIS TIME. STATES HE BELIEVES THAT IT MAY BE MORE PSYCHOLOGICAL. WILL ORDER LABS AND EKG TO R/O ORGANIC CAUSES.
--- NOTE | 2019-02-23 08:08 | NUR ---
Bedside Blood Glucose 123
--- NOTE | 2019-02-23 08:20 | NUR ---
DR. CABRAL ON UNIT TO ASSESS PT. STATES TO GIVE BENADRYL 50MG IM NOW, TO HELP REDUCE PT SHAKING. ORDER PLACED.
--- NOTE | 2019-02-23 08:38 | NUR ---
PT IN QUIET ROOM, EYES CLOSED WITH LIGHTS OFF PER REQUEST. PT CONTINUES TO SHAKE, HOWEVER MUCH MILDER AT THIS TIME. PT LEFT TO DESTIMULATE.
[2019-02-23 08:42] LABS: CREATININE 1.38 mg/dL (0.55-1.02); POTASSIUM 4.1 mmol/L (3.5-5.1)
--- NOTE | 2019-02-23 09:10 | NUR ---
DR. ZHAO MADE AWARE OF LAB RESULTS
--- NOTE | 2019-02-23 10:20 | NUR ---
DR. HARRIS AND TEAM ON UNIT TO ASSESS PT.
--- NOTE | 2019-02-23 10:55 | NUR ---
DR. ZHAO NOTIFIED OF EKG RESULTS. DR. ZHAO ON UNIT TO ASSESS PT. N.O. TWO MORE TROPONIN CYCLES.
--- NOTE | 2019-02-23 11:45 | NUR ---
The patient has no complaints and is resting comfortably. Respirs easy, even on room air. no s/s of distress or discomfort. JANNET WILLIAMSON
--- NOTE | 2019-02-23 11:47 | NUR ---
AM GROUP/EXERCISES PT DID NOT ATTEND MORNING GROUP THERAPY. PT WAS RESTING IN A QUIET ROOM.
--- NOTE | 2019-02-23 15:27 | NUR ---
Around 07:40 this AM, this telegraphic typewriter operator chief saw pt walking toward her. Pt stated that she did not feel well. Assisted pt into the quiet room. Pt's entire body was shaking. Pt appeared pale. Pt continued to state that she did not feel well. Per pt request, brought her water but pt did not drink. Left pt and informed nursing of pt's presentation. Returned to pt. Pt stated that she knew the police were coming for her but then questioned how she could go with them feeling like she does. Reassured pt that she was not going anywhere. Pt closed her eyes and reclined in the sofa.
--- NOTE | 2019-02-23 15:40 | NUR ---
PM GROUP/ART AND MUSIC PT DID NOT ATTEND AFTERNOON GROUP THERAPY. PT WAS IN BED RESTING.
--- NOTE | 2019-02-23 17:38 | NUR ---
PT CALMER AT THIS TIME. STATES SHE FEELS BETTER, NO VOICED PARANOID DELUSIONS. PT ASKED HOW MUCH LONGER SHE HAD TO BE HERE, ADVISED OF POSSIBLE DISCHARGE END OF WEEK OR BEGINNING OF NEXT. PT STATES "OH REALLY? THAT'S A LONG TIME". PT EDUCATED ON MEDICATIONS, SIDE EFFECTS, AND RESULTS FROM TODAY'S LAB WORK. PT VERBALIZED UNDERSTANDING.
--- NOTE | 2019-02-23 17:40 | NUR ---
Shift chart check completed.
[2019-02-23 20:00] VITALS: BP 102/64
--- NOTE | 2019-02-23 22:30 | NUR ---
Patient alert and oriented to person and place. Patient has severe paranoia and thought insertion noted. Patient overhears conversations and thinks they are about her. Patient needs frequent redirection. Provided 1:1 with patient for emotional support. Patient compliant with medications without any difficulty. Plan to continue to encourage medication compliance and to continue to provide 1:1 for emotional support. Continue to redirect and set boundaries when needed and appropriate. Q 15minute safety checks continued and maintained. See [facility] flowheet for further documentation.
--- NOTE | 2019-02-24 00:35 | NUR ---
24 HR chart check completed.
--- NOTE | 2019-02-24 05:43 | NUR ---
Patient slept approx. 8 hours throughout shift. Q 15 minute safety checks continued and maintained.
--- NOTE | 2019-02-24 07:05 | NUR ---
AWARE OF DISCHARGE TO [facility] AND CONDITION LEADING UP TO RAPID RESPONSE CALL. STATES TO CONTINUE KLONOPIN, LUVOX AND CLOZARIL UPON DISCHARGE.
--- NOTE | 2019-02-24 07:05 | NUR ---
Called and notified Dr. Estevez regarding patient's vital signs 103.0 orally 88-99,22 110/54 pulse ox 92% on room air. Also notified him regarding patient's garbled speech and altered mental status. Dr. Estevez said he would come to see patient.
--- NOTE | 2019-02-24 07:11 | NUR ---
Rapid response was called. Rapid Response team came. Dr. Alfonso gave order to transfer patient to [facility] bed 1 for Sepsis.
[2019-02-24] MEDS ORDERED: COGENTIN0.5 MG PO (07:19)
[2019-02-24] MEDS ORDERED: KLONOPIN1 M1 PO (07:20)
--- NOTE | 2019-02-24 07:20 | NUR ---
Patient discharged to [facility] bed [address] Alfonso's order. Nurse to nurse report given to Rocio Jacob at bedside.
[2019-02-24] MEDS ORDERED: FLUVOXAMINE50 MG PO (07:21)
[2019-02-24] MEDS ORDERED: CLOZARIL100 MG PO ×2 (07:21→07:24)
[2019-02-24] MEDS ORDERED: KLONOPIN2 M1 PO (07:24)
[2019-02-24] MEDS ORDERED: FLUVOXAMINE100 MG PO (07:24)
[2019-02-24] MEDS ORDERED: PRILOSEC20 M1 PO (07:25)
--- NOTE | 2019-02-24 07:29 | NUR ---
UPDATED AND MADE AWARE OF DISCHARGE TO MEDICAL UNIT.
--- NOTE | 2019-02-24 07:50 | NUR ---
ON UNIT, STATES TO CONTACT [facility] AND GAVE VERBAL ORDER FOR STAT CPK TOTAL AND MUSCLE. ALSO STATES TO D/C INVEGA SUSTENNA. VERBAL ORDER FOR LABS GIVEN TO MICHELLE [facility] RN AND UPDATE ON D/C OF TANVI BLOOM GIVEN TO DAPHNEY [facility] RN.
--- NOTE | 2019-02-24 10:08 | NUR ---
DR. CABRAL CALLED IN STATED TO TELL [facility] TO HOLD CLOZARIL. [facility] NURSE EDU NOTIFIED.
[2019-03-01] MEDS ORDERED: LORAZEPAM1 MG PO (09:46)
[2019-03-01] MEDS ORDERED: DOXYCYCLINE MO100 M1 PO (09:46)
== END 2019-02-24 07:30 | disposition short-term general hospital (02) | DRG 885 ==
LOC: 3N 18:46
PROVIDERS: Nurse Practitioner Women's Health; Student in an Organized Health Care Education/Training Program; ADMIT Psychiatry & Neurology Psychiatry
DX: F25.0 Schizoaffective disorder, bipolar type (principal); F22 Delusional disorders; E55.9 Vitamin D deficiency, unspecified; R00.1 Bradycardia, unspecified; N18.3 Chronic kidney disease, stage 3 (moderate); E66.09 Other obesity due to excess calories; D72.819 Decreased white blood cell count, unspecified; E87.8 Other disorders of electrolyte and fluid balance, not elsewhere classified; I12.9 Hypertensive chronic kidney disease with stage 1 through stage 4 chronic kidney disease, or unspecified chronic kidney disease; F41.8 Other specified anxiety disorders; Z68.38 Body mass index [BMI] 38.0-38.9, adult

== ENCOUNTER 2019-07-24 08:17 | Inpatient (IN) | payer OTHER ==
[~2019-07-24] VITALS: Ht 149.8 cm; Wt 78.2 kg
--- NOTE | ~2019-07-24 | PR ---
[place], [place] PROGRESS NOTE NAME: MARYLU RIVAS UNIT #: [id number] ROOM: 316 DOCTOR: HAYLEY CABRAL MD BIRTHDATE: [birth year] DOS: 07/30/2019 INTERVAL NOTE CHIEF COMPLAINT: "I sleep better last night, Dr. Cabral." SUMMARY OF THE VISIT: The patient was interviewed as she was sitting eating her breakfast. She was in a room with another male patient who had already finished his breakfast. She was much more relaxed and conversant and her conversation was more goal directed on us helping her find an alternative living situation. At no point in my conversation, did she bring up the fear that the police or FBI were out to get her. There was no paranoia voiced in fact and she seems much more relaxed and pleasant than she had been at the early part of her stay. She also convincingly reports no side effects other than some mild sedation, which she is able to tolerate. MENTAL STATUS: She is alert and oriented. Mood does seem to be strongly trending towards euthymia. Affect is much more appropriate. Speech rate and pattern is within normal limits. I do not see the presence of hypomania or benjie at the present time, her paranoia and psychosis does seem to be coming under control. Short, intermediate, and long-term memory for the most part are intact. PLAN: At this point in time, she does seem to be gaining improvements with the current medication regimen, which includes Nuplazid, Klonopin and Vistaril. I do not see any evidence of side effects and at this point, we will maintain this current psychotropic regimen to see if these benefits continue to improve on themselves. I will check a valproic acid level in the morning on 08/01/2019 to ensure that it remains therapeutic and not becomes toxic. We will engage in individual and stallworth milieu activity, returning then to the least restrictive environment when psychiatrically stable. HAYLEY CABRAL MD CM:PNTRANS [id number] HAYLEY CABRAL MD 07/31/19124 interface
--- NOTE | ~2019-07-24 | PR ---
[place], [place] PROGRESS NOTE NAME: MARYLU RIVAS UNIT #: [id number] ROOM: 316 DOCTOR: HAYLEY CABRAL MD BIRTHDATE: [birth year] DOS: 07/28/2019 CHIEF COMPLAINT: "You are a straight shooter Dr. Cabral. You would tell me honestly if they were talking about me." SUMMARY OF THE VISIT: Of note, the patient was interviewed as she was sitting in the quiet room by herself eating breakfast. This was the first time I have seen her out of her room. As I approached, she seemed much calmer and much less in distress. Well, she once again asked me if there was talk of her in the hospital. She seemed to derail off of this much more easily and engaged in conversation unrelated to her paranoia. She seemed to be able to engage more readily making better eye contact. She did not look as distraught or distressed that she had been previously. She convincingly denies medication side effects reporting slightly better sleep, improved appetite and overall an improved outlook. MENTAL STATUS: She is alert and oriented to person, place and time. Mood does seem to be strongly trending towards euthymia at the present. Her paranoia, while still present, does seem to be less intense and less frequently brought out. There are no overt auditory or visual hallucinations noted. No benjie or hypomania is present. Memory for the most part is intact. PLAN: At the present time, I will continue her current regimen of medications as benefit does seem to be occurring with the absence of side effects. We will continue to engage in individual and stallworth milieu activities when appropriate. Continue to support and monitor, returning to the least restrictive environment when psychiatrically stable. HAYLEY CABRAL MD CM:PNTRANS 0 HAYLEY CABRAL MD 07/29/194 interface
--- NOTE | ~2019-07-24 | WRIGHTHP ---
[place], [place] PATIENT HISTORY AND PHYSICAL EXAM NAME: MARYLU RIVAS UNIT #: [id number] ROOM: 316 DOCTOR: MALCOLM ROBERTSON CNP BIRTHDATE: [birth year] DOS: 07/25/2019 CHIEF COMPLAINT: "I am having a lot of paranoia, little loneliness and a lot of depression." HISTORY OF PRESENT ILLNESS: This is a 53-year-old female with past medical history of anxiety, depression with psychotic features, paranoid behavior, psychosis and schizophrenia, who presented to the Emergency Department via private vehicle complaining of paranoia. The patient at that time denied any homicidal or suicidal ideations. Once the patient was medically cleared, it was decided to admit the patient to the Behavioral Health Unit to rule out any further organic factors and to attempt to stabilize the patient on medication. The patient does have a history of neuroleptic malignant syndrome and has currently only been taking Ativan. The patient was started on Depakote 250 mg 3 times a day after consultation with Dr. Marti. VPA level has been ordered for 07/27/2019. The patient reports that when the phone lines open, she wants to call her . She reports that she does not know that this facility is the right place for her. She does not know what the right places, but thinks that maybe she needs to relocate. She reports that she has had a lot of things happen in her life that medication cannot fix. The patient does deny any suicidal or homicidal ideations. We will continue to encourage the patient to engage in individual and stallworth milieu activity. We will continue fall and safety precautions and plan to return the patient to the least restrictive environment when she is considered psychiatrically stable. PAST MEDICAL HISTORY: Remarkable for acute respiratory failure, anxiety, acute renal failure, obesity, bronchial pneumonia, chronic kidney disease, hypertension, generalized anxiety disorder, gastroesophageal reflux disease, hyperglycemia, hypophosphatemia, hypotension, leukocytosis, metabolic encephalopathy, major depression with psychotic features, neuroleptic malignant syndrome, obesity, paranoia, schizophrenia, rhabdomyolysis, sepsis, tachycardia, transaminitis, urinary tract infection and vitamin D deficiency. SOCIAL HISTORY: The patient does not drink alcohol. She does not use illicit drugs and she does not use tobacco products. STRENGTHS: The patient is ambulatory and has good verbal skills. WEAKNESSES: Poor coping skills, limited support system. MENTAL STATUS: The patient is alert and oriented to person, place and time. She was pleasant and cooperative with me. No overt benjie or hypomania noted. No delusions or paranoia noted at this time. No auditory or visual hallucinations noted. The patient's mood is depressed. Her affect flat, tearful at times. Her judgment and insight are poor. Her short and long-term memory are intact. Thought processes are circumstantial. DIAGNOSIS: Brief psychotic disorder. PLAN: Consulted with Dr. Marti due to the patient's history of neuroleptic [place], [place] PATIENT HISTORY AND PHYSICAL EXAM NAME: MARYLU RIVAS UNIT #: [id number] ROOM: [facility] DOCTOR: MALCOLM ROBERTSON CNP BIRTHDATE: [birth year] malignant syndrome. We will start the patient on Depakote 250 mg 3 times a day. VPA level ordered for Friday. We will continue to encourage the patient to engage in individual and stallworth milieu activity. Continue fall and safety precautions. Plan is to return the patient to the least restrictive environment when she is considered psychiatrically stable. Malcolm Robertson CNP CM:HISPHYS:PATIENT HISTORY AND PHYSICAL EXAMINATION [id number] MALCOLM ROBERTSON CNP 09/06/19 0837 interface
--- NOTE | ~2019-07-24 | DS ---
[place], [place] DISCHARGE SUMMARY NAME: MARYLU RIVAS UNIT #: [id number] ROOM: 316 DOCTOR: HAYLEY CABRAL MD BIRTHDATE: [birth year] DOS: 08/02/2019 CHIEF COMPLAINT: "I am having a lot of paranoia, a little loneliness and a lot of depression." HISTORY OF PRESENT ILLNESS: This is a 53-year-old white female with a lengthy history of schizoaffective disorder, well known to me because of previous admissions here to the [facility] Unit. The patient presented to the Emergency Room at [facility] via private vehicle complaining of increased paranoia. At that time, the patient denied any homicidal or suicidal ideation, but was found to be extremely paranoid and delusional. Of note, the patient has a positive history of neuroleptic malignant syndrome in the past. The patient was admitted then to the U for crisis stabilization and to rule out any organic factors while engaging in individual and stallworth milieu activity. SUMMARY OF HOSPITAL COURSE: The patient was admitted to the unit where she was started on Depakote 250 mg 3 times daily in an effort to decrease some of the mood lability. 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 This drug was utilized because it did not affect dopamine and it was hoped it would have less of a risk of inducing neuroleptic malignant syndrome. Additionally, the patient was started on Klonopin 0.5 mg twice a day and 1 mg at bedtime. Over the course of her stay, the Depakote was increased to 500 mg 3 times a day while the Klonopin was increased to 1 mg twice a day and 2 mg at bedtime to decrease her overriding anxiety and to stabilize her mood. With this combination of medication, the patient did improve dramatically. She went from sleeping on the floor in her room to being able to sleep in the bed. She also went from isolating herself completely in her room to being able to come out and eat her meals on the unit and engage in minimal group activities. While still having some residual paranoia, she was able to deflect off this topic from [id number] and engage in more normal conversation. She tolerated the medication regimen well without any apparent sedation, somnolence, extrapyramidal symptoms or tardive dyskinesia. The patient had improved sufficiently to return home. MENTAL STATUS AT DISCHARGE: The patient is alert and oriented to person, place and time. Mood does seem to be more euthymic. There is still some anxiety, but this is much less. There is not any presence of hypomania or benjie. There are still some residual paranoia, but again this is less intense and less frequent. Memory for the most part is intact. FINAL DIAGNOSIS: Schizoaffective disorder. DISPOSITION: All of her prescriptions have been printed. She will be given samples of Nuplazid to take home with her while we obtain any prior authorization for the Nuplazid as an outpatient. She was discharged home. [place], [place] DISCHARGE SUMMARY NAME: MARYLU RIVAS UNIT #: [id number] ROOM: [facility] DOCTOR: HAYLEY CABRAL MD BIRTHDATE: [birth year] HAYLEY CABRAL MD CM:DISCHARG [id number] HAYLEY CABRAL MD 08/02/19 1826 interface
--- NOTE | ~2019-07-24 | PN ---
[place], [place] PROGRESS NOTE NAME: MARYLU RIVAS UNIT #: [id number] ROOM: 316 DOCTOR: HAYLEY CABRAL MD BIRTHDATE: [birth year] DATE: 07/29/19 DR. CABRAL ADDENDUM 08/16/19 1200: Resident note reviewed. Agree with observations, recommendations, and overall treatment plan. HAYLEY CABRAL MD CM:PNTRANS 1200 1244 HAYLEY CABRAL MD 08/16/19 1244 HOMER ALMARAZ [email or web address].LLR
--- NOTE | ~2019-07-24 | PN ---
[place], [place] PROGRESS NOTE NAME: MARYLU RIVAS UNIT #: [id number] ROOM: 316 DOCTOR: HAYLEY CABRAL MD BIRTHDATE: [birth year] DATE: 07/26/19 DR. CABRAL ADDENDUM 08/16/19 1200: Resident note reviewed. Agree with observations, recommendations, and overall treatment plan. HAYLEY CABRAL MD CM:PNTRANS 1200 1243 HAYLEY CABRAL MD 08/16/19 1243 HOMER ALMARAZ MIS.LLR
--- NOTE | ~2019-07-24 | PN ---
[place], [place] PROGRESS NOTE NAME: MARYLU RIVAS UNIT #: [id number] ROOM: 316 DOCTOR: HAYLEY CABRAL MD BIRTHDATE: [birth year] DATE: 07/27/19 DR. CABRAL ADDENDUM 08/16/19 1200: Resident note reviewed. Agree with observations, recommendations, and overall treatment plan. HAYLEY CABRAL MD CM:PNTRANS 1200 1244 HAYLEY CABRAL MD 08/16/19 1244 HOMER ALMARAZ MIS.LLR
[~2019-07-24 08:17] MED LIST changes: +CLOZARIL100 MG PO; +COGENTIN0.5 MG PO; +DOXYCYCLINE MO100 M1 PO; +FLUVOXAMINE100 MG PO; +KLONOPIN1 M1 PO; +KLONOPIN2 M1 PO; +PRILOSEC20 M1 PO
[2019-07-24 08:18] VITALS: BP 148/78; BP 148/8
[2019-07-24 09:00] LABS: BASO % 0.7 % (0.0-1.0); EOS # 0.1 10*3/uL (0.0-0.4); EOS % 1.7 % (1.0-4.0); HEMATOCRIT 40.6 % (37.0-47.0); HEMOGLOBIN 13.1 g/dl (12.0-16.0); LYMPH % 17.3 % (27.0-41.0); MEAN CELL VOLUME 88.1 fl (81.0-99.0); MEAN CORPUSCULAR HGB 28.4 pg (27.0-31.0); MEAN CORPUSCULAR HGB CONC 32.3 g/dl (33.0-37.0); MEAN PLATELET VOLUME 10.4 fl (9.6-12.3); MONO # 0.6 10*3/uL (0.1-1.0); MONO % 9.4 % (3.0-9.0); NEUT # 4.1 10*3/uL (2.3-7.9); NEUT % 70.6 % (47.0-73.0); PLATELET COUNT AUTOMATED 256 10*3/uL (130-400); RED BLOOD COUNT 4.61 10*6/uL (4.10-5.10); WHITE BLOOD COUNT 5.9 10*3/uL (4.8-10.8)
[2019-07-24 09:12] LABS: BILIRUBIN NEGATIVE (NEGATIVE); BLOOD NEGATIVE (NEGATIVE); CLARITY CLEAR (CLEAR); COLOR YELLOW (YELLOW); GLUCOSE NEGATIVE (NEGATIVE); KETONE NEGATIVE (NEGATIVE); LEUKO ESTERASE 1+ (NEGATIVE); NITRITE NEGATIVE (NEGATIVE); SPECIFIC GRAVITY <= 1.005 (1.005-1.030); UROBILINOGEN 0.2 E.U./dl (0.2-1.0)
[2019-07-24 09:19] LABS: ALBUMIN 4.1 gm/dl (3.1-4.5); ALKALINE PHOSPHATASE 70 U/L (45-117); BUN 18 mg/dl (7-24); CHLORIDE 104 mmol/L (98-107); CREATININE 1.07 mg/dL (0.55-1.02); POTASSIUM 3.4 mmol/L (3.5-5.1); SGOT/AST 11 IU/L (3-35); SGPT/ALT 21 U/L (12-78); SODIUM 139 mmol/L (136-145); TOTAL PROTEIN 8.1 gm/dL (6.4-8.2)
[2019-07-24 09:22] LABS: URINE AMPHETAMINES < 1000 (1000ng/ml); URINE BARBITURATES < 200 (200ng/ml); URINE BENZODIAZEPINES < 200 (200ng/ml); URINE CANNABINOIDS (THC) < 50 (50ng/ml); URINE COCAINE < 300 (300ng/ml); URINE METHADONE < 300 (300ng/ml); URINE OPIATES < 300 (300ng/ml)
[2019-07-24 09:32] LABS: BACTERIA 1+
[2019-07-24 09:40] LABS: ETHYL ALCOHOL < 3.0 mg/dl (<3)
[2019-07-24 09:40] LABS: URINE PHENCYCLIDINE < 25 (25ng/ml)
--- NOTE | 2019-07-24 10:03 | NUR ---
psychiatric assessment: met with client who is well known to me, she is very paranoid and distraugght, she is only taking ativan. she said she had a bad reaction to medications and so that is all that the PROFESSOR OF SPORT MANAGEMENT will give her now. client believes that she is in trouble with the law and she said that she is going to be arrested , she said that she was calling [employer] to try to get a bus schedule to go to [place]. she said that she feels that her neighbor is plotting against her. , she said that she feels like she wants to because she cant take it any longer. she is very upset, tearful. i did call and speak with [facility] staff and they have accepted her, they are just waiting for the medical clearance. discussed with dr wiseman and her nurse.
--- NOTE | 2019-07-24 10:58 | NUR ---
client is accepted to [facility] here, discussed with dr wiseman and her nurse.
--- NOTE | 2019-07-24 11:16 | NUR ---
PT REMAINS ANXIOUS/PARANOID. SHE IS ALERT. SHE WILL BE ADMITTED TO BHU HERE. WAITING FOR BED ASSIGNMENT. SOFÍA GAMINO
--- NOTE | 2019-07-24 11:22 | NUR ---
REPORT HAS BEEN GIVEN TO JANNET GAMINO ON [facility]. SOFÍA GAMINO
[2019-07-24 11:40] VITALS: BP 131/80; BP 131/86
--- NOTE | 2019-07-24 11:40 | NUR ---
MARYLU RIVAS Erika a 53 year old F admitted via wheel chair from the EMERGENCY ROOM as a voluntary admission. Arrived on unit at 1140. ALLERGIES: NKDA. Vital signs are: 97.7-73-16 131/86 SPO2 100%RA. The client signed the following forms with stated understanding: Authorization For The Release of Medical Information, Clothing List, Consent to Voluntary Admission and Hospitalization, Consent and Release Forms/Receipt of Rights, Acknowledgement of Advance Directive Information, Behavioral Health Consent Form, and Informed Consent of Medications. Admitted under the services of Dr. MISHA BRYAN,[facility]. A search was conducted and hazardous articles were removed. Client was oriented to the unit. JANNET ORTIZ
--- NOTE | 2019-07-24 12:30 | NUR ---
CALLED HOSPITALIST CELL NUMBER ONE, DR. ABBASI ANSWERED, MADE AWARE OF NEW CONSULT FOR MEDICAL MANAGEMENT
[2019-07-24] MEDS ORDERED: ATIVAN1 MG PO (13:24)
--- NOTE | 2019-07-24 14:15 | NUR ---
psychosocial hx completed this date.
--- NOTE | 2019-07-24 15:28 | NUR ---
The patient has no complaints and is resting comfortably. JANNET ORTIZ
--- NOTE | 2019-07-24 15:55 | NUR ---
PM/MUSIC/LEISURE SKILLS PT JUST ADMITTED TO UNIT A FEW HOURS AGO. PT SLEEPING IN ROOM AT THIS TIME. PT NICKO BE ASSESSED BY STAFF FOR ACTIVITY'S RIDDHI.
[2019-07-24 20:00] VITALS: BP 127/68
--- NOTE | 2019-07-25 00:39 | NUR ---
PT IN BED RESTING AT THIS TIME, AT BEGINING OF SHIFT, PT ISOLATED HERSELF IN HER ROOM TO "DECREASE THE SOUNDS AROUND HER" SHE WAS MEDICATION COMPLIANT, AWARE OF WHAT MEDICATIONS SHE IS TAKING. PT HEARD STAFF TALKING IN REFERENCE TO PHARMACY COMING WITH PAPER WORK, SHE RAN FROM HER ROOM TO THE NURSES STATION AND INTRUPTED CONVERSATION ASKING WITH RAMBLED RAPID SPEECH WHAT WE HAD BEEN TALKING ABOUT AND IF SHE WAS IN TROUBLE FOR SWITCHING FROM RISPERDAL TO DEPAKOTE, AND SHE THOUGHT "THEY WOULD BE MAD" BUT WAS UNABLE/UNWILLING TO STATE FURTHER WHO "THEY" WERE. CONTINUE TO REDIRECT WHEN POSSIBLE, PRESENT REALITY AND PROMOTE GOOD HYGEINE CARE. NO SI OR HI NOTED.
--- NOTE | 2019-07-25 05:54 | NUR ---
PT SLEPT 7 HOURS
[2019-07-25 07:36] LABS: THYROID STIM HORMONE (HS) 2.14 uIU/ml (0.358-4.75)
[2019-07-25 07:49] VITALS: BP 117/65
[2019-07-25 08:15] LABS: VITAMIN D, 25-HYDROXY 25.8 ng/mL (30-100)
--- NOTE | 2019-07-25 11:24 | NUR ---
DR. MAAGLLANES ON UNIT TO ASSESS PT, UPDATE PROVIDED.
--- NOTE | 2019-07-25 16:17 | NUR ---
P: PT PARANOID, THINKING STAFF AND PEERS ARE TALKING ABOUT HER AND LAUGHING. PT REPORTS HEARING VOICES AT TIMES. PT REFUSES TO PARTICIPATE IN GROUP/ACTIVITIES. PT REFUSING MEALS AT TIMES. I: PROVIDED EMOTIONAL SUPPORT AND 1:1 FOR PT TO VOICE FEELINGS, ENCOURAGE MED COMPLIANCE AND PROVIDE MED EDUCATION, ENCOURAGE GROUP PARTICIPATION AND SOCIALIZATION, ENCOURAGE PO INTAKE, PROVIDE RE-ORIENTATION AND PRESENT REALITY. R: PT CONTINUED TO REFUSE BREAKFAST, CONSUMED 10% OF LUNCH. PT CONTINUES TO REFUSE TO PARTICIPATE IN GROUP/ACTIVITIES. PT CONTINUES TO VOICE PARANOID THOUGHTS TO STAFF. PT ALERT TO PERSON, PLACE, TIME AND SITUATION. PT AMBULATORY THROUGHOUT UNIT, GAIT STEADY. PT CONTINENT OF BOWEL AND BLADDER. P: MONITOR PT BEHAVIORS ON Q15 MIN SAFETY CHECKS, ENCOURAGE MED COMPLIANCE AND PROVIDE MED EDUCATION, ENCOURAGE GROUP PARTICIPATION AND SOCIALIZATION, ENCOURAGE PO INTAKE, CONTINUE TO RE-ORIENT AND PRESENT REALITY.
[2019-07-25 20:00] VITALS: BP 108/62
--- NOTE | 2019-07-26 00:05 | NUR ---
P: PARANOIA, ANXIETY IN REFERENCE TO HER FUTURE, INABILITY TO DIFFERENTIATE REALITY AND PARANOID THOUGHT PROCESS, I: PT HAS BEEN PERMITTED TO HAVE EAR PLUGS ON THE UNIT TO DECREASE NOISES THAT SHE HEARS, PT HAS CHOSEN TO SLEEP ON THE FLOOR NEXT TO HER BED TO DISTANCE HERSELF FROM NOISES IN HALLWAY, STAFF HAS DECREASED ALL NOISES POSSIBLE AND REDIRECTED PT WHEN SHE HEARS NOISES THAT THEY ARE NOT IN REFERENCE TO HERE. R: PT ATTEMPTED TO LAY IN BED BUT STATED SHE WASN'T COMFORTABLE AND THE BED BETWEEN HER AND THE DOOR MADE HER FEEL SAFER, PT HAS BEEN MEIDCATION COMPLIANT BUT REPORTS THAT IT ISN'T HELPING MUCH AT THIS TIME. THIS NURSE SPENT TIME 1:1 WITH PATIENT WHILE SHE SPOKE ABOUT HOW SHE CANT' TELL WHEN IT ISN'T TRUE OR WHEN IT IS. SHE IS VERY FRUSTRATED WITH HER SITUATION AND HAS CONCERNS ABOUT HER FUTURE IF SOMETHING HAPPENS WITH HER . ALSO BECAUSE SHE DOENS'T KNOW IF SHE TRUELY CAN GET BETTER. P: CONTINUE TO ENCOURAGE PATIENT TO VOICE HER FEELINGS AND KEEP HER ORIENTED TO REALITY AND LET HER KNOW WHEN SHE IS HAVING A PARANOID THOUGHT. PT IS RECEPTIVE TO THE INFORMATION ONCE EXPLAINED THAT SOMETHING IS CREATED IN HER BRAIN AND NOT REALITY. CONTINUE TO MONITOR PER 15 MIN CHECKS
--- NOTE | 2019-07-26 06:07 | NUR ---
PT SLEPT 8 HOURS 24 HR chart check completed.
[2019-07-26 07:45] VITALS: BP 112/66
--- NOTE | 2019-07-26 08:15 | NUR ---
Treatment Plan meeting with Dr. Marti, RN, AT, SW and Relationship Specialist. Plan for discharge Next week. Pt. will return home at this point.
--- NOTE | 2019-07-26 11:43 | NUR ---
DR. HARRIS ON UNIT TO ASSESS PT, UPDATE PROVIDED.
--- NOTE | 2019-07-26 12:18 | NUR ---
AM GROUP ASSESSEMENT COMPLETED AND SPENT SOME 1:1 TIME WITH PT. PT VERY PARANOID. PT REFUSES ANY GROUP THERAPY. PT UNABLE TO ESTABLISH GOALS AT THIS TIME
--- NOTE | 2019-07-26 15:51 | NUR ---
Individual time spent with pt in her room this AM. Pt was sitting on the floor between the bed and the window. Pt stated that she feels safest there. Pt spoke of her paranoia and that she feels the need to leave the area. Discussed pt's paranoia in detail. Pt also expressed hopelessness. She stated that she is so tired of fighting her schizophrenia and that she is so lonely. Pt spoke of recognizing that her paranoia is not allowing her to have friends because of pt's mistrust of others. Empathized with pt and offered support. Pt displayed pressured speech and flight of ideas during the first part of interaction. There was improvement as conversation progressed with pt calming and staying on topic for longer periods of time. Pt voiced that she is depressed and anxious.
--- NOTE | 2019-07-26 15:58 | NUR ---
PM GROUP PT DID NOT ATTEND AFTERNOON GROUP THERAPY. PT IS UNABLE TO ATTEND AND PARTICIPATE AT THIS TIME DUE TO HIGH LEVEL OF PARANOIA.
--- NOTE | 2019-07-26 17:04 | NUR ---
P: PT ISOLATIVE TO ROOM THROUGHOUT THE DAY REFUSING TO COME OUT FOR MEALS OR PARTICIPATE IN GROUPS/ACTIVITIES. PT PARANOID, THINKING OTHERS ARE TALKING ABOUT HER AND OUT TO GET HER I: PROVIDE EMOTIONAL SUPPORT AND 1:1 FOR PT TO VOICE FEELINGS, ENCOURAGE MED COMPLIANCE AND PROVIDE MED EDUCATION, MONITOR PT BEHAVIORS ON Q15 MIN SAFETY CHECKS, ENCOURAGE GROUP PARTICIPATION AND SOCIALIZATION, ENCOURAGE PO INTAKE, PRESENT REALITY AND PROVIDE RE-ORIENTATION R: PT WILL COME TO QUIET ROOM FOR MEALS WITH MUCH ENCOURAGEMENT, PT HAS POOR APPEPTITE. PT CONTINUES TO VOICE PARANOID DELUSIONS THINKING OTHERS ARE TALKING ABOUT HER AND ARE OUT TO GET HER. PT ALSO STATING "I HAVE ALOT TO THINK ABOUTM I JUST DONT KNOW WHAT IS REAL ANYMORE". PT ALERT TO PERSON, PLACE AND TIME. PT MED COMPLIANT WITHOUT DIFFICULTY, MED EDUCATION PROVIDED. PT AMBULATORY THROUGHOUT UNIT, GAIT STEADY. PT CONTINENT OF BOWEL AND BLADDER. P: MONITOR PT BEHAVIORS ON Q15 MIN SAFETY CHECKS, ENCOURAGE MED COMPLIANCE AND PROVIDE MED EDUCATION, PROVIDE EMOTIONAL SUPPORT AND 1:1 FOR PT TO VOICE FEELINGS, PRESENT REALITY AND PROVIDE RE-ORIENTATION, ENCOURGE GROUP PARTICIPATION AND SOCIALIZATION, ENCOURAGE PO INTAKE.
[2019-07-26 19:41] VITALS: BP 110/67
--- NOTE | 2019-07-26 20:44 | NUR ---
EVENING/MUSIC TRIVIA/ART PT CHOSE NOT TO ATTEND BUT TO REMAIN IN ROOM ISOLATING AT THIS TIME. PT WILL CONTINUE TO BE ENCOURAGED TO ATTEND AND PARTICIPATE IN FUTRUE GROUP SESSIONS TO BEST OF PT ABILITY.
--- NOTE | 2019-07-26 21:34 | NUR ---
P--ISOLATIVE, DOESN'T WANT 1:1 , STAFF SPLITTING I--SAT IN ROOM WITH CLIENT TRYING TO HAVE 1:1 WHICH SHE STATES SHE WASN'T INTERESTED IN. DISCUSSED IMPORTANCE OF NOT ISOLATING SELF AND TO AT LEAST COME TO GROUP ROOM AND THAT SHE DIDN'T HAVE TO SOCIALIZE BUT LISTENING TO ALL THE OTHER CONVERSATIONS AND SOUNDS WILL HELP HER CUT OUT THE VOICES. STATES SHE WOULD TRY. TOLD ME SHE HEARD STAFF TELL ANOTHER PATIENT THAT MARYLU RIVAS CALLED THEM CRAZY. REINFORCED THAT WOULD NOT HAPPENED. ASKED WHO IT WAS THERE IS ONLY 3 STAFF MEMBERS HER. UNABLE TO IDENTIFY R--CLAIMING STAFF TALKING ABOUT HER TO OTHER PEERS BUT UNABLE TO IDENTIFY. I HAVE TO SLEEP ON THE FLOOR BECAUSE IT IS THE ONLY PLACE I FEEL SAFE. I WISH I COULD KEEP THE DOOR SHUT BUT I KNOW IT IS AGAINST THE RULES. I WEAR THE EARPLUGS TO HELP STOP THE VOICES. IF I NEED TO TALK I WILL LET YOU KNOW P--MONITOR FOR CHANGES IN BEHAVIOR/MOOD. PRESENT REALITY VS HALLUCINATION WHEN NEEDED. BE AVAILABLE TO GIVE EMOTIONAL SUPPORT. MONITOR Q 15 MINUTES AND PRN FOR SAFETY
--- NOTE | 2019-07-27 02:35 | NUR ---
HAS BEEN UP TO DESK MULTIPLE TIMES THINKING THE SECURITY GUARDS WERE AFTER HER. SAT WITH HER EARLIER IN QUIET ROOM TO DISCUSS HER FEARS AND TRY TO LEARN NEW COPING SKILLS. SHE JUST CAME TO WINDOW AND SAID SHE CALLED THE POLICE AND GAVE THEM HER SOCIAL SECURITY NUMBER AND THEY SAID THERE ARE NO WARRENTS OUT FOR HER SO IF SHE GOES HOME AND SHE IS ARRESTED SHE WILL KNOW IT WAS ME THAT CALLED THEM. SHE HAS SEEN THE POLICE/SECURITY HERE TONIGHT SO MANY TIMES AND SHE WAS GIVEN REASSURANCE THAT NO ONE IS GIVING OUT HER INFORMATION. SCANNING COORDINATOR Scott LABOY RN AT [facility] AND REINTERATED TO HER THAT IT IS ILLEGAL TO GIVE PRIVATE INFORMATION OUT.
--- NOTE | 2019-07-27 03:51 | NUR ---
PT CONTINUES TO COME TO THE DESK FREQUENTLY & VOICED PARANOID STATEMENT. GIVEN PRN VISTARIL 25 MG PO @ [phone].
--- NOTE | 2019-07-27 04:00 | NUR ---
CAME TO THIS RN OUT OF ROOM STATING "YOU DON'T UNDERSTAND THAT PILL ISN'T WORKING I NEED TO CALL MY " EXPLAINED IT TAKE 45 MIN. TO WORK AND SHE CAN CALL HER IN THE MORNING
--- NOTE | 2019-07-27 05:41 | NUR ---
SLEPT LESS THAN 2 HOURS. INCREASED PARANOIA ALL NIGHT. FLIGHT OF IDEAS. UNABLE TO COMPREHEND NEW COPING SKILLS. CONTINUE EMOTIONAL SUPPORT WHILE AWAKE
[2019-07-27 08:00] VITALS: BP 127/71
--- NOTE | 2019-07-27 08:02 | NUR ---
PT SITTING IN QUIET ROOM, EATING BREAKFAST. NO S/S OF DISTRESS NOTED. RESPS EVEN AND UNLABORED ON ROOM AIR.
--- NOTE | 2019-07-27 10:05 | NUR ---
PATIENT EXPERIENCING INCREASED PARANOIA AND AUDITORY HALLUCINATIONS. PT COMING UP TO STAFF AND STATING THAT SHE HEARS SOMEONE ON THE PHONE IN HER ROOM SAYING HER WHOLE NAME. PT STATED TO THIS NURSE "HOW DOES SOMEONE KNOW MY WHOLE NAME? WHY WOULD THEY BE TALKING ABOUT ME? I KNOW THAT DR. CABRAL CALLED THE POLICE ON ME. THAT OTHER NURSE IS OUT TO GET ME. I AM NOT A BAD PERSON". PT VOICING PARANOID THOUGHTS. 1:1 THERAPEUTIC INTERACTION PROVIDED, REASSURANCE, QUIET/LOW STIMULI ENVIRONMENT PROVIDED, REASSURE ON SAFETY, AND REALITY PRESENTATION PROVIDED. ALL NONPHARMALOGICAL INTERVENTIONS INEFFECTIVE. PT CONTINUES TO PACE FROM ROOM TO THE HALLWAY AND TO THE NURSES STATION. PT HEARD THE RADIO THAT IS AT THE NURSES STATION AND BELIEVED THEY WERE TALKING ABOUT HER. PT CAME UP TO THIS NURSE AND STATED "IS THERE ANYTHING THAT YOU CAN GIVE ME FOR THIS INCREASED PARANOIA. IT IS JUST MAKING ME SO ANXIOUS". PT REQUESTING AND RECEIVED AT THIS TIME PRN PO VISTARIL PER PRN ORDER. WILL CONTINUE TO MONITOR FOR EFFECTIVENESS.
--- NOTE | 2019-07-27 11:06 | NUR ---
PRN PO VISTARIL SLIGHTLY EFFECTIVE, PT IS NOT ANXIOUS. PT CONTINUES TO HAVE PARANOID DELUSIONAL THOUGHT PROCESS. 1:1 THERAPEUTIC INTERVENTION PROVIDED WITH SAFETY REASSURANCE, PRESENT REALITY OFTEN. PT VOICES UNDERSTANDING OF HAVING DELUSIONAL THOUGHTS AND KNOWS THAT IT IS ALL IN HER HEAD.
--- NOTE | 2019-07-27 11:34 | NUR ---
Treatment Plan meeting with Dr. Marti, RN, AT, SW and Transport Coordinator. Plan for discharge next week. Pt. will retur home.
--- NOTE | 2019-07-27 11:37 | NUR ---
DR. HARRIS AND TEAM ON FLOOR TO ASSESS PT, UPDATE PROVIDED.
--- NOTE | 2019-07-27 11:52 | NUR ---
AM GROUP/LESSONS FROM A [facility]REE PT DID NOT ATTEND MORNING GROUP THERAPY. PT IS UNABLE AT THIS TIME DUE TO HIGH LEVEL OF PARANOIA.
--- NOTE | 2019-07-27 11:56 | NUR ---
P- PARANOID DELUSIONAL THOUGHT PROCESS. AUDITORY HALLUCINATIONS. ANXIOUS; RESTLESS; PACING. REFUSE TO ATTEND/PARTICIPATE IN GROUP THERAPIES. ISOLATIVE TO SELF. VOICES BEING ANXIOUS/SAD. I- ASSESS MOOD, ORIENTATION, SI/HI, HALLUCINATIONS, DELUSIONS OR PAIN. 1:1 THERAPEUTIC INTERACTION WITH EMOTIONAL SUPPORT AND VENTILATION OF FEELINGS PROVIDED. PROVIDE WITH LOW STIMULI/LIGHT ENVIRONMENT. PRESENT WITH REALITY. REASSURE PT FREQUENTLY AND REASSURE PT OF SAFETY. REINTRODUCE STAFF MEMBERS AND REASSURE THAT THEY ARE TRYING TO HELP PT. PROVIDE WITH RELAXATION AND COPING TECHNIQUES. ACTIVE THERAPEUTIC LISTENING. ENCOURAGE TO ATTEND/PARTICIPATE IN GROUP THERAPIES FOR EMOTIONAL SUPPORT AND SOCIALIZING. R- ALERT AND ORIENTED X4. PT'S MOOD ANXIOUS. DENIES SI/HI OR PAIN. PT STATING THAT SHE IS HEARING SOMEONE ON THE PHONE IN HER ROOM CALLING OUT HER WHOLE NAME. PT STATING THAT SHE IS AFRAID THAT SOMEONE IS GOING TO PRESS CHARGES ON HER, PT BELIEVED THAT DR. CABRAL AND ANOTHER STAFF MEMBER CALLED THE POLICE ON HER. PT ASKING IF STAFF CAN LOOK UP HER SOCIAL SECURITY NUMBER AND MAKE SURE THAT THERE ARE NOT CHARGES PENDING AGAINST HER. PT PACING FROM HER ROOM, TO THE NURSES STATION, TO THE QUIET ROOM, AND BACK TO HER ROOM. PT SITTING ON THE FLOOR ON THE OPPOSITE SIDE OF THE DOOR IN HER ROOM. REFUSE TO ATTEND/PARTICIPATE IN GROUP THERAPY, PT STANDING OUTSIDE THE DOOR OF GROUP AND STATED "THERE ARE TO MANY PEOPLE IN THERE FOR ME". PT STATED "DID YOU HEAR THAT, ARE THEY TALKING IN THERE? THEY ARE TALKING ABOUT ME I KNOW IT". REASSUREANCE AND REALITY ORIENTATION EFFECTIVE FOR A SHORT AMOUNT OF TIME. PT PARANOID ABOUT THE [place]KY[place]KY LOCATED AT THE NURSES STATION FOR STAFF TO COMMUNICATE, PT STATED "DID YOU HEAR THAT? THEY ARE TALKING AGAIN". REALITY PRESENTATION EFFECTIVE FOR A SHORT AMOUNT OF TIME. 1:1 INTERACTION EFFECTIVE FOR A SHORT AMOUNT OF TIME. PT WILL EXPRESS UNDERSTANDING THAT SHE IS PARANOID AND IT IS ALL IN HER HEAD; A MINUTE LATER PT IS BACK TO EXPRESSING PARANOID THOUGHT PROCESS. PT REFUSING TO EAT MEALS IN THE DINING ROOM WITH PEERS, ONLY EATING MEALS IN QUIET ROOM BY HERSELF. EATING AND DRINKING ADEQUATELY. GAIT STEADY WHILE AMBULATING. MAKES NEEDS KNOWN. DENIES PAIN. NO S/S OF DISTRESS NOTED. RESPS EVEN AND UNLABORED ON ROOM AIR. DENIES SI/HI. PT UTILIZING COPING TECHNIQUE, DEEP BREATHING, WHEN ENCOURAGED. P- ASSESS MOOD, ORIENTATION, SI/HI, HALLUCINATIONS, DELUSIONS OR PAIN EVERY SHIFT. ENCOURAGE TO ATTEND AND PARTICIPATE IN GROUP THERAPIES FOR EMOTIONAL SUPPORT AND SOCIALIZATION. ENCOURAGE TO INTERACT WITH PEERS AND STAFF. PROVIDE 1:1 INTERACTION WITH EMOTIONAL SUPPORT AND VENTILATION OF FEELINGS WHEN NECESSARY. PROVIDE WITH THERPAUETIC LISTENING. REASSURE PT FREQUENTLY AND REASSURE PT OF SAFETY ON UNIT. REINTRODUCE PT TO STAFF AND REASSURE THEY ARE HELPING PT WITH HER CARE. REASSURE SAFETY OF UNIT. REORIENT TO UNIT AND UNIT RULES. Q15 MINUTE CHECKS MAINTAINED FOR SAFETY.
--- NOTE | 2019-07-27 12:21 | NUR ---
Pt requested that this adjusto writer operator check online to see if pt had any outstanding warrants. Provided pt with print-out showing 0 cases under pt's name. Pt spoke of her continued paranoia and her emotions because of the paranoia. Empathized with pt and provided support.
--- NOTE | 2019-07-27 12:40 | NUR ---
PT STATING THAT SHE FEELS NAUSEATED. PT REQUESTING AND RECEIVED AT THIS TIME PRN ZOFRAN PER PRN ORDER. WILL CONTINUE TO MONITOR FOR EFFECTIVENESS.
--- NOTE | 2019-07-27 13:11 | NUR ---
Shift chart check completed.
--- NOTE | 2019-07-27 13:37 | NUR ---
PT REQUESTING TO TALK TO THIS NURSE. 1:1 THERAPEUTIC INTERACTION PROVIDED IN A QUIET/LOW STIMULI ENVIRONMENT. PT STATED "I SEE ALL OF THESE PEOPLE TALKING IN THE DINING ROOM ABOUT ME AND I SEE PEOPLE GOING IN AND OUT OF THE PERSONS ROOM ACROSS FROM ME. I KNOW THEY ARE PLOTTING AND PLANNING SOMETHING AGAINST ME. I SEE THEM WITH PAPERS. WHAT AM I TO DO IF SOMEONE WERE TO GO AGAINST ME AND TRY TO TURN ME IN? HOW AM I TO DEFEND MYSELF? WOULD THEY BELIEVE ME OVER THE OTHER PERSON?". PROVIDED WITH ACTIVE LISTENING AND THERAPEUTIC COMMUNICATION. REASSURED PATIENT THAT SHE IS SAFE ON THIS UNIT AND NOBODY WOULD DO ANYTHING WITHOUT TELLING THE PATIENT ABOUT HER CARE. REASSURED PT THAT STAFF MEMBERS HAVE TO TALK TO OTHER PATIENTS ABOUT THEIR CARE. REASSURED THAT PATIENTS SITTING IN THE DINING ROOM WERE TALKING TO ONE ANOTHER, ATTENDING GROUP, AND WATCHING TV. REASSURED THAT NONE OF THE PATIENTS WERE TALKING ABOUT HER. ENCOURAGED PATIENT TO SIT WITH OTHER PEERS IN DINING ROOM AND ENCOURAGE INTERACTION, PT REFUSED AND STATED THAT THEIR ARE TO MANY PEOPLE. PT EXPRESSED THAT SHE HAS THESE PARANOID THOUGHTS AND HER INSTANT REACTION IS TO THINK THAT OTHERS ARE OUT TO GET HER. PT STATED THAT SHE IMMEDIATELY BELIEVES THAT OTHERS ARE TALKING ABOUT HER AND SHE CAN NOT TRUST ANYONE. PT STATED THAT SHE KNOWS THAT THIS NURSE IS TRYING TO PRESENT REALITY TO HER AND SHE UNDERSTANDS WHAT I AM SAYING, IT IS JUST HARD FOR TO STOP THINKING THE WAY THAT SHE DOES. REASSURED PT THAT ITS UNDERSTANDABLE THAT WHAT SHE IS THINKING IS SCARY AND WHAT SHE BELIEVES IS GOING ON. PT STATED THAT SHE FELT A LITTLE BETTER AFTER TALKING WITH THIS NURSE, PT STATED THAT SHE WAS GOING TO SIT IN THE DINING ROOM FOR A LITTLE BIT TO RELAX DUE TO BEING TIRED FROM PACING/STRESSING. PT CURRENTLY SITTING IN THE DINING ROOM WITH EYES CLOSED SITTING ON THE COUCH.
--- NOTE | 2019-07-27 13:51 | NUR ---
PT STATES THAT PRN ZOFRAN WAS EFFECTIVE. NO FURTHER COMPLAINTS AT THIS TIME.
--- NOTE | 2019-07-27 15:38 | NUR ---
Met with pt who expressed concern that staff is against her. Pt stated that she felt worse when she attempted to attend afternoon group because she believed that the patients were talking about her. Pt voiced that she feels everyone is mad at her. Pt also shared that she needs her room door shut to help drown out the voices that she hears in the halls and in the other pt rooms because pt believes that they are talking about her. Confirmed to pt that at this time group is not therapeutic for pt. This assembly instructions writer contacted Dr Marti who confirmed that he told pt this AM that she could keep her room door shut. Dr Marti also agrees with this assembly instructions writer that pt should not attend group unless it is pt's idea to do so. Will notify other [facility] staff of this.
--- NOTE | 2019-07-27 15:39 | NUR ---
PM GROUP/LEISURE INTERESTS PT CAME INTO GROUP AND NEEDED SOME 1:1. PT EXPRESSED PARANOIA AT THE TAKING PEOPLE INTO ROOMS AND TALKING TO THEM, BELIEVING THEY WERE TALKING ABOUT HER. PT WAS REASSURRED AND STATED, "I AM JUST SO TIRED. I CAN'T QUIET MY MIND AND I KNOW I AM DRIVING THEM CRAZY BUT I CAN'T HELP IT. I JUST KEEP THINKING THAT THEY ARE TALKING ABOUT ME" LISTENING TO WHITE NOISE WAS SUGGESTED AND MENTIONED TO PT NURSE. PT IS WILLING TO TRY ANY STRATEGY TO QUIET HER MIND
[2019-07-27 19:42] VITALS: BP 116/65
--- NOTE | 2019-07-27 20:21 | NUR ---
CALM AT THIS TIME. IN DININGROOM FOR SNACK AND TALKING TO ON PHONE
--- NOTE | 2019-07-27 20:51 | NUR ---
EVENING PT ATTENDED GROUP BEFORE SNACK TIME AND EXPRESSED CONCERNS WITH THIS STAFF THAT THE NURSES ARE OUT TO GET PT AND TO CALL THE RENTAL CLERK TOOL AND EQUIPMENT ON HER. THIS STAFF ATTEMPT TO GIVE PT WORDS OF COMFORT. PT THEN RECEIVED A PHONE CALL FROM HER . PT SMILING AND PLEASANT AFTER GETTING OFF THE PHONE. PT WENT BACK INTO ACTIVITY ROOM TO WATCH TV. PT WILL CONTINUE TO BE ENCOURAGED TO ATTND GROUP IF FEELING UP TO IT AND TO PARTICIPATE TO BEST OF ABIILTY.
--- NOTE | 2019-07-27 21:31 | NUR ---
P--PARANOIA, AUDIO HALLUCINATIONS, FEAR, HOPELESS/HELPLESS I--REVIEWED MEDICATIONS. EMOTIONAL SUPPORT. REVIEWED THAT IT IS A SMALL UNIT AND UNFORTUNATLY SHE IS GOING TO HEAR PARTS OF CONVERSATIONS AND BECAUSE SHE IS PARANOID SHE MAY THINK THEY ARE TALKING ABOUT HER. PROMISED CLIENT IF I HEARD ANYTHING I WOULD BE THE FIRST TO LET HER KNOW R--ARE PEOPLE TALKING ABOUT ME. I HEARD SOMEONE SAY THEY WERE TURNING ME IN FOR SOMETHING ABOUT THEIR MOTHER. I HAVE THE RIGHT TO DEFEND MYSELF. YOU PROMISE TO TELL ME IF PEOPLE ARE ACCUSING ME P--CONTINUE EMOTIONAL SUPPORT. MONITOR FOR CHANGES IN BEHAVIOR/MOOD. CLIENT TOOK SHOWER AND WASHED HAIR
--- NOTE | 2019-07-27 22:51 | NUR ---
WATCHING TV. C/O FEELING ANXIOUS. VISTARIL PROVIDED AT HER REQUEST
--- NOTE | 2019-07-27 23:33 | NUR ---
CLIENT CURRENTLY SLEEPING IN DININGROOM.
--- NOTE | 2019-07-28 00:37 | NUR ---
24 HR chart check completed.
--- NOTE | 2019-07-28 01:04 | NUR ---
client ambulated to her room to sleep
--- NOTE | 2019-07-28 05:55 | NUR ---
SLEPT WELL PAST 2315PM WITH FEW INTERUPTIONS.
[2019-07-28 07:36] VITALS: BP 125/66
--- NOTE | 2019-07-28 08:00 | NUR ---
Treatment Plan meeting with Dr. aMrti, RN, AT, SW and Sound Effects Technician. Plan for discharge next week. Pt. will return home with her .
--- NOTE | 2019-07-28 11:00 | NUR ---
P: DEPRESSED MOOD: PATIENT EXPRESSING FEELING OF BEING LONELY, SAD, DEPRESSED AND ANXIOUS. PATIENT STATES "I ALWAYS HER THE VOICES CALLING MY NAME" PATIENT LIKES HER DOOR CLOSED TO HELP WITH FROM HEARING OTHER PEOPLE'S VOICES. PATIENT REQUESTING FOR VISTARIL. I: ONE ON ONE PROVIDED TO EXPRESSED FEELING AND TO VALIDATE IF PATIENT'S THOUGHTS ARE REAL. ENSURED PATIENT OF BEING SAFETY. ASSIST PATIENT WITH DEVELOPING COPING SKILLS TO HELP ALLEVIATE ANXIETY. R: PRN VISTARIL 25 MG GIVEN PER REQUEST. PATIENT IS ALERT TO PERSON, PLACE, TIME AND SITUATION; ABLE TO VOICE NEEDS. MOOD IS DEPRESSED AND ANXIOUS. DENIES ANY HI/SI OR PAIN. PATIENT ADMITS TO HAVING AUDITORY HALLUCINATIONS AND BEING PARANOID. PATIENT IS INDEPENDENT WITH ACTIVITIES OF DAILY LIVING, CONTINENT OF BOWEL AND BLADDER, SET UP FOR MEALS. INTAKES ARE IMPROVING. MEDICATION COMPLAINT WITH EDUCATION. Q 15 MINUTE SAFETY CHECKS. AMBULATORY WITH STEADY GAIT. P: CONTINUE TO MONITOR MOOD, ANXIETY, HALLUCINATION AND DELUSIONS; PROVIDE ONE ON ONE, ASSIST IN DEVELOPING COPING SKILL AND TO PRACTICE. ENSURE PATIENT THAT SHE IS SAFETY.
--- NOTE | 2019-07-28 11:15 | NUR ---
Occupational therapy orders received and chart reviewed. Patient was in her room upon OT arrival. Nursing present for observation only. Patient stated she does not need OT evaluation and treatment. Per discussion with patient and nursing, patient has good balance, independent ADLs, and independent mobility/transfers. Patient to be discharged from occupational therapy services at this time. Thank you for the referral. Shanel Keen, OTR/L
--- NOTE | 2019-07-28 11:15 | NUR ---
PHYSICAL THERAPY PT orders received and chart reviewed. Pt is independent with ambulation and all functional mobility. Will not need any PT services. PT services to be discharged. Thank you Sheron Baxter, PT, DPT
--- NOTE | 2019-07-28 11:40 | NUR ---
PRN VISTARIL EFFECTIVE, PATIENT HAS A CALM DEMEANOR, NO PACING NOTED. CONTINUE TO MONITOR MOOD.
--- NOTE | 2019-07-28 11:52 | NUR ---
AM GROUP PT IS UNABLE TO ATTEND GROUP THERAPY AT THIS TIME DUE TO HIGH LEVEL OF PARANOIA.
--- NOTE | 2019-07-28 15:36 | NUR ---
Shift chart check completed.
--- NOTE | 2019-07-28 15:39 | NUR ---
Met with pt's Ricardo after he visited with pt. Ricardo stated that pt appears to be calmer. Ricardo stated that pt was also able to recognize this. Ricardo shared that pt continues to be very paranoid. He added, "I buy into it and it's not good for either one of us." Ricardo asked about pt's discharge date. This health technical writer informed him that it has not yet been determined.
--- NOTE | 2019-07-28 15:41 | NUR ---
PM GROUP PT IS UNABLE TO ATTEND GROUP THERAPY AT THIS TIME DUE TO HIGH LEVEL OF PARANOIA
[2019-07-28 19:24] VITALS: BP 125/62
--- NOTE | 2019-07-28 21:07 | NUR ---
AT 2043PM SPOUSE CALLED. MARYLU REFUSED TO SPEAK TO HIM AND SAID SHE WOULD CALL HIM TOMORROW SHE DOESN'T FEEL GOOD 2106- ZOFRAN GIVEN FOR C/O NAUSEA. STATES SHE HAS DIARRHEA. TOLD NOT TO FLUSH THE NEXT TIME SO I CAN SEE. VERBALIZED UNDERDSTANDING. STATES DAY WAS OK BUT DOESN'T WANT TO TALK. ENCOURAGED HER TO CALL OUT IF SHE NEEDED ANYTHING
--- NOTE | 2019-07-28 21:55 | NUR ---
P--PARANOIA, LOW SELF ESTEEM, HOPELESS I--MEDICATED FOR NAUSEA. OFFERED 1:1 PROVIDED EMOTIONAL SUPPORT. ENCOURAGED HER TO SEEK OUT STAFF FOR ANY ISSUES. DISCUSSED MEDICATIONS R- I FEEL A LITTLE BETTER MENTALLY JUST MY BODY FEELS SICK. THE MEDICINE FOR THE NAUSEA HELPED A LITTE. I AM HAVING MUSHY STOOLS. P--EMOTIONAL SUPPORT, CONFIDENCE, MONITOR FOR CHANGES IN BEHAVIOR/MOOD. BE AVAILABLE TO TALK
--- NOTE | 2019-07-29 04:04 | NUR ---
24 HR chart check completed.
--- NOTE | 2019-07-29 06:00 | NUR ---
SLEPT WELL THIS SHIFT WITH FEW INTERUPTIONS.SLEPT FROM [id number] THEN BACK TO SLEEP 0000-6AM. NO FURTHER C/O OF NAUSEA OR DIAREHA
--- NOTE | 2019-07-29 07:50 | NUR ---
PT SITTING IN QUIET ROOM, EATING BREAKFAST. NO S/S OF DISTRESS NOTED. RESPS EVEN AND UNLABORED ON ROOM AIR.
[2019-07-29 08:00] VITALS: BP 108/56
--- NOTE | 2019-07-29 11:15 | NUR ---
DR. HARRIS ON UNIT TO ASSESS PATIENT.
--- NOTE | 2019-07-29 11:56 | NUR ---
AM GROUP PT IS UNABLE TO ATTEND GROUP THERAPY AT THIS TIME DUE TO HIGH LEVEL OF PARANOIA
--- NOTE | 2019-07-29 13:14 | NUR ---
Met with pt this AM. Pt stated that she has been wanting to talk to this life insurance underwriter because pt is delusional believing that this life insurance underwriter is blaming pt for the of another pt's mother. Pt continued that she can't stop thinking of what she might have done to cause this person's . Reassured pt that this life insurance underwriter never accused pt of harming another and that pt has no connection to the mother of the other pt. Pt asked if this life insurance underwriter was sure of this. Again reassured pt that pt has no invovlement with the other pt and her family. Pt accepted this answer and began to eat her breakfast.
--- NOTE | 2019-07-29 15:22 | NUR ---
Discharge Plan remains unchanged. Pt. will return home with her . Plan to discharge Next week.
--- NOTE | 2019-07-29 15:40 | NUR ---
PM GROUP PT IS UNABLE AT THIS TIME TO ATTEND GROUP THERAPY DUE TO HIGH LEVEL OF PARANOIA. PT STAYED IN HER ROOM
--- NOTE | 2019-07-29 16:16 | NUR ---
PATIENT C/O LOWER BACK PAIN, RATING 7 OUT OF 10, DESCRIBING ACHING. PATIENT REQUESTING AND RECEIVED AT THIS TIME PRN PO TYLENOL PER PRN ORDER. WILL CONTINUE TO MONITOR FOR EFFECTIVENESS.
--- NOTE | 2019-07-29 16:50 | NUR ---
P- ISOLATIVE TO ROOM. HOPELESS/HELPLESS. HEARING VOICES BLAMING HER. TIRED. PARANOID. C/O LOWER BACK PAIN. I- ASSESS MOOD, ORIENTATION, SI/HI, HALLUCINATIONS, DELUSIONS OR PAIN. ASSESS HALLUCINATIONS FOR COMMAND HALLUCINATIONS. PROVIDE WITH MEDICATIONS ON TIME WITH EDUCATION ON EACH. 1:1 THERAPEUTIC INTERACTION WITH EMOTIONAL SUPPORT AND VENTILATION OF FEELINGS. PROVIDE WITH RELAXATION AND COPING SKILLS. PROVIDE WITH LOW STIMULI/QUIET ENVIRONMENT. REASSURE PT OF HER SAFETY ON THE UNIT. PROVIDE WITH PRN TYLENOL, SEE EMAR/DOCUMENTATION FOR FURTHER DETAIL. R- ALERT AND ORIENTED X4. PT STATES THAT HER MOOD IS SLIGHTLY ANXIOUS BUT NOT BAD, SLIGHTLY SAD. PT STATES THAT SHE STILL HEARS THE VOICES BLAMING HER FOR THINGS BUT IF SHE IS IN HER ROOM WITH THE DOOR SHUT, THEN THE VOICES ARE NOT LOUD. PT STATED THAT IT IS EASIER FOR HER TO RELAX AND NOT FEEL ANXIOUS BY HERSELF WITH LOW STIMULI ENVIRONMENT. PT COMES OUT OF HER ROOM INTERMITTENTLY AND TO EAT HER MEALS IN THE QUIET ROOM AWAY FROM OTHERS. PT'S CAME TO VISIT AND HAD HIM LEAVE DUE TO GETTING TO PARANOID THINKING THAT OTHERS WERE TALKING ABOUT HER. PT REFUSING TO TALK TO HER ON THE PHONE WHEN HE CALLS. 1:1 THERAPEUTIC INTERACTION EFFECTIVE. LOW STIMULI ENVIRONMENT EFFECTIVE. PT DENIES COMMAND HALLUCINATIONS. PT SLEEPING INTERMITTENTLY THROUGHOUT THE DAY, PT STATED THAT SHE IS JUST VERY TIRED TODAY. PRN TYLENOL EFFECTIVE FOR BACK PAIN. NO S/S OF DISTRESS NOTED. RESPS EVEN AND UNLABORED ON ROOM AIR. GAIT STEADY WHILE AMBULATING. MAKES NEEDS KNOWN. EATING AND DRINKING ADEQUATELY. MEDICATION COMPLIANT WITH NO DIFFICULTIES. DENIES SI/HI. UTILIZING COPING TECHNIQUE DEEP BREATHING WHEN OVERLY ANXIOUS. P- ASSESS MOOD, ORIENTATION, SI/HI, HALLUCINATIONS, DELUSIONS OR PAIN EVERY SHIFT. PROVIDE WITH MEDICATIONS ON TIME WITH EDUCATION ON EACH. PROVIDE WITH LOW STIMULI ENVIRONMENT. ENCOURAGE TO UTILIZE RELAXATION TECHNIQUES AND COPING TECHNIQUES. 1:1 THERAPEUTIC INTERACTION WITH EMOTIONAL SUPPORT AND VENTILATION OF FEELINGS PROVIDED WHEN NECESSARY. REASSURE PATIENT OF HER SAFETY OFTEN. Q15 MINUTE CHECKS MAINTAINED FOR SAFETY.
--- NOTE | 2019-07-29 17:10 | NUR ---
PRN PO TYLENOL EFFECTIVE FOR LOWER BACK PAIN. NO VOICED COMPLAINTS AT THIS TIME.
--- NOTE | 2019-07-29 17:10 | NUR ---
Shift chart check completed.
[2019-07-29 19:35] VITALS: BP 115/74
--- NOTE | 2019-07-29 23:34 | NUR ---
P-ISOLATIVE, PARANOID. PATIENT ALERT AND ORIENTED. PATIENT WITH NO RESPIRATORY DISTRESS. PATIENT WITH NO SUICIDAL OR HOMICIDAL IDEATIONS. PATIENT WITH PARANOID DELUSIONS AND FEELS THAT SHE IS IN TROUBLE AND THAT SOMEONE IS SETTING HER UP. PATIENT ALSO HAVING AUDITORY HALLUCINATIONS AND STATING TO THIS NURSE THAT "THE VOICES ARE TALKING TO ME AND I WANT THEM TO STOP". I-REDIRECTION WITH 1:1 THERAPEUTIC INTERVENTIONS. EDUCATE AND ENCOURAGE MEDICATION COMPLIANCE R-PATIENT REQUEST VISTARIL AT FOR INCREASE ANXIETY. VISTARIL WITH EFFECTIVE RESULTS AT THIS TIME. PATIENT REFUSED TO LAY IN BED AT THIS TIME. PATIENT SITTING ON MAT BESIDE BED AND STATING TO THIS NURSE "I DON'T HEAR THE VOICES BAD IF I SIT OR TRY TO SLEEP HERE". PATIENT MEDICATION COMPLIANT. PATIENT REFUSED NOURISHMENT AT AND IS ISOLATIVE TO ROOM. P-CONTINUE TO ENCOURAGE MEDICATION COMPLIANCE, ENCOURAGE GROUP THERAPY WHILE AWAKE
--- NOTE | 2019-07-30 05:53 | NUR ---
PATIENT SLEPT 7 HOURS OF INTERRUPTED SLEEP THROUGHOUT SHIFT. Q 15 MINUTE CHECKS MAINTAINED. 24 HR chart check completed.
[2019-07-30 07:38] VITALS: BP 105/68
--- NOTE | 2019-07-30 08:00 | NUR ---
Treatment Plan meeting with Dr. Marti, RN, AT, SW and Analyst [employer]. Plan for discharge next week. Pt. will return home.
--- NOTE | 2019-07-30 09:37 | NUR ---
P: PARANOIA, EXPRESSES STATEMENTS OF HOPELESS, POOR ABILITY JUDGEMENT, INABILITY TO DISTRACT SELF FROM VOICES, ISOLATIVE I: SPOKE WITH PT THIS MORNING IN WHICH SHE EXPRESSED CONCERNED ABOUT OTHER PEOPLE TRYING TO RUIN HER LIFE. PT UNABLE TO STATE ABOUT PRESENT BUT CONTINUED TO TALK ABOUT ISSUES IN THE PAST. TALKED WITH HER ABOUT WRITING DOWN HER CONCERNS FROM THE PAST AND THEN WE CAN DISCUSS THEM. ALSO SET PHYSICAL GOALS FOR THE DAY WITH TIME LINE SET BY PT. 0930 PT WAS TO CLEAN HER ROOM BY. 10 AM PT WOULD EXIT HER ROOM TO QUIET ROOM IN GENERAL AREA TO COLOR OR WORK INDEPENDANTLY ON HER LIST FOR MINIMUM 15 MIN. PT TO GET A SHOWER THIS AFTER NOON AFTER VISITING HOURS AND TO HAVE ANOTHER 15 MIN OUT OF HER ROOM MINIMUM R: AT THIS TIME PT ROOM IS CLEAN, SHE DISPOSED OF CUPS, TISSUES, AND OTHER CLUTTER ITEMS. SHE SPOKE ON THE PHONE WITH HER SPOUSE, AND IS PREPARED TO COME DOWN AT 10AM, STATED IT HELPS SOME P: CONTINUE TO KEEP HER WITH GUIDLINES AND ENCOURAGE INTERACTION WITH OTHERS. PT REPORTS VOICES AND SHE HEARS EVERYONE TALKING ABOUT HER. PARANOIA CONTINUES TO BE PRESENT
--- NOTE | 2019-07-30 12:01 | NUR ---
AM GROUP PT IS UNABLE TO ATTEND GROUP THERAPY AT THIS TIME DUE TO HIGH LEVEL OF PARANOIA
--- NOTE | 2019-07-30 13:40 | NUR ---
Met with pt individually in her room. Pt looked drowsy and stated that she is just so tired of not trusting anyone. Pt spoke of spending time in a quiet room and that she hears all the talking through the tenorio, which causes pt to believe that people are talking about her. Pt stated that she thought she could trust this underwriter solicitation director but now pt is believing that this underwriter solicitation director is involved in "something not good" in this hospital. Empathized with pt and confirmed to her that this underwriter solicitation director understands pt's ayala with mistrust. Offered to pt that she could trust this underwriter solicitation director but again confirmed to pt that this underwriter solicitation director understands if pt is unable to do so. Pt then stated that she wishes that she could just be totally alone for the rest of her life. Gently challenged pt's thoughts on this. Reminded pt that pt states often that she is lonely and that pt would like to have friends. Pt agreed with this. Discussed how pt is in a vicious [place] - wanting people in her life, but due to paranoia, pt's inability to trust people to be in her life. Pt became tearful as this was discussed. Pt also spoke about her temple and that she believes that the temple is abandoning her and her . Empathized with pt. Pt then stated that she felt exhausted and that she just wanted to try to rest. Confirmed with pt that this underwriter solicitation director would be available if pt would like to talk at a different time.
--- NOTE | 2019-07-30 13:57 | NUR ---
Met with pt's Ricardo before he visited with pt and then briefly again after he had visited with pt. Ricardo shared that he cannot get pt out of their home. He explained that there is a bench right outside the door of their home. He is constantly encouraging her to sit on the bench with him, but pt is unable to do so because of her paranoia. Ricardo became tearful as he shared further about their life together. Support provided to Ricardo. After visiting with pt, Ricardo informed this automobile service writer that pt continues to be very paranoid. He stated that pt did not want to spend any time with him. Pt stated that she was tired and that she wanted to rest in her room. Ricardo also stated that pt told him to not call her tonight. Ricardo was tearful as he shared this and he stated, "I'm not ready to lose her yet." Support provided to Ricardo.
--- NOTE | 2019-07-30 14:32 | NUR ---
The patient has no complaints and is resting comfortably. HEATHER JONES
--- NOTE | 2019-07-30 15:39 | NUR ---
PM GROUP PT IS UNABLE TO ATTEND GROUP THERAPY AT THIS TIME DUE TO HIGH LEVEL OF PARANOIA
[2019-07-30 19:12] VITALS: BP 122/76
--- NOTE | 2019-07-31 02:50 | NUR ---
NO ADVERSE BEHAVIORS NOTED. PT ALERT AND ORIENTED X4. PT CALM, COOPERATIVE, ISOLATIVE TO SELF, ONLY COMING DOWN FOR HS SNACK. MEDICATION COMPLIANT WITHOUT DIFFICULTY. PT DENIES SI/HI AND HALLUCINATIONS. NO NOTED RESPONDING TO INTERNAL STIMULI. PARANOIA/DELUSIONS NOTED. NO PHYSICAL COMPLAINTS VOICED. PT CURRENTLY LAYING DOWN WITH EYES CLOSED, RESPIRATIONS EASY AND REGULAR, NO SIGNS OR SYMPTOMS OF DISTRESS NOTED. PLAN IS TO CONTINUE TO MONITOR MOOD AND BEHAVIORS. PROVIDE 1:1 FOR VENTILATION OF FEELINGS. ENCOURAGE MEDICATION COMPLIANCE AND EDUCATE. MAINTAIN Q 15 MIN CHECKS.
--- NOTE | 2019-07-31 02:58 | NUR ---
24 HOUR CHART CHECK COMPLETED.
--- NOTE | 2019-07-31 05:45 | NUR ---
PATIENT OBSERVED ON Q 15 MIN CHECKS TO HAVE SLEPT APPROX 8 HOURS WITH NO AWAKENINGS OR SIGNS AND SYMPTOMS OF DISTRESS NOTED.
[2019-07-31 08:56] VITALS: BP 133/78
--- NOTE | 2019-07-31 10:42 | NUR ---
DR. HARRIS ON UNIT TO ASSESS PATIENT.
--- NOTE | 2019-07-31 11:58 | NUR ---
AM/ART/MUSIC PT UNABLE TO ATTEND GROUP AT THIS TIME DUE TO EXTREME PARANOIA.
--- NOTE | 2019-07-31 16:06 | NUR ---
PM/LEISURE SKILLS.MUSIC PT UNABLE TO ATTEND DUE TO HIGH LEVELS OF PARANOIA AT THIS ITME.
[2019-07-31 19:53] VITALS: BP 136/83
--- NOTE | 2019-08-01 01:06 | NUR ---
P-PARANOIA, AUDITORY HALLUCINATIONS. PT STATES THAT SHE CONTINUES TO HAVE AUDITORY HALLUCINATIONS OF WHAT SOUNDS LIKE PEOPLE TALKING ABOUT HER IN THE HALLWAY. I-PROVIDED 1:1 FOR VENTILATION OF FEELINGS WITH EMOTIONAL SUPPORT. PRESENTED REALITY NEEDED. REASSURED PT OF SAFETY. MONITOR SLEEP. R- PT REMAINS ISOLATIVE TO ROOM AND BED, ONLY COMING OUT FOR FOOD OR DRINK. PT STATED SHE BELIEVES BEING IN THE HOSPITAL AND AROUND OTHER PATIENTS IS MAKING HER PARANOIA AND HALLUCINATIONS WORSE, THAT SHE HOPES TO GO HOME ON FRIDAY TO BE IN A MORE QUIET ENVIRONMENT. PT CALM, COOPERATIVE, ALERT AND ORIENTED X4. MEDICATION COMPLIANT WITHOUT DIFFICULTY. PT DENIES ANY SI/HI OR PAIN. PT CURRENTLY LAYING DOWN, EYES CLOSED, RESPIRATIONS EASY AND REGULAR. PRN VISTARIL EFFECTIVE. P-CONTINUE TO MONITOR MOOD AND BEHAVIORS. PROVIDE 1:1 WITH EMOTIONAL SUPPORT. ENOURAGE MEDICATION COMPLIANCE. MAINTAIN Q 15 MIN CHECKS.
--- NOTE | 2019-08-01 01:53 | NUR ---
24 HOUR CHART CHECK COMPLETED.
--- NOTE | 2019-08-01 05:25 | NUR ---
PATIENT OBSERVED ON Q 15 MIN CHECKS TO HAVE SLEPT APPROX 8 HOURS WITH X2 BRIEF AWAKENINGS DURING STAFF CHECKS. NO SIGNS OR SYMPTOMS OF DISTRESS NOTED.
[2019-08-01 08:03] VITALS: BP 121/69
--- NOTE | 2019-08-01 09:29 | NUR ---
P: PATIENT ADMITS TO HEARING VOICES ALL THE TIME, STATES IT A MALE VOICE, DENIES COMMAND HALLUCINATIONS. HAVING AUDITORY HALLUCINATION, PATIENT ISOLATIVE TO ROOM DUE TO BEING PARANOID WITH OTHER PEOPLE ARE TALKING. PATIENT BECAME AGITATED AFTER TALKING TO SPOUSE ON THE PHONE. PATIENT REQUESTING MEDICATION FOR FEELING AGITATED. WITHDRAWN. I: ONE ON ONE PROVIDE, ENCOURAGED PATIENT COME OUT OF ROOM FOR CRAFTS AND SUM LAMP THERAPY. PRN VISTARIL 50MG PO GIVEN PER REQUEST. R: MUCH ENCOURAGEMENT PROVIDED AND EFFECTIVE. PATIENT IS ALERT AND ORIENTED X4, ABLE TO VOICE NEEEDS. MOOD IS DEPRESSED, ANXIOUS AND HOPELESS/HELPLESS. INDEPENDENT WITH ACTIVITIES OF DAILY LIVING, CONTINENT OF BOWEL AND BLADDER, SET UP FOR MEALS, INTAKES IMPROVING. Q 15 MINUTE SAFETY CHECKS MAINTAINED. MEDICATION COMPLIANT WITH EDUCATION PROVIDED. P: MONITOR ANXIETY, MOOD, VOICE PARANOIA AND HALLUCINATIN; PROVIDE ONE ON ONE, REDIRECTION; ENCOURAGE CRAFT SESSIONS. LISTENING TO WHITE SOUND MUSIC; ASSIST WITH DEVELOPING COPING SKILLS.
--- NOTE | 2019-08-01 10:30 | NUR ---
PATIENT RESTING IN BED. ASKED IF VISTARIL HELP, PATIENT STATED "YES" PRN VISTARIL EFFECTIVE.
--- NOTE | 2019-08-01 12:27 | NUR ---
AM GROUP DUE TO HIGH LEVELS OF PARANOIA PT IS UNABLE TO ATTEND AT THIS TIME.
--- NOTE | 2019-08-01 15:04 | NUR ---
Shift chart check completed.
--- NOTE | 2019-08-01 15:21 | NUR ---
DR. HARRIS ON UNIT TO ASSESS PATIENT.
--- NOTE | 2019-08-01 17:42 | NUR ---
PATIENT UP OUT OF ROOM FOR ONE HOUR. PATIENT ATE 100% OF MEAL, ONE ON ONE PROVIDED DEVELOPING COPING SKILLS WITH PATIENT AND ENCOURAGING TO PRACTICE. PATIENT LISTENED TO WHITE SOFT MUSIC WHICH PATIENT STATED "IT'S RELAXING AND HELPING" ONE ON ONE EFFECTIVE.
[2019-08-01 20:00] VITALS: BP 112/77
--- NOTE | 2019-08-01 20:51 | NUR ---
P--PARANOIA. AUDITORY HALLUCINATIONS I--MEDICATED PER ORDERS. VISTARIL GIVEN AT CLIENTS REQUEST. TRIED TO HAVE 1;1 WITH CLIENT ABOUT DISCHARGE R- PLEASENT AT THIS TIME. STATES SHE IS TIRED AND DOESN'T WANT TO TALK. STATES VISTARIL TAKES THE EDGE OFF FOR HER. DECLINED SNACK SHE IS NOT HUNGRY P--MONITOR FOR CHANGES IN MOOD/BEHAVIOR. BE AVAILABLE TO TALK IF NEEDED. CONTINUE Q 15 MINUTE SAFETY CHECKS.
--- NOTE | 2019-08-02 04:56 | NUR ---
HAS SLEPT MINIMAL TONIGHT. ANXIOUS ABOUT DISCHARGE. MINIMAL TALKING FROM CLIENT. MOST IS QUIET YES AND NO ANSWERS
--- NOTE | 2019-08-02 06:40 | NUR ---
SLEPT A BROKEN 5 HOURS. STATES EXCITED ABOUT GOING HOME. DRESS WITH HAIR DONE
--- NOTE | 2019-08-02 07:44 | NUR ---
PATIENT SITTING IN QUIET ROOM EATING BREAKFAST. NO S/S OF DISTRESS NOTED. RESPS EVEN AND UNLABORED ON ROOM AIR.
[2019-08-02 08:00] VITALS: BP 116/72
--- NOTE | 2019-08-02 08:00 | NUR ---
Treatment Plan meeting with Dr. Marti, RN, AT, SW and Cyber Forensics Analyst. Plan for discharge today. Pt. will return home with her . Follow up appointments have been scheduled.
--- NOTE | 2019-08-02 09:11 | NUR ---
DR. PLATT MADE AWARE OF DISCHARGE TODAY.
[2019-08-02] MEDS ORDERED: DIVALPROEX SOD500 MG PO (09:18)
[2019-08-02] MEDS ORDERED: HYDROXYZINE PAM25 M1 PO (09:18)
[2019-08-02] MEDS ORDERED: CLONAZEPAM1 MG PO (09:18)
[2019-08-02] MEDS ORDERED: KLONOPIN2 M1 PO (09:18)
--- NOTE | 2019-08-02 10:20 | NUR ---
Met with pt individually in her room. Pt stated that she was very drowsy. Pt spoke of discharging today and then asked if this senior grant writer could find a ride home for pt. Pt further stated that she cannot ride in her 's car because she believes that it is a "marked car" and that it is being watched. Pt then spoke further about her continued paranoia. Pt stated that she knows that when she returns home, she will continue to believe that the neighbor is out to get her, that pt's trailer is bugged, and that she is being watched through the TV. Pt stated, "No one knows what it is like to live my life. It is not a life. My knows but no one else knows. They are making me listen to noise. How is that going to help me leave my house? I'll tell you. It won't." Empathized with pt.
--- NOTE | 2019-08-02 10:30 | NUR ---
Spoke with pt's Ricardo and informed him that pt is discharge today. Explained to Ricardo that transportation is the concern and may prevent pt from leaving today. Ricardo voiced understanding.
[2019-08-02] MEDS ORDERED: ZOFRAN4 MG PO (11:07)
[2019-08-02] MEDS ORDERED: NUPLAZID34 MG PO (11:20)
--- NOTE | 2019-08-02 11:24 | NUR ---
PT C/O NAUSEA. PT REQUESTING AND RECEIVED AT THIS TIME PRN PO ZOFRAN PER ORDER. WILL CONTINUE TO MONITOR FOR EFFECTIVENESS.
--- NOTE | 2019-08-02 11:40 | NUR ---
AM GROUP/EXERCISE AND PARACHUTE PT IS UNABLE TO PARTICIPATE IN GROUP THERAPY AT THIS TIME DUE TO HIGH LEVEL OF PARANOIA. PT IS SET TO BE DISCHARGED FROM THE UNIT TODAY
--- NOTE | 2019-08-02 12:00 | NUR ---
Shift chart check completed.
--- NOTE | 2019-08-02 12:41 | NUR ---
PT STATES THAT PRN ZOFRAN WAS EFFECTIVE. NO FURTHER COMPLAINTS AT THIS TIME.
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
--- NOTE | 2019-08-02 12:51 | NUR ---
PT OFF THE UNIT VIA WHEELCHAIR, ESCORTED BY MENTAL HEALTH SPECIALIST AND . DISCHARGE PAPER WORK/BELONGINGS/PRESCRIPTIONS GIVEN TO PATIENT, EDUCATED ON FOLLOW UP APPTS AND DISCHARGE MEDICATIONS AND PRESCRIPTIONS. PATIENT GIVEN 35 NUPLAZID PILLS. NO S/S OF DISTRESS NOTED. RESPS EVEN AND UNLABORED ON ROOM AIR.
--- NOTE | 2019-08-02 13:06 | NUR ---
Patient discharged to home with her today. Follow-up was scheduled with [facility] [place] office. This physician underwriter learned from the [place] office of [facility] that the SUPERVISOR VENEER there referred pt to their [place] location in order for the psychiatrist Dr Georges to see her as the SUPERVISOR VENEER is unsure of further treatment for pt. While at [facility], pt's anxiety lessened but pt's paranoia remained. Pt isolated throughout most of her stay due to the paranoia. Pt was pleasant with this physician underwriter but would also voice mistrust at times during interaction.
== END 2019-08-02 12:51 | disposition home or self-care (01) | DRG 885 ==
LOC: ED 08:17 → EDHOLD 11:09 → 3N 11:09
PROVIDERS: Emergency Medicine; Nurse Practitioner Women's Health; ADMIT Psychiatry & Neurology Psychiatry
DX: F25.0 Schizoaffective disorder, bipolar type (principal); F22 Delusional disorders; E55.9 Vitamin D deficiency, unspecified; F41.1 Generalized anxiety disorder; K21.9 Gastro-esophageal reflux disease without esophagitis; N18.3 Chronic kidney disease, stage 3 (moderate); I12.9 Hypertensive chronic kidney disease with stage 1 through stage 4 chronic kidney disease, or unspecified chronic kidney disease